=== PATIENT | male | born 1970 | race Caucasian/White ===

== ENCOUNTER 2018-06-22 18:12 | Inpatient (IN) ==
--- NOTE | 2018-06-22 19:45 | Internal Med History&Physical ---
Addendum entered and electronically signed by Eros Martinez DO 06/23/18 01:09: Correct Date of Encounter: 06/22/18 Original Note: <Eros Martinez - Last Filed: 06/23/18 00:07> Date of Encounter: 06/23/18 Time of Encounter: 19:44 Internal Medicine - H&P: HPI Chief complaint: Hyperglycemia Admitted From: Intrahospital Transfer ([facility]) Plans for Post Hospital Care: Home History of present illness: Mr. Harry is a 47 year old male with a past medical history of CAD status post CABG, AAA, hypertension, MEGHAN, and tobacco dependence who presented from [facility] ER secondary to DKA. His anion gap is 16 he was started on insulin drip. Triglyceride level was not tested. Patient denies history of diabetes in the past and reports recently undergoing left iliac emobilization on 06/13/18 by vascular surgeon, Dr. Clarke. Patient reports associated cramping epigastric pain for the past 1 week, greasy stools, 1 episode of vomiting last night, polydipsia, polyphagia, polyuria, fatigue, blurry vision, headache, dizziness, and worsening tingling in his extremities. Patient reports tingling initially started his head and neck and has now radiated to his bilateral arms and legs. He reports occasional shortness of breath and has not smoked in the past 3 days secondary to current symptoms. Patient also reports 3 days of burning with urination, urinary frequency, urinary urgency, white discharge beneath his foreskin, and has history of Escherichia coli UTI on 05/21/17. He denies any associated muscle weakness, fevers, chills, nausea, diarrhea, constipation, new sexual contacts, or pedal edema. Past Med Surg Social Fam HX - Past Medical History Medical history: arthritis, COPD, coronary artery disease, hyperlipidemia, hypertension Additional medical history: sleep apnea, neuropathy Psychiatric history: depression - Past Surgical History Surgical History: coronary bypass (CABG) (Three-vessel CABG in September 2014) Additional surgical history: Left iliac artery embolization 06/13/18, inguinal hernia repair in childhood, right upper extremity tendon repair - Social History Smoking Status: Current every day smoker Smokeless Tobacco Status: No Alcohol use: none Drug use: none Current living situation: Home, With Family Activity Level: Independent ambulation - Family History Son Hx Family Cardiac Disorders: Yes (Hypertension) Grandmother Hx Family Endocrine Disorder: Yes (DM) Paternal Name: Uncles Hx Family Endocrine Disorder: Yes (DM) Internal Medicine - H&P: Meds Amlodipine Besylate 10 mg PO DAILY 05/21/17 [History] Fluticasone Propionate Nasal [Flonase] 50 mcg NS DAILY 05/21/17 [History] Omeprazole [PriLOSEC] 20 mg PO DAILY 05/21/17 [History] Gabapentin [Neurontin] 800 mg PO TID 06/13/18 [History] Atorvastatin [Lipitor] 40 mg PO HS 06/22/18 [History] Losartan/Hydrochlorothiazide [Hyzaar 100-25 Tablet] 0.5 tab PO BID 06/22/18 [ History] Metoprolol [Lopressor] 25 mg PO BID 06/23/18 [History] Venlafaxine XR (24 HR) [Effexor XR] 75 mg PO DAILY 06/23/18 [History] 3 Allergy/AdvReac Type Severity Reaction Status Date / Time lisinopril Allergy Severe Swelling Verified 05/21/17 16:15 of Lip/Tongue/Throat codeine Allergy Intermediate Difficulty Verified 05/21/17 16:15 Breathing All Systems PM: A 10-system review of systems was performed and is negative for pertinent findings except as documented above in the HPI. - Constitutional Constitutional: anorexia, fatigue, lethargy, no chills, no fever(s), no weight gain, no weight loss - EENT Eyes: blurry vision, change in vision Nose, mouth and throat: dry mouth, no sore throat - Cardiovascular Cardiovascular ROS IM: chest pain (Epigastric), dyspnea, lightheadedness, no palpitations - Respiratory Respiratory: dyspnea on exertion - Gastrointestinal Gastrointestinal: abdominal pain, cramping, nausea, vomiting, no constipation ( 2 BMs today, normal), no diarrhea - Genitourinary Genitourinary ROS male: dysuria, genital pain, urinary frequency, urinary urgency - Musculoskeletal Musculoskeletal ROS IM: tingling, no muscle weakness - Integumentary Integumentary IM: erythema, new lesions - Neurological Neurological ROS: dizziness, headache(s), tingling, weakness, no numbness - Psychiatric Psychiatric: no anxiety, no confusion, no depression - Endocrine Endocrine IM: fatigue, polydipsia, polyphagia, polyuria - Hematologic/Lymphatic Hematologic/Lymphatic: no easy bleeding, no easy bruising - Constitutional General appearance: Present: cooperative, mild distress, pleasant, obese Exam: Conversant - Head Head exam: Present: atraumatic, normocephalic - Eye Eye exam: Present: EOMI, conjuntiva pink, sclera anicteric - ENT ENT exam: Present: mucous membranes dry, normal oropharynx - Neck Neck exam general surgery: Present: supple, trachea midline. Absent: lymphadenopathy - Respiratory Respiratory exam: Present: CTAB. Absent: accessory muscle use, rales, respiratory distress, rhonchi, wheezes - Cardiovascular Cardiovascular exam: Present: RRR, +S1, +S2. Absent: diastolic murmur, gallop, rubs, systolic murmur - GI/Abdominal GI/Abdominal exam: Present: guarding (Voluntary), normal bowel sounds, soft, tenderness (Diffuse tenderness to light and deep palpation), no peritoneal signs. Absent: distended, pulsatile mass - exam: Absent: circumcision (Erythema, no paraphimosis, small amount of white discharge under foreskin) External exam: Present: erythema - Extremities Exam Extremities exam: Present: normal inspection, warm, radial pulses palpable and symmetrical. Absent: calf tenderness, cyanotic, pedal edema - Back Exam Back exam: Present: normal inspection. Absent: paraspinal tenderness, tenderness - Neurological Exam Neurological exam: Present: CN II-XII intact, oriented X3, no focal deficits. Absent: pronater drift, facial droop, speech deficit - Psychiatric Psychiatric exam: Present: normal affect, normal mood - Skin Skin exam: Present: dry, intact Internal Med - H&P Results - Labs CBC & Chem 7: 06/22/18 20:36 - EKG Data -: EKG Interpreted by Myself EKG shows normal: sinus rhythm (new flipped T weighs in leads V2 and V3 since previous EKG 06/13/18) - EKG Data Prior EKG available for review: yes When compared to previous EKG: there are significant changes - Impressions XR/XR chest 1V portable IMPRESSION: No acute findings. No change. D/ / 06/22/2018 15:41:33 Demario Johnson MD / nicolette Interpreting Provider: Demario Johnsno MD R #: [id number] CT/CT head/brain wo con IMPRESSION: Small focus of age-indeterminate ischemia in the left caudate head and adjacent internal capsule. No acute hemorrhage. D/ / Maxwell Shabazz MD / Maxwell Shabazz MD Interpreting Provider: Maxwell Shabazz MD R #: [id number] CT/CT angio aorta w con runoff IMPRESSION: 1. 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 Coils are not present within the adjacent left common iliac artery aneurysm. 2. Stable 5.1 cm infrarenal abdominal aortic aneurysm. As previously noted the recommended follow-up is vascular surgery consultation and six-month follow-up CT scan. 3. Cholelithiasis without evidence for acute cholecystitis. 4. Findings suggest cirrhosis and portal hypertension. 5. Diverticulosis without scan evidence for diverticulitis. D/ / Maxwell Shabazz MD / Maxwell Shabazz MD Interpreting Provider: Maxwell Shabazz MD - Assessment and plan (1) DKA (diabetic ketoacidoses) Current Visit: Yes Status: Resolved Assessment and plan: Glucose level 623, elevated beta hydroxybutyric acid > 2 Anion gap 16, patient started on insulin drip prior to transfer Repeat anion gap 6, start basal insulin and stop insulin drip Qualifiers: Diabetes mellitus type: type 2 Diabetes mellitus complication detail: without coma Qualified Code(s): E11.10 - Type 2 diabetes mellitus with ketoacidosis without coma (2) DM (diabetes mellitus), type 2, uncontrolled Current Visit: Yes Status: Acute Assessment and plan: Newly diagnosed diabetes mellitus type 2 Hemoglobin A1c level 12.0 Continue Accu-Cheks and low dose SSI Patient will need to start antigylcemic therapy upon discharge and close outpatient management of diabetes Dietary consulted for diabetic diet education Qualifiers: Glycemic state: with hyperglycemia Qualified Code(s): E11.65 - Type 2 diabetes mellitus with hyperglycemia (3) Blurry vision, bilateral Current Visit: Yes Status: Acute Assessment and plan: Patient reports headache, blurry vision, and dizziness CT brain revealed small focus of age-indeterminate ischemia in the left caudate head and adjacent internal capsule. No acute hemorrhage. MRI brain pending Bilateral carotid ultrasound pending Continue aspirin Consider neurology consult in AM for further recommendations Patient will need annual eye exams the setting of newly diagnosed diabetes (4) GHASSAN (acute kidney injury) Current Visit: Yes Status: Acute Assessment and plan: Prerenal GHASSAN in the setting of polyuria, polydipsia, DKA Serum creatinine 1.39, baseline 0.97 Continue IV hydration Repeat serum creatinine level 1.10 Continue monitoring (5) CAD (coronary artery disease) Current Visit: Yes Status: Chronic Assessment and plan: Patient had three-vessel CABG in September 2014 Continue aspirin and statin Cardiology consulted Qualifiers: Coronary Disease-Associated Artery/Lesion type: [place] artery [place] vs. transplanted heart: [place] heart Associated angina: with unspecified angina Qualified Code(s): I25.119 - Atherosclerotic heart disease of [place] coronary artery with unspecified angina pectoris (6) EKG abnormality Current Visit: Yes Status: Acute Assessment and plan: Diabetic patient with history of three-vessel CABG in September 2014 EKG shows new flipped T weighs in leads V2 and V3 since previous EKG 06/13/18 Serial troponins < 0.03 x2, trend serial troponins Cardiology consulted for further recommendations Spoke with multi purpose machine operator, Dr. Read, no indication to start Heparin drip at this time. Will continue IV hydration and repeat EKG once contraction alkalosis resolved (7) AAA (abdominal aortic aneurysm) Current Visit: Yes Status: Chronic Assessment and plan: Patient reports cramping abdominal pain 04/11/18 abdominal ultrasound revealed 5.2 cm aortic aneurysm, increased in size from 4.7 cm on 09/26/17 On 06/23/18 patient underwent left iliac artery embolization by vascular surgeon , Dr. Jaimes CTA revealed stable 5.1 cm infrarenal abdominal aortic aneurysm Patient will require future endovascular repair of AAA Continue blood pressure control Continue beta jam for hypertension Continue risk factor modification including tobacco cessation Qualifiers: Presence of rupture: without rupture Qualified Code(s): I71.4 - Abdominal aortic aneurysm, without rupture (8) HTN (hypertension) Current Visit: Yes Status: Chronic Assessment and plan: Continue beta jam Qualifiers: Hypertension type: essential hypertension Qualified Code(s): I10 - Essential (primary) hypertension (9) Hypertriglyceridemia Current Visit: Yes Status: Acute Assessment and plan: Triglyceride level 718, Repeat triglyceride level pending CT reveals cholelithiasis without evidence for acute cholecystitis, and findings suggestive of cirrhosis and portal hypertension. Resume home statin (10) Balanitis Current Visit: Yes Status: Acute Assessment and plan: Uncircumcised patient with history of burning with micturition, urinary frequency, urinary urgency, and 3 days of white discharge beneath foreskin, no paraphimosis Start Clotrimazole 1% twice daily for 7 days and continue good hygiene Patient has history of Escherichia coli UTI on 05/21/17, repeat UA pending (11) Tobacco dependence Current Visit: Yes Status: Chronic Assessment and plan: Tobacco cessation discussed (12) MEGHAN (obstructive sleep apnea) Current Visit: Yes Status: Chronic Assessment and plan: Continue CPAP at bedtime (13) Obesity (BMI 30-39.9) Current Visit: Yes Status: Chronic Assessment and plan: BMI 39.7, lifestyle modification Dietitian consulted (14) DVT prophylaxis Current Visit: Yes Status: Acute Assessment and plan: EPCDs - Time Spent With Patient Total time spent is greater than 50% in coordination of care (as documented) at patient's floor/unit and/or counseling patient: <Facundo Mullins A - Last Filed: 06/24/18 08:50> Date of Encounter: 06/23/18 Internal Medicine - H&P: HPI History of present illness: Mr. Harry is a 47 year old male All Systems PM: A 10-system review of systems was performed and is negative for pertinent findings except as documented above in the HPI. - Constitutional Vitals: Temp Pulse Resp BP Pulse Ox 97.8 F 53 16 148/82 100 06/23/18 00:06 06/23/18 02:00 06/23/18 02:00 06/23/18 02:00 06/23/18 02:00 Internal Med - H&P Results - Labs CBC & Chem 7: 06/23/18 03:07 06/23/18 03:07 Labs: BMP 06/22/18 20:36 Sodium 131 L D Potassium 3.0 L Chloride 94 L Carbon Dioxide 26 BUN 24 H Creatinine 1.10 Glucose 273 H Calcium 9.2 Cardiac Enzymes 06/22/18 Range/Units 20:36 Troponin I < 0.03 (< 0.04) ng/mL Liver Function 06/22/18 Range/Units 20:36 Total Bilirubin 0.7 (0.3-1.0) mg/dL Direct Bilirubin 0.2 (0.0-0.2) mg/dL AST 45 H (13-39) Units/L ALT 48 (7-52) Units/L Alkaline Phosphatase 108 H (34-104) Units/L Albumin 4.1 (3.5-5.7) g/dL Urine 06/23/18 Range/Units 01:25 Urine Color Yellow (Yellow) Urine Clarity Clear (Clear) Urine pH 6.0 (5.0-8.0) pH Units Ur Specific [place] 1.015 (1.010-1.025) Urine Protein 100 H (Neg-Trace) mg/dL Urine Glucose (UA) 500 H (Normal) mg/dL - Impressions ITS Impressions Aorta w/Runoff CTA 06/22/18 19:55 IMPRESSION: 1. 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 Coils are not present within the adjacent left common iliac artery aneurysm. 2. Stable 5.1 cm infrarenal abdominal aortic aneurysm. As previously noted the recommended follow-up is vascular surgery consultation and six-month follow-up CT scan. 3. Cholelithiasis without evidence for acute cholecystitis. 4. Findings suggest cirrhosis and portal hypertension. 5. Diverticulosis without scan evidence for diverticulitis. D/ / Maxwell Shabazz MD / Maxwell Shabazz MD Interpreting Provider: Maxwell Shabazz MD Head CT 06/22/18 20:22 IMPRESSION: Small focus of age-indeterminate ischemia in the left caudate head and adjacent internal capsule. No acute hemorrhage. D/ / Maxwell Shabazz MD / Maxwell Shabazz MD Interpreting Provider: Maxwell Shabazz MD - Assessment and plan (1) DKA (diabetic ketoacidoses) Current Visit: Yes Status: Resolved Qualifiers: Diabetes mellitus type: type 2 Diabetes mellitus complication detail: without coma Qualified Code(s): E11.10 - Type 2 diabetes mellitus with ketoacidosis without coma (2) DM (diabetes mellitus), type 2, uncontrolled Current Visit: Yes Status: Acute Qualifiers: Glycemic state: with hyperglycemia Qualified Code(s): E11.65 - Type 2 diabetes mellitus with hyperglycemia (3) Obesity (BMI 30-39.9) Current Visit: Yes Status: Chronic (4) MEGHAN (obstructive sleep apnea) Current Visit: Yes Status: Chronic (5) Balanitis Current Visit: Yes Status: Acute (6) AAA (abdominal aortic aneurysm) Current Visit: Yes Status: Chronic Qualifiers: Presence of rupture: without rupture Qualified Code(s): I71.4 - Abdominal aortic aneurysm, without rupture (7) HTN (hypertension) Current Visit: Yes Status: Chronic Qualifiers: Hypertension type: essential hypertension Qualified Code(s): I10 - Essential (primary) hypertension (8) DVT prophylaxis Current Visit: Yes Status: Acute (9) CAD (coronary artery disease) Current Visit: Yes Status: Chronic Qualifiers: Coronary Disease-Associated Artery/Lesion type: bypass graft [place] vs. transplanted heart: [place] heart Associated angina: without angina Qualified Code(s): I25.810 - Atherosclerosis of coronary artery bypass graft(s) without angina pectoris (10) Blurry vision, bilateral Current Visit: Yes Status: Acute (11) GHASSAN (acute kidney injury) Current Visit: Yes Status: Resolved (12) Hypertriglyceridemia Current Visit: Yes Status: Acute (13) EKG abnormality Current Visit: Yes Status: Acute (14) Tobacco dependence Current Visit: Yes Status: Chronic - Time Spent With Patient Total time spent is greater than 50% in coordination of care (as documented) at patient's floor/unit and/or counseling patient: - Attending Attestation seen and examined. Chart reviewed. Case discussed with resident. Patient admitted to ICU for close monitoring and treatment for DKA in the setting of abdominal pain and history of 5.2 cm abdominal aortic aneurysm and EKG changes. Case discussed with cardiology, Dr. Read, who reviewed the EKG. Does not feel findings on EKG to be secondary to acute coronary syndrome. Patient received loading dose of aspirin. Will continue monitoring on telemetry. Patient also sent for abdominal CT due to abdominal pain and history of 5.2 cm aortic aneurysm. Finding shows stable 5.1 cm infrarenal abdominal aortic aneurysm. At this time we will continue treatment for DKA. We will monitor closely ICU. Continue with blood pressure and Pain control.
[2018-06-22] MEDS ORDERED: Naloxone 0.4 MG/ML INJ IVP PRN ×2 (19:46→23:05)
[2018-06-22] MEDS ORDERED: OXYCODONE Oral CONC 10 MG/0.5 ML ORAL.SYG SL PRN ×2 (19:46)
[2018-06-22] MEDS ORDERED: *HR* Dextrose 50 % in Water (Syg) 50 ML SYRINGE IVP PRN ×2 (19:46→21:38)
[2018-06-22] MEDS ORDERED: D5% in 0.45% NACL w KCl 20 MEQ/1,000 ML MLS IVC PRN (19:46)
[2018-06-22] MEDS ORDERED: Ondansetron 4 MG/2 ML VIAL IVP PRN (19:46)
[2018-06-22] MEDS ORDERED: Insulin LISPRO 300 UNITS/3 ML VIAL SQ PRN (19:46)
[2018-06-22] MEDS ORDERED: Ipratropium/Albuterol Neb 3 ML IH PRN (19:54)
[2018-06-22] MEDS ORDERED: Isovue-370 500 ML INFUS..BTL IV ONE (19:55)
[2018-06-22] MEDS ORDERED: Pantoprazole 40 MG VIAL IVP SCH (20:00)
[2018-06-22] MEDS ORDERED: 0.45 % Sodium Chloride w/KCl 20 MEQ/1,000 ML MLS IVC SCH (20:00)
[2018-06-22] MEDS ORDERED: Insulin Human Regular 100 UNIT in 0.9 % Sodium Chloride 100 ML IVC SCH (20:00)
[2018-06-22] MEDS ORDERED: Aspirin 325 MG TABLET PO ONE (20:30)
[2018-06-22 21:04] LABS: INR 1.2; Prothrombin Time 13.1 Seconds (9.4-12.1)
[2018-06-22 21:15] LABS: Troponin I < 0.03 ng/mL (< 0.04)
[2018-06-22 21:18] LABS: Alanine Aminotransferase 48 Units/L (7-52); Albumin 4.1 g/dL (3.5-5.7); Albumin/Globulin Ratio 1.2 (1.1-2.2); Alkaline Phosphatase 108 Units/L (34-104); Aspartate Amino Transferase 45 Units/L (13-39); BUN/Creatinine Ratio 22 (6-26); Bilirubin,Direct 0.2 mg/dL (0.0-0.2); Bilirubin,Indirect 0.5 mg/dL (0.0-1.2); Bilirubin,Total 0.7 mg/dL (0.3-1.0); Blood Urea Nitrogen 24 mg/dL (6-20); Calcium 9.2 mg/dL (8.6-10.3); Carbon Dioxide 26 mEq/L (23-29); Chloride 94 mEq/L (98-107); Chol/HDL Ratio 10.9 (0-4.9); Cholesterol 217 mg/dL (< 200); Globulin 3.3 g/dL (2.4-3.5); Glucose 273 mg/dL (70-105); HDL Cholesterol 20 mg/dL (40-59); Magnesium 2.2 mg/dL (1.6-2.6); Osmolality,Calculated 286 (280-300); Sodium 131 mEq/L (136-145); Total Protein 7.4 g/dL (6.4-8.9); Triglycerides 718 mg/dL (< 150); eGFR For Non-African Americans > 60 (> 60)
[2018-06-22] MEDS ORDERED: D5% in Water 1,000 ML IVC PRN (21:38)
[2018-06-22] MEDS ORDERED: Dextrose Gel 15 GM/37.5 ML TUBE PO PRN ×2 (21:38)
[2018-06-22] MEDS ORDERED: 0.9 % Sodium Chloride 1,000 ML IVC SCH (22:00)
[2018-06-22] MEDS ORDERED: Insulin DETEMIR 100 UNIT/ML X5UNITS SQ SCH (22:30)
[2018-06-22] MEDS: Insulin LISPRO 300 UNITS/3 ML VIAL SQ SCH (22:31)
[2018-06-22] MEDS: Clotrimazole 1% CRM 15 GM TUBE TP SCH (22:34)
[2018-06-22] MEDS ORDERED: Gadolinium Contrast Agent (WT Based) IV PRN (22:49)
[2018-06-23 01:40] LABS: Bilirubin,Urine Small (Negative); Blood,Urine Trace-intact (Negative); Clarity,Urine Clear (Clear); Color,Urine Yellow (Yellow); Glucose,Urine (UA) 500 mg/dL (Normal); Ketones,Urine Trace mg/dL (Negative); Leukocyte Esterase,Urine Negative (Negative); Nitrite,Urine Negative (Negative); Protein,Urine 100 mg/dL (Neg-Trace); Specific Gravity,Urine 1.015 (1.010-1.025)
[2018-06-23 01:50] LABS: Bacteria,Urine Few per hpf (None-Few); Hyaline Casts,Urine Few per lpf (None-Few); Mucus,Urine Few (Few); RBC,Urine 0-3 per hpf (0-3); Squamous Epithelial Cell,Urine Few per lpf (None-Few); WBC,Urine 0-3 per hpf (0-3); Yeast,Urine Moderate per hpf (None Seen)
[2018-06-23 03:40] LABS: Basophils % 0.3 %; Eosinophils # 0.1 K/mcL (0.0-0.6); Eosinophils % 1.2 %; Hematocrit 40.4 % (37.5-50.1); Hemoglobin 14.3 g/dL (12.9-16.9); Immature Granulocytes % 0.2 % (0-4); Lymphocytes # 2.9 K/mcL (0.6-4.6); Lymphocytes % 32.7 %; Mean Corpuscular HGB Conc 35.4 g/dL (31.6-35.5); Mean Corpuscular Hemoglobin 31.8 pg (28.0-33.3); Mean Platelet Volume 11.2 fL (9.4-12.4); Monocytes # 0.9 K/mcL (0.0-1.3); Monocytes % 10.5 %; Neutrophils # 4.9 K/mcL (1.6-8.9); Platelet Count 131 K/mcL (140-400); Red Blood Count 4.49 M/mcL (4.19-5.50); Red Cell Distribution Width 12.8 % (11.5-14.5); Segmented Neutrophils % 55.1 %
[2018-06-23 04:02] LABS: Alanine Aminotransferase 43 Units/L (7-52); Albumin 3.7 g/dL (3.5-5.7); Albumin/Globulin Ratio 1.2 (1.1-2.2); Alkaline Phosphatase 96 Units/L (34-104); Aspartate Amino Transferase 48 Units/L (13-39); BUN/Creatinine Ratio 24 (6-26); Bilirubin,Total 0.6 mg/dL (0.3-1.0); Blood Urea Nitrogen 23 mg/dL (6-20); Calcium 8.8 mg/dL (8.6-10.3); Carbon Dioxide 28 mEq/L (23-29); Chloride 96 mEq/L (98-107); Globulin 3.1 g/dL (2.4-3.5); Glucose 170 mg/dL (70-105); Osmolality,Calculated 282 (280-300); Potassium 3.2 mEq/L (3.5-5.1); Sodium 132 mEq/L (136-145); Total Protein 6.8 g/dL (6.4-8.9); eGFR For Non-African Americans > 60 (> 60)
--- NOTE | 2018-06-23 08:35 | Internal Med Progress Note ---
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 Patient's DKA has resolved this morning Patient awaiting MRI for concerns of possible CVA due to visual changes; suspect visual changes secondary to uncontrolled hyperglycemia Patient also with EKG changes therefore cardiology consulted with recommendations for echocardiogram and possible stress/LHC - Exam Vitals: Temp Pulse Resp BP Pulse Ox 97.8 F 53 16 143/86 100 06/23/18 00:06 06/23/18 06:00 06/23/18 06:00 06/23/18 06:00 06/23/18 06:00 Exam: Gen.: Nonacute distress, alert and oriented 3 ENT: Mucosal membranes moist Respiratory: Lungs are clear to auscultation bilaterally without any wheezing rhonchi or rales Cardiovascular: Normal S1 and S2 regular rate rhythm no murmurs rubs or gallops Abdomen: Soft, nontender and nondistended with positive bowel sounds Extremities: No lower extremity edema Skin: Normal colornt - Assessment and Plan (1) DKA (diabetic ketoacidoses) Current Visit: Yes Status: Resolved Assessment and Plan: Resolved; patient started on basal insulin Patient with a hemoglobin A1c of 12.0 Will continue to monitor (2) Blurry vision, bilateral Current Visit: Yes Status: Acute Assessment and Plan: Patient reports headache, blurry vision, and dizziness Suspect symptoms secondary to uncontrolled hyperglycemia CT brain revealed small focus of age-indeterminate ischemia in the left caudate head and adjacent internal capsule. No acute hemorrhage. MRI brain pending Bilateral carotid ultrasound pending (3) EKG abnormality Current Visit: Yes Status: Acute Assessment and Plan: Diabetic patient with history of three-vessel CABG in September 2014 EKG shows new flipped T weighs in leads V2 and V3 since previous EKG 06/13/18 Serial troponins < 0.03 x2, trend serial troponins Cardiology consulted for recommendations for echocardiogram and possible stress tests/LHC Appreciate any further recommendations (4) CAD (coronary artery disease) Current Visit: Yes Status: Chronic Assessment and Plan: Patient had three-vessel CABG in September 2014 Continue aspirin and statin Cardiology consulted (5) AAA (abdominal aortic aneurysm) Current Visit: Yes Status: Chronic Assessment and Plan: Patient reports cramping abdominal pain 04/11/18 abdominal ultrasound revealed 5.2 cm aortic aneurysm, increased in size from 4.7 cm on 09/26/17 On 06/23/18 patient underwent left iliac artery embolization by vascular surgeon , Dr. Jaimes CTA revealed stable 5.1 cm infrarenal abdominal aortic aneurysm Patient will require future endovascular repair of AAA Continue blood pressure control Continue beta jam for hypertension Continue risk factor modification including tobacco cessation (6) GHASSAN (acute kidney injury) Current Visit: Yes Status: Resolved Assessment and Plan: Resolved; continue to monitor (7) Hypertriglyceridemia Current Visit: Yes Status: Acute Assessment and Plan: Triglyceride level 718, Repeat triglyceride 626CT reveals cholelithiasis without evidence for acute cholecystitis, and findings suggestive of cirrhosis and portal hypertension. Resume home statin (8) Balanitis Current Visit: Yes Status: Acute Assessment and Plan: Uncircumcised patient with 3 days of white discharge beneath foreskin, no paraphimosis Continue Clotrimazole 1% twice daily for 7 days and continue good hygiene (9) HTN (hypertension) Current Visit: Yes Status: Chronic Assessment and Plan: Continue beta jam (10) Tobacco dependence Current Visit: Yes Status: Chronic Assessment and Plan: Tobacco cessation discussed (11) MEGHAN (obstructive sleep apnea) Current Visit: Yes Status: Chronic Assessment and Plan: Continue CPAP at bedtime (12) Obesity (BMI 30-39.9) Current Visit: Yes Status: Chronic Assessment and Plan: BMI 39.7, lifestyle modification Dietitian consulted (13) DVT prophylaxis Current Visit: Yes Status: Acute Assessment and Plan: Subcutaneous heparin - Time Spent with Patient Total time spent is greater than 50% in coordination of care (as documented) at patient's floor/unit and/or counseling patient: Internal Medicine: Result - Labs CBC & Chem 7: 06/23/18 03:07 06/23/18 03:07 Labs: Short CBC 06/23/18 Range/Units 03:07 WBC 8.9 (4.3-11.1) K/mcL Hgb 14.3 D (12.9-16.9) g/dL Hct 40.4 (37.5-50.1) % Plt Count 131 L (140-400) K/mcL Neutrophils # 4.9 (1.6-8.9) K/mcL BMP 06/22/18 06/23/18 20:36 03:07 Sodium 131 L D 132 L Potassium 3.0 L 3.2 L Chloride 94 L 96 L Carbon Dioxide 26 28 BUN 24 H 23 H Creatinine 1.10 0.96 Glucose 273 H 170 H Calcium 9.2 8.8 Cardiac Enzymes 06/22/18 06/23/18 Range/Units 20:36 03:07 Troponin I < 0.03 < 0.03 (< 0.04) ng/mL Liver Function 06/22/18 06/23/18 Range/Units 20:36 03:07 Total Bilirubin 0.7 0.6 (0.3-1.0) mg/dL Direct Bilirubin 0.2 (0.0-0.2) mg/dL AST 45 H 48 H (13-39) Units/L ALT 48 43 (7-52) Units/L Alkaline Phosphatase 108 H 96 (34-104) Units/L Albumin 4.1 3.7 (3.5-5.7) g/dL Urine 06/23/18 Range/Units 01:25 Urine Color Yellow (Yellow) Urine Clarity Clear (Clear) Urine pH 6.0 (5.0-8.0) pH Units Ur Specific [place] 1.015 (1.010-1.025) Urine Protein 100 H (Neg-Trace) mg/dL Urine Glucose (UA) 500 H (Normal) mg/dL - ABG Interpretation ABG results: PT/INR, D-dimer PT 13.1 Seconds (9.4-12.1) H 06/22/18 20:36 - Impressions Impressions Aorta w/Runoff CTA 06/22/18 19:55 IMPRESSION: 1. 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 Coils are not present within the adjacent left common iliac artery aneurysm. 2. Stable 5.1 cm infrarenal abdominal aortic aneurysm. As previously noted the recommended follow-up is vascular surgery consultation and six-month follow-up CT scan. 3. Cholelithiasis without evidence for acute cholecystitis. 4. Findings suggest cirrhosis and portal hypertension. 5. Diverticulosis without scan evidence for diverticulitis. D/ / Maxwell Shabazz MD / Maxwell Shabazz MD Interpreting Provider: Maxwell Shabazz MD Head CT 06/22/18 20:22 IMPRESSION: Small focus of age-indeterminate ischemia in the left caudate head and adjacent internal capsule. No acute hemorrhage. D/ / Maxwell Shabazz MD / Maxwell Shabazz MD Interpreting Provider: Maxwell Shabazz MD Consult Discharge Plan - Plan Referrals: Gene Barragan CNP [Primary Care Provider] - (1) DKA (diabetic ketoacidoses) Qualifiers: Diabetes mellitus type: type 2 Diabetes mellitus complication detail: without coma Qualified Code(s): E11.10 - Type 2 diabetes mellitus with ketoacidosis without coma (4) CAD (coronary artery disease) Qualifiers: Coronary Disease-Associated Artery/Lesion type: bypass graft [place] vs. transplanted heart: [place] heart Associated angina: without angina Qualified Code(s): I25.810 - Atherosclerosis of coronary artery bypass graft(s) without angina pectoris (5) AAA (abdominal aortic aneurysm) Qualifiers: Presence of rupture: without rupture Qualified Code(s): I71.4 - Abdominal aortic aneurysm, without rupture (9) HTN (hypertension) Qualifiers: Hypertension type: essential hypertension Qualified Code(s): I10 - Essential (primary) hypertension
[2018-06-23] MEDS: Nicotine 7 MG PATCH.TD24 TD SCH (08:37)
[2018-06-23] MEDS: Insulin LISPRO 300 UNITS/3 ML VIAL SQ SCH ×4 (08:37→20:50)
[2018-06-23] MEDS: Acetaminophen 325 MG TABLET PO PRN (08:38)
[2018-06-23] MEDS: Fluticasone Propionate Nasal 50 MCG/SPRAY BOTTLE NS SCH (08:38)
[2018-06-23] MEDS: Aspirin 81 MG TAB.CHEW PO SCH (08:38)
[2018-06-23] MEDS: Venlafaxine XR (24 HR) 75 MG CAP.ER.24H PO SCH (08:38)
[2018-06-23] MEDS: Clotrimazole 1% CRM 15 GM TUBE TP SCH ×2 (08:38→20:51)
[2018-06-23] MEDS: amLODIPine 5 MG TABLET PO SCH (08:38)
[2018-06-23] MEDS ORDERED: Pantoprazole 40 MG VIAL IVP SCH (09:00)
[2018-06-23] MEDS ORDERED: *HR* Heparin 5,000 UNIT/ML VIAL SQ SCH (11:00)
[2018-06-23] MEDS: Insulin DETEMIR 100 UNIT/ML X5UNITS SQ SCH ×2 (11:08→20:51)
[2018-06-23] MEDS: *HR* Heparin 5,000 UNIT/ML VIAL SQ SCH ×2 (15:29→23:27)
--- NOTE | 2018-06-23 17:12 | Cardiology Consult Note ---
Date of Encounter: 06/23/18 Time of Encounter: 09:30 Assessment and Plan (1) EKG abnormality Current Visit: Yes Status: Acute EKG shows anterior T wave abnormality that was not present before. Given risk factors and borderline abnormal stress test 2 weeks ago, we recommend cardiac catheterization once patient's DKA and possible stroke are resolved. (2) CAD (coronary artery disease) Current Visit: Yes Status: Chronic History of CABG 4 yrs ago, continue aspirin, high intensity statin, B jam. Coronary angiogram to check if grafts are patent once acute issues are resolved. Qualifiers: Coronary Disease-Associated Artery/Lesion type: bypass graft [place] vs. transplanted heart: [place] heart Associated angina: without angina Qualified Code(s): I25.810 - Atherosclerosis of coronary artery bypass graft(s) without angina pectoris (3) AAA (abdominal aortic aneurysm) Current Visit: Yes Status: Chronic AAA with 5.1cm infrarenally on CT stable. 5.2cm on abdominal USS 04/[address] every 6months. B jam and ACEI to control blood pressure. Smoking cessation advised. Ready to quit. Qualifiers: Presence of rupture: without rupture Qualified Code(s): I71.4 - Abdominal aortic aneurysm, without rupture (4) Blurry vision, bilateral Current Visit: Yes Status: Acute Patient complained of blurry vision on admission which prompted a CT head which showed: Small focus of age-indeterminate ischemia in the left caudate head and adjacent internal capsule. No acute hemorrhage. MRI is pending. - at this time, no visual disturbance. - continue aspirin, statin - recommend neurology consult (5) Tobacco dependence Current Visit: Yes Status: Chronic Urged to quit smoking. Discussion w patient/family: The assessment and plan as outlined above was discussed with the patient and/or family members who expressed understanding and agreement. All questions were answered. Thank you for involving us in the care of your patient. Please call with any questions. History of Present Illness Consult date: 06/23/18 Requesting physician: Subhash Martinez Consult reason: Abnormal EKG Chief complaint: DKA History of present illness: Mr. Harry is a 47 year old male gentleman with a past medical history of CAD status post CABG, AAA, hypertension, MEGHAN, and tobacco dependence who was admitted as a transfer from [facility] for DKA with classic symptoms of diabetes mellitus, as well as blurry vision. His anion gap was 16 on admission. Patient was not previously known to be diabetic. He has history of coronary artery disease for which he received three-vessel bypass in 2013. He has been followed by Dr. Olmstead. He recently underwent left iliac embolization on 06/13/18 by vascular surgeon, Dr. Clarke. On admission he was found to have abnormal T-wave depressions in the anterior leads which were not present in previous EKGs. He denies chest pain, palpitations, or shortness of breath. He is able to walk up a flight of stairs without chest pain or shortness of breath. His last echo was in March 2017 which showed normal EF with no significant valvular dysfunction. He had a pharm nuclear stress test on 06/11/2018 which showed small mild reversible perfusion defect in mid inferolateral segments likely suggestive of minimal ischemia. LVEF 50 %, global hypokinesia. No ischemic stress ECG findings. Past Med Surg Social Fam HX - Past Medical History Medical history: arthritis, COPD, coronary artery disease, hyperlipidemia, hypertension Additional medical history: sleep apnea, neuropathy Psychiatric history: depression - Past Surgical History Surgical History: coronary bypass (CABG) (Three-vessel CABG in September 2014) Additional surgical history: Left iliac artery embolization 06/13/18, inguinal hernia repair in childhood, right upper extremity tendon repair - Social History Smoking Status: Current every day smoker Smokeless Tobacco Status: No Alcohol use: none Drug use: none - Family History Son Hx Family Cardiac Disorders: Yes (Hypertension) Grandmother Hx Family Endocrine Disorder: Yes (DM) Paternal Name: Uncles Hx Family Endocrine Disorder: Yes (DM) Medications and Allergies Amlodipine Besylate 10 mg PO DAILY 05/21/17 [History] Fluticasone Propionate Nasal [Flonase] 50 mcg NS DAILY 05/21/17 [History] Omeprazole [PriLOSEC] 20 mg PO DAILY 05/21/17 [History] Gabapentin [Neurontin] 800 mg PO TID 06/13/18 [History] Atorvastatin [Lipitor] 40 mg PO HS 06/22/18 [History] Losartan/Hydrochlorothiazide [Hyzaar 100-25 Tablet] 0.5 tab PO BID 06/22/18 [ History] Metoprolol [Lopressor] 25 mg PO BID 06/23/18 [History] Venlafaxine XR (24 HR) [Effexor XR] 75 mg PO DAILY 06/23/18 [History] 3 Allergy/AdvReac Type Severity Reaction Status Date / Time lisinopril Allergy Severe Swelling Verified 05/21/17 16:15 of Lip/Tongue/Throat codeine Allergy Intermediate Difficulty Verified 05/21/17 16:15 Breathing All Systems Review: The remainder of the systems were reviewed and are negative - Constitutional Constitutional: no anorexia, no chills, no fatigue, no fever(s), no weight gain - EENT Eyes: no blurred vision Nose, mouth and throat: no bleeding gums, no odynophagia - Cardiovascular Cardiovascular: no chest pain at rest, no chest pain with exertion, no claudication, no diaphoresis, no irregular heart rhythm, no rapid heart rate - Respiratory Respiratory: no cough, no dyspnea - Gastrointestinal Gastrointestinal: no dysphagia, no hematemesis - Genitourinary Genitourinary: dysuria - Musculoskeletal Musculoskeletal: no abnormal gait - Integumentary Integumentary: no erythema, no unusual bruising - Neurological Neurological: no abnormal speech, no syncope - Psychiatric Psychiatric: no anxiety - Hematological/Lymphatic Hematologic/Lymphatic: no easy bleeding Physical Examination Vital Signs, Last 4 Hours Pulse Resp BP Pulse Ox 06/23/18 16:00 73 17 167/97 99 06/23/18 15:41 70 06/23/18 14:00 56 18 164/101 96 General: Conversant HEENT: Atraumatic Neck: No JVD, Normal carotid pulses Cardiac: Reg Rate and Rhythm, Normal S1 and S2 Lungs: Normal Breath Sounds, No Wheeze, Rales, Rhonchi Neuro: Alert and responsive, No focal deficits noted Abdomen: Soft, Non-Tender Musculoskeletal: No Chest Wall Tenderness Extremities: No Edema Results 06/23/18 03:07 06/23/18 03:07 Lab Results 06/22/18 06/22/18 06/23/18 20:36 20:36 03:07 WBC 8.9 Hgb 14.3 D Hct 40.4 Plt Count 131 L INR 1.2 APTT 29.0 Sodium 131 L D Potassium 3.0 L Chloride 94 L Carbon Dioxide 26 BUN 24 H Creatinine 1.10 Glucose 273 H Calcium 9.2 Magnesium 2.2 Total Bilirubin 0.7 AST 45 H ALT 48 Alkaline Phosphatase 108 H Troponin I < 0.03 06/23/18 06/23/18 03:07 03:07 WBC Hgb Hct Plt Count INR APTT Sodium 132 L Potassium 3.2 L Chloride 96 L Carbon Dioxide 28 BUN 23 H Creatinine 0.96 Glucose 170 H Calcium 8.8 Magnesium Total Bilirubin 0.6 AST 48 H ALT 43 Alkaline Phosphatase 96 Troponin I < 0.03 Consult Discharge Plan - Plan Referrals: Gene Barragan CNP [Primary Care Provider] -
[2018-06-23] MEDS: Gabapentin 400 MG CAPSULE PO SCH (21:09)
[2018-06-24] MEDS: *HR* Heparin 5,000 UNIT/ML VIAL SQ SCH ×3 (07:58→23:51)
[2018-06-24] MEDS: Venlafaxine XR (24 HR) 75 MG CAP.ER.24H PO SCH (07:58)
[2018-06-24] MEDS: Nicotine 7 MG PATCH.TD24 TD SCH ×2 (07:58→18:17)
[2018-06-24] MEDS: amLODIPine 5 MG TABLET PO SCH (07:58)
[2018-06-24] MEDS: Insulin LISPRO 300 UNITS/3 ML VIAL SQ SCH ×4 (07:59→20:08)
[2018-06-24] MEDS: Gabapentin 400 MG CAPSULE PO SCH ×3 (07:59→20:07)
[2018-06-24] MEDS: Clotrimazole 1% CRM 15 GM TUBE TP SCH ×2 (07:59→20:08)
[2018-06-24] MEDS: Aspirin 81 MG TAB.CHEW PO SCH (07:59)
[2018-06-24] MEDS: Fluticasone Propionate Nasal 50 MCG/SPRAY BOTTLE NS SCH (07:59)
--- NOTE | 2018-06-24 08:58 | Neurology - Consult Note ---
Date of Encounter: 06/24/18 Time of Encounter: 08:54 Assessment and Plan (1) Blurry vision, bilateral Current Visit: Yes Status: Acute In this scenario, I would be highly suspicious of visual changes perhaps associated with his acute DKA. However certainly has risk factors for stroke and since the visual changes affect both eyes I would like to be certain that he has not suffered an acute cerebral infarct. His symptoms are not consistent with amaurosis fugax. MRI scan of the brain is yet pending. Further recommendations will be made pending the MRI results. Otherwise appropriate treatment of his DKA and other metabolic problems are indicated. I will reevaluate him tomorrow. Critical care time spent evaluating this patient was 45 minutes. History of Present Illness HPI: The chart was reviewed, patient was seen and examined independently. Mr. Harry is a 47 year old male seen for neurologic consultation at the request of the hospitalist group due to visual changes. Patient has a past medical history of coronary artery disease ,TIA, Uncontrolled diabetes mellitus and also has a more recent history of a left iliac embolization which was done in June of this year. He presented to the hospital with complaints of abdominal discomfort. He is found to be in DKA and also mention blurred vision. He states however his vision was blurred prior to coming to the hospital. He denies associated headache. The visual changes affect both eyes. He does not describe hemianopsia. CT scan of the brain revealed an age indeterminate infarct in the head of the left caudate nucleus. This finding was not present on an MRI study which was completed in March 2017. Patient denies any focal or lateralizing symptoms however has general paresthesias of the hands and feet likely due to his history of diabetes mellitus. Past Med Surg Social Fam HX - Past Medical History Medical history: arthritis, COPD, coronary artery disease, hyperlipidemia, hypertension Additional medical history: sleep apnea, neuropathy Psychiatric history: depression - Past Surgical History Surgical History: coronary bypass (CABG) (Three-vessel CABG in September 2014) Additional surgical history: Left iliac artery embolization 06/13/18, inguinal hernia repair in childhood, right upper extremity tendon repair - Social History Smoking Status: Current every day smoker Smokeless Tobacco Status: No Alcohol use: none Drug use: none - Family History Son Hx Family Cardiac Disorders: Yes (Hypertension) Grandmother Hx Family Endocrine Disorder: Yes (DM) Paternal Name: Uncles Hx Family Endocrine Disorder: Yes (DM) Medications and Allergies Amlodipine Besylate 10 mg PO DAILY 05/21/17 [History] Fluticasone Propionate Nasal [Flonase] 50 mcg NS DAILY 05/21/17 [History] Omeprazole [PriLOSEC] 20 mg PO DAILY 05/21/17 [History] Gabapentin [Neurontin] 800 mg PO TID 06/13/18 [History] Atorvastatin [Lipitor] 40 mg PO HS 06/22/18 [History] Losartan/Hydrochlorothiazide [Hyzaar 100-25 Tablet] 0.5 tab PO BID 06/22/18 [ History] Metoprolol [Lopressor] 25 mg PO BID 06/23/18 [History] Venlafaxine XR (24 HR) [Effexor XR] 75 mg PO DAILY 06/23/18 [History] 3 Allergy/AdvReac Type Severity Reaction Status Date / Time lisinopril Allergy Severe Swelling Verified 05/21/17 16:15 of Lip/Tongue/Throat codeine Allergy Intermediate Difficulty Verified 05/21/17 16:15 Breathing All Systems: The remainder of the systems were reviewed and are negative Review of Systems: The balance of the systems review is negative. Physical Examination - Vital Signs Vital Signs: Initial Vital Signs Pulse 80 06/22/18 19:46 - Neurologic Detailed motor examination: full strength in all major muscle groups Motor examination - right side: 5/5: deltoids, biceps, triceps, wrist flexion, wrist extension, quality assurance assistant, hip flexors, tibialis Anterior, quadriceps, toe extension (EHL), plantarflexion Motor examination - left side: 5/5: deltoids, biceps, triceps, wrist flexion, wrist extension, hip flexors, quality assurance assistant, quadriceps, tibialis Anterior, toe extension (EHL), plantarflexion Detailed sensory examination: other (Decreased sensation to pinprick in the distal to proximal gradient.) Reflex and gait examination: other (Deep tendon reflexes are diminished throughout. No long tract signs are present.) Mental Status Examination: awake, alert, oriented to person, oriented to place, oriented to time, follows commands appropriately, answers questions appropriately, no agnosia, no aphasia, no aproxia Cranial nerve examination: PERRL, EOMI, visual madrigal intact (Patient has no symptoms of hemianopsia denies any visual field obstruction in either eye. He does have general blurring of both eyes.), corneal reflexes brisk symmetrically , sensory to face intact, mastication intact, no facial asymmetry is present, no dysarthria, hearing is intact symmetrically, soft palate elevates bilaterally upon phonation, gag reflex intact, flexes SCM and trapezius muscles symmetrically with full power, tongue protrudes midline, no atrophy or facial fasiculations present Cerebellar examination: no dysmetria, performs finger to nose and heel to valdez symmetrically without ataxia, no gait ataxia, no truncal ataxia, no difficulty with rapid alternating movements Results - Laboratory Findings CBC and BMP: 06/23/18 03:07 06/23/18 03:07 Abnormal lab findings: Abnormal lab results Plt Count 131 K/mcL (140-400) L 06/23/18 03:07 PT 13.1 Seconds (9.4-12.1) H 06/22/18 20:36 Sodium 132 mEq/L (136-145) L 06/23/18 03:07 Potassium 3.2 mEq/L (3.5-5.1) L 06/23/18 03:07 Chloride 96 mEq/L (98-107) L 06/23/18 03:07 BUN 23 mg/dL (6-20) H 06/23/18 03:07 Glucose 170 mg/dL (70-105) H 06/23/18 03:07 POC Glucose 392 mg/dL (70-99) H 06/23/18 19:54 AST 48 Units/L (13-39) H 06/23/18 03:07 Triglycerides 626 mg/dL (< 150) H 06/23/18 03:07 Cholesterol 217 mg/dL (< 200) H 06/22/18 20:36 HDL Cholesterol 20 mg/dL (40-59) L 06/22/18 20:36 Cholesterol/HDL Ratio 10.9 (0-4.9) H 06/22/18 20:36 Urine Protein 100 mg/dL (Neg-Trace) H 06/23/18 01:25 Urine Glucose (UA) 500 mg/dL (Normal) H 06/23/18 01:25 Urine Ketones Trace mg/dL (Negative) H 06/23/18 01:25 Urine Blood Trace-intact (Negative) H 06/23/18 01:25 Urine Bilirubin Small (Negative) H 06/23/18 01:25 Urine Urobilinogen 4.0 mg/dL (Normal) H 06/23/18 01:25 Urine Yeast Moderate per hpf (None Seen) H 06/23/18 01:25 Consult Discharge Plan - Plan Referrals: Gene Barragan CNP [Primary Care Provider] -
[2018-06-24 09:43] LABS: BUN/Creatinine Ratio 19 (6-26); Blood Urea Nitrogen 17 mg/dL (6-20); Calcium 8.8 mg/dL (8.6-10.3); Carbon Dioxide 28 mEq/L (23-29); Chloride 96 mEq/L (98-107); Glucose 333 mg/dL (70-105); Osmolality,Calculated 289 (280-300); Potassium 3.4 mEq/L (3.5-5.1); Sodium 132 mEq/L (136-145); eGFR For Non-African Americans > 60 (> 60)
[2018-06-24] MEDS: Insulin DETEMIR 100 UNIT/ML X5UNITS SQ SCH ×2 (09:48→20:08)
[2018-06-24] MEDS ORDERED: Insulin DETEMIR 100 UNIT/ML X5UNITS SQ ONE (11:00)
--- NOTE | 2018-06-24 11:52 | Internal Med Progress Note ---
Hospitalist Progress Note - Encounter Date of Encounter: 06/24/18 Time of Encounter: 09:30 - Subjective Interval History: no abd pain, nausea, emesis. No current chest pain, palpitations. sob at baseline per pt but does not wear home o2. denies hx of diabetes and not on any insulin at home. - Exam Vitals: Temp Pulse Resp BP Pulse Ox 97.7 F 82 16 143/93 98 06/24/18 07:40 06/24/18 10:00 06/24/18 10:00 06/24/18 10:00 06/24/18 10:00 Exam: General: awake, alert, appears stated age HEENT:EOM intact pupils equal, round, moist mucus membranes, clear oropharynx Neck: supple, trachea midline Cardiovascular:regular rate and rhythm, normal S1 & S2, no rubs, murmurs or gallops appreciated. No JVD. radial pulses 2+, no lower extremity edema Lungs:Normal breath sounds, no wheezes, or crackles. Normal respiratory effort on O2 NC Abdomen:Soft, non-tender, non-distended, + bowel sounds Extremities:No deformity, no edema or tenderness, no joint swelling or clubbing. Neurological: AAOx3, CN grossly intact, strength 5/5 throughout and sensation intact to light touch throughout all ext. Skin:Normal color, no rash, no pallor, no jaundice - Assessment and Plan (1) DKA (diabetic ketoacidoses) Current Visit: Yes Status: Resolved Assessment and Plan: Resolved, AG closed, remains Hyperglycemic with glc in 300s New Diagnosis of Diabetes Mellitus Patient with a hemoglobin A1c of 12.0 started on Levemir--uptitrating dosing -accu checks and SSI -Diabetes education ordered -will need all supplies and close PCP fu on dc (2) DM (diabetes mellitus), type 2, uncontrolled Current Visit: Yes Status: Acute Assessment and Plan: Newly diagnosed diabetes mellitus type 2 Hemoglobin A1c level 12.0 Continue Accu-Cheks and low dose SSI Patient will need to start antigylcemic therapy upon discharge and close outpatient management of diabetes Dietary consulted for diabetic diet education gabapentin-cont home dosing for neuropathy treatment/fu as above (3) Obesity (BMI 30-39.9) Current Visit: Yes Status: Chronic Assessment and Plan: BMI 39.7, lifestyle modification Dietitian consulted (4) MEGHAN (obstructive sleep apnea) Current Visit: Yes Status: Chronic Assessment and Plan: Continue CPAP at bedtime (5) Balanitis Current Visit: Yes Status: Acute Assessment and Plan: Uncircumcised patient with 3 days of white discharge beneath foreskin, no paraphimosis Continue Clotrimazole 1% twice daily for 7 days and continue good hygiene (6) AAA (abdominal aortic aneurysm) Current Visit: Yes Status: Chronic Assessment and Plan: Patient reports cramping abdominal pain 04/11/18 abdominal ultrasound revealed 5.2 cm aortic aneurysm, increased in size from 4.7 cm on 09/26/17 On 06/23/18 patient underwent left iliac artery embolization by vascular surgeon , Dr. Jaimes CTA revealed stable 5.1 cm infrarenal abdominal aortic aneurysm Patient will require future endovascular repair of AAA Continue blood pressure control Continue beta jam for hypertension Continue risk factor modification including tobacco cessation Vasc Surgery consult placed 06/23, eval pending cardiology following--Serial imaging with CT every 6months. B jam and ACEI to control blood pressure. (7) HTN (hypertension) Current Visit: Yes Status: Chronic Assessment and Plan: BPs most recently 140s/90s In setting of AAA but also confirming if acute CVA with MRI pending, at this time cont current regimen, close monitoring and fu MRI -cont norvasc 10 g daily, Lopressor 25 mg BID -will add Lisinopril this admit once MRI obtained and confirm if acute CVA (8) CAD (coronary artery disease) Current Visit: Yes Status: Chronic Assessment and Plan: Patient had three-vessel CABG in September 2014 -EKG with Twave abnormality not present on prior, also had abnormal stress test 2 weeks ago -cardiology following--rec is for [facility] once dka and [ossible cva stabilized Continue aspirin and statin + BB (9) Blurry vision, bilateral Current Visit: Yes Status: Acute Assessment and Plan: Patient reports headache, blurry vision, and dizziness, rule out acute CVA Suspect symptoms secondary to uncontrolled hyperglycemia CT brain revealed small focus of age-indeterminate ischemia in the left caudate head and adjacent internal capsule. No acute hemorrhage. MRI brain pending Bilateral carotid ultrasound pending echo pending read Neurology following at this time BPs are being treated given his AAA dx, however, no further adjustments to BP meds while awaiting MRI result as to not drop too quickly given risk vs benefit with co morbidities at this time, bps currently 140s/90s neuro checks without noted changes (10) GHASSAN (acute kidney injury) Current Visit: Yes Status: Resolved Assessment and Plan: Resolved; continue to monitor (11) Hypertriglyceridemia Current Visit: Yes Status: Acute Assessment and Plan: Triglyceride level 718, Repeat triglyceride 626. CT reveals cholelithiasis without evidence for acute cholecystitis, and findings suggestive of cirrhosis and portal hypertension. Resume home statin fu with pcp outpt (12) EKG abnormality Current Visit: Yes Status: Acute Assessment and Plan: Diabetic patient with history of three-vessel CABG in September 2014 EKG shows new flipped T weighs in leads V2 and V3 since previous EKG 06/13/18 Serial troponins < 0.03 x2, trend serial troponins Cardiology consulted and rec for possible stress tests/LHC with resolution of dka and stroke work up see above (13) Tobacco dependence Current Visit: Yes Status: Chronic Assessment and Plan: Tobacco cessation discussed nicotine patch (14) DVT prophylaxis Current Visit: Yes Status: Acute Assessment and Plan: Subcutaneous heparin - Time Spent with Patient Total time spent is greater than 50% in coordination of care (as documented) at patient's floor/unit and/or counseling patient: 25 - 35 minutes Plan of Care Discussed with: patient Internal Medicine: Result - Labs CBC & Chem 7: 06/23/18 03:07 06/24/18 08:46 Labs: BMP 06/24/18 08:46 Sodium 132 L Potassium 3.4 L Chloride 96 L Carbon Dioxide 28 BUN 17 Creatinine 0.91 Glucose 333 H Calcium 8.8 - ABG Interpretation ABG results: PT/INR, D-dimer PT 13.1 Seconds (9.4-12.1) H 06/22/18 20:36 - Impressions Impressions Echocardiogram 06/23/18 08:37 Impressions: LVEF 50%. LV systolic function grossly appears low normal. However, the LV subendocardial border is not well visualized in all views. Consider repeat limited study with Definity. Atypical septal motion consistent with post-operative status. Mild left ventricular diastolic dysfunction. Normal right ventricular structure and function. No significant valvular dysfunction. No pulmonary hypertension based on TR gradient obtained. No evidence of PFO with agitated saline contrast. Left Ventricular Wall Motion: Rest Echo Findings All wall segments showed normal motion. Findings: Study Quality * Technically adequate exam. ECG Findings * Normal sinus rhythm. Left Ventricle * LVEF 50%. * Atypical septal motion consistent with post-operative status. * Mild left ventricular diastolic dysfunction. * Normal LV chamber size and wall thickness. Right Ventricle * Normal right ventricular structure and function. Left Atrium * Mildly dilated left atrium. Right Atrium * Normal right atrial size. Mitral Valve * Normal mitral valve structure. * No mitral stenosis. * No mitral regurgitation. Aortic Valve * No aortic regurgitation. * Aortic valve not well visualized. * No aortic stenosis. Tricuspid Valve * Tricuspid valve not well visualized. * Trace tricuspid regurgitation. Pulmonic Valve * Pulmonic valve is not well visualized. * No pulmonic stenosis. * No pulmonic regurgitation. Pulmonary Artery * Pulmonary artery not well visualized. Aorta * Normally sized aortic root. Pericardium * There is no pericardial effusion present. Interatrial Septum * No evidence of PFO by color Doppler. * No evidence of PFO with agitated saline contrast. IVC * The IVC is not well evaluated. Consult Discharge Plan - Plan Referrals: Gene Barragan BARREL BUILDER [Primary Care Provider] - (1) DKA (diabetic ketoacidoses) Qualifiers: Diabetes mellitus type: type 2 Diabetes mellitus complication detail: without coma Qualified Code(s): E11.10 - Type 2 diabetes mellitus with ketoacidosis without coma (2) DM (diabetes mellitus), type 2, uncontrolled Qualifiers: Glycemic state: with hyperglycemia Qualified Code(s): E11.65 - Type 2 diabetes mellitus with hyperglycemia (6) AAA (abdominal aortic aneurysm) Qualifiers: Presence of rupture: without rupture Qualified Code(s): I71.4 - Abdominal aortic aneurysm, without rupture (7) HTN (hypertension) Qualifiers: Hypertension type: essential hypertension Qualified Code(s): I10 - Essential (primary) hypertension (8) CAD (coronary artery disease) Qualifiers: Coronary Disease-Associated Artery/Lesion type: bypass graft [place] vs. transplanted heart: [place] heart Associated angina: without angina Qualified Code(s): I25.810 - Atherosclerosis of coronary artery bypass graft(s) without angina pectoris
--- NOTE | 2018-06-24 13:11 | Cardiology Progress Note ---
Date of Encounter: 06/24/18 Time of Encounter: 13:07 Assessment and Plan (1) EKG abnormality Current Visit: Yes Status: Acute EKG shows new anterior T wave abnormality. Given risk factors and borderline abnormal stress test 2 weeks ago, would ideally recommend LHC. However, brain MRI reveals punctate acute infarcts are seen within the right flores as well as the left parietal lobe white matter. There likely is subacute infarcts within the left posterior periventricular white matter. Given acute CVAs, recommend medical management of his CAD/abnormal stress test. Start Imdur 30mg daily. Close outpt follow-up and can consider outpt LHC in 3-6 months. Cardiology signing off. Reconsult PRN. Follow-up with cardiology in 2-3 weeks as outpt. (2) CAD (coronary artery disease) Current Visit: Yes Status: Chronic History of CABG 4 yrs ago, continue aspirin, high intensity statin, B jam. Qualifiers: Coronary Disease-Associated Artery/Lesion type: bypass graft [place] vs. transplanted heart: [place] heart Associated angina: without angina Qualified Code(s): I25.810 - Atherosclerosis of coronary artery bypass graft(s) without angina pectoris (3) AAA (abdominal aortic aneurysm) Current Visit: Yes Status: Chronic AAA with 5.1cm infrarenally on CT stable. 5.2cm on abdominal USS 04/[address] every 6months. B jam and ACEI to control blood pressure. Smoking cessation advised. Ready to quit. Qualifiers: Presence of rupture: without rupture Qualified Code(s): I71.4 - Abdominal aortic aneurysm, without rupture Discussion w patient/family: The assessment and plan as outlined above was discussed with the patient and/or family members who expressed understanding and agreement. All questions were answered. Thank you for involving us in the care of your patient. Please call with any questions. I will discuss all the above with Dr. Lopez and make changes as necessary. Subjective Principal diagnosis: CVA, DKA Interval history: MRI resulted--1. Punctate acute infarcts are seen within the right flores as well as the left parietal lobe white matter. 2. There likely is subacute infarcts within the left posterior periventricular white matter. 3. There is no mass effect or midline shift. 4. Mild global parenchymal volume loss. 5. Right mastoid effusion. Pt denies chest pain or dyspnea. Reports head/neck pain. TTE resulted--EF 50%. Objective Vital Signs, Last 4 Hours Temp Pulse Resp BP Pulse Ox 06/24/18 12:00 97.8 F 75 14 129/84 99 06/24/18 10:00 82 16 143/93 98 Vital Signs Temp Pulse Resp BP Pulse Ox 06/24/18 12:00 97.8 F 75 14 129/84 99 06/24/18 10:00 82 16 143/93 98 06/24/18 08:00 73 11 138/75 93 06/24/18 07:40 97.7 F 06/24/18 05:58 61 14 149/87 98 06/24/18 04:21 98.2 F 06/24/18 03:55 70 06/24/18 03:00 56 14 143/90 96 06/24/18 01:00 64 12 148/89 97 06/24/18 00:00 70 06/23/18 23:53 98.3 F 06/23/18 22:00 65 12 177/109 98 06/23/18 20:54 98.0 F 06/23/18 20:00 66 20 175/104 99 06/23/18 18:00 84 21 155/102 99 06/23/18 16:00 73 17 167/97 99 06/23/18 15:41 70 06/23/18 14:00 56 18 164/101 96 Intake and Output 06/23/18 06/24/18 06/24/18 23:59 07:59 15:59 Intake Total 500 / 500 500 / 500 Output Total 500 / 500 975 / 975 Balance 0 / 0 -475 / -475 Intake: Oral 500 / 500 500 / 500 Output: Urine 500 / 500 975 / 975 Other: Weight 124.7 kg Blood Glucose* 392 238 General: Conversant, No Apparent Distress HEENT: Atraumatic, Normocephaly, Mucus Membranes Moist Neck: No JVD, Normal carotid pulses Cardiac: Reg Rate and Rhythm, Normal S1 and S2, No Murmur Lungs: Normal Breath Sounds, No Wheeze, Rales, Rhonchi Neuro: Alert and responsive, No focal deficits noted Abdomen: Soft, Non-Tender Skin: No rashes noted on visualized skin Musculoskeletal: No Chest Wall Tenderness Extremities: No Clubbing, No Cyanosis, No Edema, Normal Pulses Results 06/23/18 03:07 06/24/18 08:46 Lab Results 06/24/18 08:46 Sodium 132 L Potassium 3.4 L Chloride 96 L Carbon Dioxide 28 BUN 17 Creatinine 0.91 Glucose 333 H Calcium 8.8 BMP 06/24/18 Range/Units 08:46 Sodium 132 L (136-145) mEq/L Potassium 3.4 L (3.5-5.1) mEq/L Chloride 96 L (98-107) mEq/L Carbon Dioxide 28 (23-29) mEq/L BUN 17 (6-20) mg/dL Creatinine 0.91 (0.70-1.30) mg/dL Glucose 333 H (70-105) mg/dL Calcium 8.8 (8.6-10.3) mg/dL Impressions Echocardiogram 06/23/18 08:37 Impressions: LVEF 50%. LV systolic function grossly appears low normal. However, the LV subendocardial border is not well visualized in all views. Consider repeat limited study with Definity. Atypical septal motion consistent with post-operative status. Mild left ventricular diastolic dysfunction. Normal right ventricular structure and function. No significant valvular dysfunction. No pulmonary hypertension based on TR gradient obtained. No evidence of PFO with agitated saline contrast. Left Ventricular Wall Motion: Rest Echo Findings All wall segments showed normal motion. Findings: Study Quality * Technically adequate exam. ECG Findings * Normal sinus rhythm. Left Ventricle * LVEF 50%. * Atypical septal motion consistent with post-operative status. * Mild left ventricular diastolic dysfunction. * Normal LV chamber size and wall thickness. Right Ventricle * Normal right ventricular structure and function. Left Atrium * Mildly dilated left atrium. Right Atrium * Normal right atrial size. Mitral Valve * Normal mitral valve structure. * No mitral stenosis. * No mitral regurgitation. Aortic Valve * No aortic regurgitation. * Aortic valve not well visualized. * No aortic stenosis. Tricuspid Valve * Tricuspid valve not well visualized. * Trace tricuspid regurgitation. Pulmonic Valve * Pulmonic valve is not well visualized. * No pulmonic stenosis. * No pulmonic regurgitation. Pulmonary Artery * Pulmonary artery not well visualized. Aorta * Normally sized aortic root. Pericardium * There is no pericardial effusion present. Interatrial Septum * No evidence of PFO by color Doppler. * No evidence of PFO with agitated saline contrast. IVC * The IVC is not well evaluated. Brain MRI 06/24/18 22:49 IMPRESSION: 1. Punctate acute infarcts are seen within the right flores as well as the left parietal lobe white matter. 2. There likely is subacute infarcts within the left posterior periventricular white matter. 3. There is no mass effect or midline shift. 4. Mild global parenchymal volume loss. 5. Right mastoid effusion. These results were sent to the [facility] ([facility]) on 06/24/2018 at 12:25 pm to be communicated to the referring/covering health care provider/office. D/ / Yunier Alston MD / Yunier Alston MD Interpreting Provider: Yunier Alston MD Active Medications Acetaminophen (Tylenol) 650 mg PO Q6HR PRN PRN Reason: Mild Pain/Fever Stop: 12/22/18 19:47 Last Admin: 06/23/18 08:38 Dose: 650 mg Albuterol/Ipratropium (Duoneb) 3 ml IH [id number] PRN PRN Reason: Shortness Of Breath/Wheezing Stop: 12/22/18 19:55 Amlodipine Besylate (Norvasc) 10 mg PO DAILY JAKY Stop: 12/23/18 09:01 Last Admin: 06/24/18 07:58 Dose: 10 mg Aspirin (Aspirin) 81 mg PO DAILY JAKY Stop: 12/23/18 09:01 Last Admin: 06/24/18 07:59 Dose: 81 mg Atorvastatin Calcium (Lipitor) 40 mg PO DAILY JAKY Stop: 12/22/18 21:46 Last Admin: 06/24/18 07:59 Dose: 40 mg Clotrimazole (Lotrimin 1%) 1 appl TP BID JAKY PRN Reason: Protocol Stop: 06/29/18 21:01 Last Admin: 06/24/18 07:59 Dose: 1 appl Dextrose/Water (Dextrose 50% (Syg)) 25 ml IVP Q15MIN PRN PRN Reason: Hypoglycemia Stop: 12/22/18 19:47 Dextrose/Water (Dextrose 50% (Syg)) 25 ml IVP AD PRN PRN Reason: Hypoglycemia Stop: 12/22/18 21:39 Fluticasone Propionate (Flonase) 50 mcg NS DAILY JAKY PRN Reason: Protocol Stop: 12/23/18 09:01 Last Admin: 06/24/18 07:59 Dose: 50 mcg Gabapentin (Neurontin) 800 mg PO TID [facility] Stop: 12/23/18 21:01 Last Admin: 06/24/18 07:59 Dose: 800 mg Gadobutrol (Gadolinium Contrast Agent (Wt Based)) 1 each IV ONCE PRN; Protocol PRN Reason: SEE COMMENTS Stop: 06/24/18 22:50 Glucagon (Glucagen) 1 mg IM ONCE PRN PRN Reason: Hypoglycemia Stop: 12/22/18 21:39 Glucose (Gluctose) 15 gm PO ONCE PRN PRN Reason: Hypoglycemia Stop: 12/22/18 21:39 Glucose (Gluctose) 30 gm PO ONCE PRN PRN Reason: Hypoglycemia Stop: 12/22/18 21:39 Heparin Sodium (Porcine) (Heparin) 5,000 unit SQ Q8H [facility] Stop: 12/23/18 11:01 Last Admin: 06/24/18 07:58 Dose: 5,000 unit Dextrose (Dextrose 5%) 1,000 mls @ 100 mls/hr IVC .Q10H PRN PRN Reason: HYPOGLYCEMIA Stop: 12/22/18 21:39 Insulin Detemir (Levemir) 30 unit 0.15 unit/kg (18 unit) SQ BID [facility] Stop: 12/22/18 22:31 Insulin Human Lispro (Humalog) 0 units SQ TIDAC [facility] PRN Reason: Protocol Stop: 12/23/18 07:31 Last Admin: 06/24/18 12:07 Dose: 10 units Insulin Human Lispro (Humalog) 0 units SQ HS [facility] PRN Reason: Protocol Stop: 12/22/18 21:46 Last Admin: 06/23/18 20:50 Dose: 6 units Metoprolol Tartrate (Lopressor) 25 mg PO BID [facility] Stop: 12/23/18 01:01 Last Admin: 06/24/18 07:58 Dose: 25 mg Naloxone HCl (Narcan) 0.4 mg IVP Q2MIN PRN PRN Reason: SEE COMMENTS Stop: 12/22/18 23:06 Nicotine (Nicoderm) 7 mg TD DAILY [facility] PRN Reason: Protocol Stop: 12/23/18 09:01 Last Admin: 06/24/18 07:58 Dose: 7 mg Omeprazole (Prilosec) 20 mg PO DAILY@0730 JAKY Stop: 12/24/18 07:31 Last Admin: 06/24/18 07:58 Dose: 20 mg Ondansetron HCl (Zofran) 4 mg IVP Q6HR PRN; Protocol PRN Reason: Nausea And Vomiting Stop: 12/22/18 19:47 Oxycodone HCl (Oxycodone Oral Conc) 5 mg SL Q4H PRN; Protocol PRN Reason: mild to moderate pain Stop: 12/22/18 19:47 Oxycodone HCl (Oxycodone Oral Conc) 10 mg SL Q4H PRN; Protocol PRN Reason: Severe Pain Stop: 12/22/18 19:47 Venlafaxine HCl (Effexor Xr) 75 mg PO DAILY [facility] Stop: 12/23/18 09:01 Last Admin: 06/24/18 07:58 Dose: 75 mg - Imaging and Cardiology Echo: report reviewed Consult Discharge Plan - Plan Referrals: Gene Barragan, NURSE PRACTITIONER MANAGER [Primary Care Provider] -
[2018-06-24] MEDS: Isosorbide MONOnitrate (24 HR) 30 MG TAB.ER.24H PO SCH (13:46)
--- NOTE | 2018-06-24 17:35 | Electrocardiograph Report ---
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
--- NOTE | 2018-06-24 17:39 | Electrocardiograph Report ---
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
--- NOTE | 2018-06-24 18:54 | Vascular/Endovasc Consult Note ---
Date of Encounter: 06/24/18 Time of Encounter: 17:45 Assessment and Plan (1) DM (diabetes mellitus), type 2, uncontrolled Current Visit: Yes Status: Acute Recent diagnosis of diabetes. This is under management at this time. The patient 's aware that he will require further evaluation and treatment for his diabetes before any surgical procedure can be performed. In addition the patient is to have a future outpatient cardiac catheterization but this is being temporarily postponed to allow metabolic stabilization. Qualifiers: Glycemic state: with hyperglycemia Qualified Code(s): E11.65 - Type 2 diabetes mellitus with hyperglycemia (2) Obesity (BMI 30-39.9) Current Visit: Yes Status: Chronic Patient has chronic history of obesity. (3) AAA (abdominal aortic aneurysm) Current Visit: Yes Status: Chronic Patient has an approximately 5.2 cm infrarenal abdominal aortic aneurysm area status post successful coiling of the left internal iliac artery in preparation for future endovascular aneurysm repair. Due to the new diagnosis of diabetes, acute stroke, and cardiac issues with cardiac catheterization pending the patient is not a candidate for aneurysm repair in the near future. These medical workups need to be complete and his diabetes control before he would be considered appropriate candidate for aneurysm repair. He remains asymptomatic from the abdominal aortic aneurysm. These issues were reviewed with the patient today and he understands the importance of controlling his medical diagnoses before entertaining surgical treatment. Qualifiers: Presence of rupture: without rupture Qualified Code(s): I71.4 - Abdominal aortic aneurysm, without rupture (4) HTN (hypertension) Current Visit: Yes Status: Chronic Patient has a history of chronic hypertension that is poorly controlled. Qualifiers: Hypertension type: essential hypertension Qualified Code(s): I10 - Essential (primary) hypertension - History of Present Illness Consult date: 06/24/18 Chief complaint: Abdominal aortic aneurysm History of present illness: Mr. Harry is a 47 year old male Well-known to the vascular surgery service. The patient was being prepared for an endovascular repair of an abdominal aortic aneurysm for next week. However he presented to the [facility] emergency room and then was transferred to [place] in these past few days. He was found to be in diabetic ketoacidosis with a blood sugar greater than 600. This is a new diagnosis. The patient was also found to have an acute stroke as well as cardiac irregularities. Patient is in the process of workup for these problems. [place] surgery was asked to see the patient as he was admitted. In preparation for his endovascular aneurysm repair the patient had coiling of the left internal iliac artery on June 13. A total of 4 coils were placed into the proximal left internal iliac artery without complication. The patient has done very well following placement of these coils. The coil placement has not been a contributing factor to any of the ongoing issues and the patient has had no findings to suggest bowel ischemia. Past Med Surg Social Fam HX - Past Medical History Medical history: arthritis, COPD, coronary artery disease, hyperlipidemia, hypertension Additional medical history: sleep apnea, neuropathy Psychiatric history: depression - Past Surgical History Surgical History: coronary bypass (CABG) (Three-vessel CABG in September 2014) Additional surgical history: Left iliac artery embolization 06/13/18, inguinal hernia repair in childhood, right upper extremity tendon repair - Social History Smoking Status: Current every day smoker Smokeless Tobacco Status: No Alcohol use: none Drug use: none - Family History Son Hx Family Cardiac Disorders: Yes (Hypertension) Grandmother Hx Family Endocrine Disorder: Yes (DM) Paternal Name: Uncles Hx Family Endocrine Disorder: Yes (DM) Medications and Allergies Amlodipine Besylate 10 mg PO DAILY 05/21/17 [History] Fluticasone Propionate Nasal [Flonase] 50 mcg NS DAILY 05/21/17 [History] Omeprazole [PriLOSEC] 20 mg PO DAILY 05/21/17 [History] Gabapentin [Neurontin] 800 mg PO TID 06/13/18 [History] Atorvastatin [Lipitor] 40 mg PO HS 06/22/18 [History] Losartan/Hydrochlorothiazide [Hyzaar 100-25 Tablet] 0.5 tab PO BID 06/22/18 [ History] Metoprolol [Lopressor] 25 mg PO BID 06/23/18 [History] Venlafaxine XR (24 HR) [Effexor XR] 75 mg PO DAILY 06/23/18 [History] 3 Allergy/AdvReac Type Severity Reaction Status Date / Time lisinopril Allergy Severe Swelling Verified 05/21/17 16:15 of Lip/Tongue/Throat codeine Allergy Intermediate Difficulty Verified 05/21/17 16:15 Breathing All Systems Review: The remainder of the systems were reviewed and are negative Exam Vital Signs, Last 4 Hours Temp Pulse Resp BP Pulse Ox 06/24/18 16:34 98 F 06/24/18 16:00 98 F 80 14 142/88 98 General: Present: Conversant, No Apparent Distress, Other (Obese) HEENT: Present: Atraumatic, Normocephaly, Trachea midline Neck: Absent: JVD Cardiac: Present: Reg Rate and Rhythm Neuro: Present: Alert and responsive, No focal deficits noted, Cranial nerves grossly intact Abdomen: Present: Soft, Non-tender Skin: Present: No rashes noted on visualized skin Consult Discharge Plan - Plan Referrals: Gene Barragan CAMERA TECHNICIAN [Primary Care Provider] -
[2018-06-25 04:44] LABS: Eosinophils % 1.2 %; Immature Granulocytes % 0.3 % (0-4); Mean Platelet Volume 11.4 fL (9.4-12.4)
[2018-06-25 04:46] LABS: Basophils % 0.2 %; Eosinophils # 0.1 K/mcL (0.0-0.6); Hematocrit 40.1 % (37.5-50.1); Hemoglobin 14.1 g/dL (12.9-16.9); Immature Platelets 8.2 % (1.1-6.1); Lymphocytes # 2.2 K/mcL (0.6-4.6); Lymphocytes % 36.2 %; Mean Corpuscular HGB Conc 35.2 g/dL (31.6-35.5); Mean Corpuscular Hemoglobin 32.6 pg (28.0-33.3); Mean Corpuscular Volume 92.6 fL (83.0-100.0); Monocytes # 0.6 K/mcL (0.0-1.3); Monocytes % 9.7 %; Neutrophils # 3.2 K/mcL (1.6-8.9); Red Blood Count 4.33 M/mcL (4.19-5.50); Red Cell Distribution Width 12.4 % (11.5-14.5); Segmented Neutrophils % 52.4 %
[2018-06-25 05:19] LABS: Platelet Count 84 K/mcL (140-400)
[2018-06-25 05:20] LABS: Platelet Estimate Decreased (Normal)
[2018-06-25 05:44] LABS: Alanine Aminotransferase 101 Units/L (7-52); Albumin 3.5 g/dL (3.5-5.7); Albumin/Globulin Ratio 1.2 (1.1-2.2); Alkaline Phosphatase 81 Units/L (34-104); Aspartate Amino Transferase 130 Units/L (13-39); BUN/Creatinine Ratio 19 (6-26); Bilirubin,Total 0.6 mg/dL (0.3-1.0); Blood Urea Nitrogen 15 mg/dL (6-20); Calcium 8.8 mg/dL (8.6-10.3); Carbon Dioxide 27 mEq/L (23-29); Chloride 100 mEq/L (98-107); Globulin 2.9 g/dL (2.4-3.5); Glucose 147 mg/dL (70-105); Osmolality,Calculated 284 (280-300); Potassium 3.1 mEq/L (3.5-5.1); Sodium 135 mEq/L (136-145); Total Protein 6.4 g/dL (6.4-8.9); eGFR For Non-African Americans > 60 (> 60)
[2018-06-25] MEDS: Fluticasone Propionate Nasal 50 MCG/SPRAY BOTTLE NS SCH (07:56)
[2018-06-25] MEDS: Isosorbide MONOnitrate (24 HR) 30 MG TAB.ER.24H PO SCH (07:56)
[2018-06-25] MEDS: Venlafaxine XR (24 HR) 75 MG CAP.ER.24H PO SCH (07:57)
[2018-06-25] MEDS: Gabapentin 400 MG CAPSULE PO SCH ×3 (07:57→21:40)
[2018-06-25] MEDS: amLODIPine 5 MG TABLET PO SCH (07:57)
[2018-06-25] MEDS: Aspirin 81 MG TAB.CHEW PO SCH (07:58)
[2018-06-25] MEDS: Nicotine 7 MG PATCH.TD24 TD SCH (07:58)
[2018-06-25] MEDS: *HR* Heparin 5,000 UNIT/ML VIAL SQ SCH (07:58)
[2018-06-25] MEDS: Clotrimazole 1% CRM 15 GM TUBE TP SCH ×2 (07:59→23:19)
[2018-06-25] MEDS: Insulin LISPRO 300 UNITS/3 ML VIAL SQ SCH ×4 (07:59→21:40)
[2018-06-25] MEDS: Insulin DETEMIR 100 UNIT/ML X5UNITS SQ SCH ×2 (08:05→21:40)
--- NOTE | 2018-06-25 08:31 | Neurology Progress Note ---
Date of Encounter: 06/25/18 Time of Encounter: 08:28 Assessment and Plan (1) Blurry vision, bilateral Current Visit: Yes Status: Acute I believe that this patient's bilateral blurred vision is more than likely due to problems of visual acuity owning to his risk factors of diabetes and hypertension. I find no evidence to suspect amaurosis fugax, there is nothing in the brain to suspect that he is experiencing homonymous hemianopsia is no evidence of an optic nerve or optic chiasm lesion. None of the abnormalities identified on MRI would be expected to cause blurred vision. Carotid Doppler and echocardiogram were negative as well. Long-term care should focus on risk factor modification, and smoking cessation. I would recommend discontinuing the aspirin and starting him on Plavix. We will also recommend statin therapy. Consider ophthalmology evaluation. Otherwise we will reevaluate him at your request. Subjective Principal diagnosis: CVA, DKA Interval history: Chart was reviewed, the patient was seen and examined. Patient sitting up in bed awake and alert in no acute distress. He continues to experience blurred vision. He specifically denies diplopia. Simply states that "everything appears blurred." He denies anything equivalent to amaurosis fugax. He is also concerned about occipital nuchal pain. States however that this is been present prior to admission. He has no nuchal rigidity. The patient describes a seems to be more musculoskeletal, however he does complain of paresthesias in the fingertips bilaterally. MRI scan of the brain reveals a few punctate infarcts, one in the flores, the other in the deep white matter of the left centrum semiovale ovale. Neither of these would cause problems with blurred vision or visual acuity. I believe that these are likely subacute infarcts involving the small vessels likely due to his risk factors of hypertension and diabetes. I did not believe that his vision difficulty is due to an nervous system problem. Seems more likely due to intrinsic problems involving the eyes involving visual acuity. Certainly diabetes and hypertension may cause retinal problems. Objective - Constitutional Vitals: Temp Pulse Resp BP Pulse Ox 98.0 F 74 16 179/110 98 06/25/18 07:39 06/25/18 07:41 06/25/18 07:39 06/25/18 07:39 06/25/18 07:39 - Neurological Exam Motor Examination: Present: full strength in all major muscle groups Motor examination - right side: 5/5: deltoids, biceps, triceps, wrist flexion, wrist extension, band cutter, hip flexors, tibialis Anterior, quadriceps, toe extension (EHL), plantarflexion Motor examination - left side: 02/08: deltoids, biceps, triceps, wrist flexion, wrist extension, hip flexors, band cutter, quadriceps, tibialis Anterior, toe extension (EHL), plantarflexion Sensation intact: Present: other (Decreased sensation to pinprick in the distal to proximal gradient.) Reflex and gait examination: other (Deep tendon reflexes are diminished throughout. No long tract signs are present.) Mental Status Examination: Present: awake, alert, oriented to person, oriented to place, oriented to time, follows commands appropriately, answers questions appropriately, no agnosia, no aphasia, no aproxia Cranial nerve examination: Present: PERRL, EOMI, visual madrigal intact (Patient has no symptoms of hemianopsia denies any visual field obstruction in either eye. He does have general blurring of both eyes.), corneal reflexes brisk symmetrically, sensory to face intact, mastication intact, no facial asymmetry is present, no dysarthria, hearing is intact symmetrically, soft palate elevates bilaterally upon phonation, gag reflex intact, flexes SCM and trapezius muscles symmetrically with full power, tongue protrudes midline, no atrophy or facial fasiculations present Cerebellar examination: Present: no dysmetria, performs finger to nose and heel to valdez symmetrically without ataxia, no gait ataxia, no truncal ataxia, no difficulty with rapid alternating movements Additional comments: No nuchal rigidity. He does have some neck tenderness posteriorly, this is reproducible with deep palpation. Results - Laboratory Findings CBC and BMP: 06/25/18 03:55 06/25/18 03:55 Abnormal lab findings: Abnormal lab results Plt Count 84 K/mcL (140-400) L 06/25/18 03:55 Platelet Estimate Decreased (Normal) L 06/25/18 03:55 Immature Plt Fraction 8.2 % (1.1-6.1) H 06/25/18 03:55 PT 13.1 Seconds (9.4-12.1) H 06/22/18 20:36 Sodium 135 mEq/L (136-145) L 06/25/18 03:55 Potassium 3.1 mEq/L (3.5-5.1) L 06/25/18 03:55 Glucose 147 mg/dL (70-105) H 06/25/18 03:55 POC Glucose 247 mg/dL (70-99) H 06/24/18 19:44 AST 130 Units/L (13-39) H 06/25/18 03:55 ALT 101 Units/L (7-52) H 06/25/18 03:55 Triglycerides 626 mg/dL (< 150) H 06/23/18 03:07 Cholesterol 217 mg/dL (< 200) H 06/22/18 20:36 HDL Cholesterol 20 mg/dL (40-59) L 06/22/18 20:36 Cholesterol/HDL Ratio 10.9 (0-4.9) H 06/22/18 20:36 Urine Protein 100 mg/dL (Neg-Trace) H 06/23/18 01:25 Urine Glucose (UA) 500 mg/dL (Normal) H 06/23/18 01:25 Urine Ketones Trace mg/dL (Negative) H 06/23/18 01:25 Urine Blood Trace-intact (Negative) H 06/23/18 01:25 Urine Bilirubin Small (Negative) H 06/23/18 01:25 Urine Urobilinogen 4.0 mg/dL (Normal) H 06/23/18 01:25 Urine Yeast Moderate per hpf (None Seen) H 06/23/18 01:25 Consult Discharge Plan - Plan Referrals: Gene Barragan, PHYSICAL EDUCATION SPECIALIST [Primary Care Provider] -
--- NOTE | 2018-06-25 09:34 | Internal Med Progress Note ---
Hospitalist Progress Note - Encounter Date of Encounter: 06/25/18 Time of Encounter: 10:45 - Subjective Interval History: vision remains unchanged, blurry at distance and when reading up close as well. progressive over recent months, has never had eye exam. denies eye pain, flashers, floaters, black curtain coming down over visual field. Denies any cp, palpitations, more, sob with elevated bps. remain on o2 nc. encouraged to increase activity. - Exam Vitals: Temp Pulse Resp BP Pulse Ox 98.0 F 74 16 179/110 98 06/25/18 07:39 06/25/18 07:41 06/25/18 07:39 06/25/18 07:39 06/25/18 07:39 Exam: General: awake, alert, appears stated age HEENT:EOM intact pupils equal, round, moist mucus membranes, clear oropharynx , no pain with rom eyes Cardiovascular:regular rate and rhythm, normal S1 & S2, no rubs, murmurs or gallops appreciated. No JVD. radial pulses 2+, no lower extremity edema Lungs:Normal breath sounds, no wheezes, or crackles. Normal respiratory effort on O2 NC Abdomen:Soft, non-tender, non-distended, + bowel sounds Neurological: AAOx3, CN grossly intact, strength 5/5 throughout and sensation intact to light touch throughout all ext. Skin:Normal color, no rash, no pallor, no jaundice - Assessment and Plan (1) DKA (diabetic ketoacidoses) Current Visit: Yes Status: Resolved Assessment and Plan: Resolved, AG closed, remains Hyperglycemic, improving New Diagnosis of Diabetes Mellitus Patient with a hemoglobin A1c of 12.0 started on Levemir--uptitrating dosing -accu checks and SSI -Diabetes education ordered -will need all supplies and close PCP fu on dc, outpt foot exam, optho exam inpt if able given continued visual changes and neuro recs (2) DM (diabetes mellitus), type 2, uncontrolled Current Visit: Yes Status: Acute Assessment and Plan: Newly diagnosed diabetes mellitus type 2 Hemoglobin A1c level 12.0 Continue Accu-Cheks and low dose SSI Patient will need to start antigylcemic therapy upon discharge and close outpatient management of diabetes Dietary consulted for diabetic diet education gabapentin-cont home dosing for neuropathy treatment/fu as above (3) Obesity (BMI 30-39.9) Current Visit: Yes Status: Chronic Assessment and Plan: BMI 39.7, lifestyle modification Dietitian consulted (4) MEGHAN (obstructive sleep apnea) Current Visit: Yes Status: Chronic Assessment and Plan: Continue CPAP at bedtime (5) Balanitis Current Visit: Yes Status: Acute Assessment and Plan: Uncircumcised patient with 3 days of white discharge beneath foreskin, no paraphimosis Continue Clotrimazole 1% twice daily for 7 days and continue good hygiene (6) AAA (abdominal aortic aneurysm) Current Visit: Yes Status: Chronic Assessment and Plan: Patient reports cramping abdominal pain 04/11/18 abdominal ultrasound revealed 5.2 cm aortic aneurysm, increased in size from 4.7 cm on 09/26/17 On 06/13/18 patient underwent left iliac artery embolization by vascular surgeon, Dr. Jaimes--in preparation for his endovascular aneurysm repair the patient had coiling of the left internal iliac artery. A total of 4 coils were placed into the proximal left internal iliac artery without complication. CTA revealed stable 5.1 cm infrarenal abdominal aortic aneurysm Patient will require future endovascular repair of AAA Continue blood pressure control Continue beta jam for hypertension Continue risk factor modification including tobacco cessation Vasc Surgery following - pt will not be surgical candidate until bs and acute stroke work up is complete and bs better controlled cardiology following--Serial imaging with CT every 6months. B jam and ACEI to control blood pressure. (7) HTN (hypertension) Current Visit: Yes Status: Chronic Assessment and Plan: BPs most recently 140s/90s, elevated above goal at times In setting of AAA but also confirming if acute CVA with MRI acute cvas, at this time cont current regimen, close monitoring -cont norvasc 10 g daily, Lopressor 25 mg BID, imdur 30 mg -will add lisinopril next, cont to monitor bps closely (8) CAD (coronary artery disease) Current Visit: Yes Status: Chronic Assessment and Plan: Diabetic patient with history of three-vessel CABG in September 2014 EKG shows new flipped T weighs in leads V2 and V3 since previous EKG 06/13/18 Serial troponins < 0.03 x2, trend serial troponins Cardiology consulted and rec for possible stress tests/LHC with resolution of dka and stroke work up 06/24 rec medical management of cad/abnormal stress test at this time, start imdur daily, close outpt fu and outp lhc in 3-6 months, seen by Dr Lopez (9) Blurry vision, bilateral Current Visit: Yes Status: Acute Assessment and Plan: Patient reports blurry vision, Most likely 2/2 visual acuity and diabetes/htn as per Neurology (visual change progressive over months per pt, not acute) He does have Acute CVA on MRI, though none of the findings would contribute to visual changes Suspect symptoms most likely secondary to uncontrolled hyperglycemia CT brain revealed small focus of age-indeterminate ischemia in the left caudate head and adjacent internal capsule. No acute hemorrhage. MRI brain: unctate acute infarcts are seen within the right flores as well as the left parietal lobe white matter. There likely is subacute infarcts within the left posterior periventricular white matter. Bilateral carotid ultrasound neg echo pending neg at this time BPs are being treated given his AAA dx neuro checks without noted changes -Neurology following--rec to change asa to plavix, cont statin, risk factor modification, smoking cessation, he requires an optho eval, given this is not an emergency (blurred vision has progressed over months and this is not an acute change) he will see optho outpt (10) GHASSAN (acute kidney injury) Current Visit: Yes Status: Resolved Assessment and Plan: Resolved; continue to monitor (11) Hypertriglyceridemia Current Visit: Yes Status: Acute Assessment and Plan: Triglyceride level 718, Repeat triglyceride 626. CT reveals cholelithiasis without evidence for acute cholecystitis, and findings suggestive of cirrhosis and portal hypertension. statin fu with pcp outpt (12) EKG abnormality Current Visit: Yes Status: Acute Assessment and Plan: Diabetic patient with history of three-vessel CABG in September 2014 EKG shows new flipped T weighs in leads V2 and V3 since previous EKG 06/13/18 Serial troponins < 0.03 x2, trend serial troponins Cardiology consulted and rec for possible stress tests/LHC with resolution of dka and stroke work up 06/24 rec medical management of cad/abnormal stress test at this time, start imdur daily, close outpt fu and outp lhc in 3-6 months, seen by Dr Lopez (13) Tobacco dependence Current Visit: Yes Status: Chronic Assessment and Plan: Tobacco cessation discussed nicotine patch (14) DVT prophylaxis Current Visit: Yes Status: Acute Assessment and Plan: scd (15) Thrombocytopenia Current Visit: Yes Status: Acute Assessment and Plan: stop heparin sq and change to scds, cont to monitor, no active bleeding, plts on check today 84, hgb normal -repeat in am (16) Hypokalemia Current Visit: Yes Status: Acute Assessment and Plan: replete PO, check mag, fu repeat lab later today - Time Spent with Patient Total time spent is greater than 50% in coordination of care (as documented) at patient's floor/unit and/or counseling patient: 25 - 35 minutes Plan of Care Discussed with: patient Internal Medicine: Result - Labs CBC & Chem 7: 06/25/18 03:55 06/25/18 03:55 Labs: Short CBC 06/25/18 Range/Units 03:55 WBC 6.1 (4.3-11.1) K/mcL Hgb 14.1 (12.9-16.9) g/dL Hct 40.1 (37.5-50.1) % Plt Count 84 L (140-400) K/mcL Neutrophils # 3.2 (1.6-8.9) K/mcL BMP 06/24/18 06/25/18 08:46 03:55 Sodium 132 L 135 L Potassium 3.4 L 3.1 L Chloride 96 L 100 Carbon Dioxide 28 27 BUN 17 15 Creatinine 0.91 0.79 Glucose 333 H 147 H Calcium 8.8 8.8 Liver Function 06/25/18 Range/Units 03:55 Total Bilirubin 0.6 (0.3-1.0) mg/dL AST 130 H (13-39) Units/L ALT 101 H (7-52) Units/L Alkaline Phosphatase 81 (34-104) Units/L Albumin 3.5 (3.5-5.7) g/dL - ABG Interpretation ABG results: PT/INR, D-dimer PT 13.1 Seconds (9.4-12.1) H 06/22/18 20:36 - Impressions Impressions Echocardiogram 06/23/18 08:37 Impressions: LVEF 50%. LV systolic function grossly appears low normal. However, the LV subendocardial border is not well visualized in all views. Consider repeat limited study with Definity. Atypical septal motion consistent with post-operative status. Mild left ventricular diastolic dysfunction. Normal right ventricular structure and function. No significant valvular dysfunction. No pulmonary hypertension based on TR gradient obtained. No evidence of PFO with agitated saline contrast. Left Ventricular Wall Motion: Rest Echo Findings All wall segments showed normal motion. Findings: Study Quality * Technically adequate exam. ECG Findings * Normal sinus rhythm. Left Ventricle * LVEF 50%. * Atypical septal motion consistent with post-operative status. * Mild left ventricular diastolic dysfunction. * Normal LV chamber size and wall thickness. Right Ventricle * Normal right ventricular structure and function. Left Atrium * Mildly dilated left atrium. Right Atrium * Normal right atrial size. Mitral Valve * Normal mitral valve structure. * No mitral stenosis. * No mitral regurgitation. Aortic Valve * No aortic regurgitation. * Aortic valve not well visualized. * No aortic stenosis. Tricuspid Valve * Tricuspid valve not well visualized. * Trace tricuspid regurgitation. Pulmonic Valve * Pulmonic valve is not well visualized. * No pulmonic stenosis. * No pulmonic regurgitation. Pulmonary Artery * Pulmonary artery not well visualized. Aorta * Normally sized aortic root. Pericardium * There is no pericardial effusion present. Interatrial Septum * No evidence of PFO by color Doppler. * No evidence of PFO with agitated saline contrast. IVC * The IVC is not well evaluated. Brain MRI 06/24/18 22:49 IMPRESSION: 1. Punctate acute infarcts are seen within the right flores as well as the left parietal lobe white matter. 2. There likely is subacute infarcts within the left posterior periventricular white matter. 3. There is no mass effect or midline shift. 4. Mild global parenchymal volume loss. 5. Right mastoid effusion. These results were sent to the [facility] ([facility] on 06/24/2018 at 12:25 pm to be communicated to the referring/covering health care provider/office. D/ / Yunier Alston MD / Yunier Alston MD Interpreting Provider: Yunier Alston MD Consult Discharge Plan - Plan Referrals: Gene Barragan, ACTUARIAL CLERK [Primary Care Provider] - (1) DKA (diabetic ketoacidoses) Qualifiers: Diabetes mellitus type: type 2 Diabetes mellitus complication detail: without coma Qualified Code(s): E11.10 - Type 2 diabetes mellitus with ketoacidosis without coma (2) DM (diabetes mellitus), type 2, uncontrolled Qualifiers: Glycemic state: with hyperglycemia Qualified Code(s): E11.65 - Type 2 diabetes mellitus with hyperglycemia (6) AAA (abdominal aortic aneurysm) Qualifiers: Presence of rupture: without rupture Qualified Code(s): I71.4 - Abdominal aortic aneurysm, without rupture (7) HTN (hypertension) Qualifiers: Hypertension type: essential hypertension Qualified Code(s): I10 - Essential (primary) hypertension (8) CAD (coronary artery disease) Qualifiers: Coronary Disease-Associated Artery/Lesion type: bypass graft [place] vs. transplanted heart: [place] heart Associated angina: without angina Qualified Code(s): I25.810 - Atherosclerosis of coronary artery bypass graft(s) without angina pectoris
[2018-06-25] MEDS: Acetaminophen 325 MG TABLET PO PRN (18:09)
--- NOTE | 2018-06-25 21:39 | Vascular/Endovas Progress Note ---
Date of Encounter: 06/25/18 Time of Encounter: 18:00 - Assessment and plan (1) DM (diabetes mellitus), type 2, uncontrolled Current Visit: Yes Status: Acute Recent diagnosis of diabetes. This is under management at this time. The patient 's aware that he will require further evaluation and treatment for his diabetes before any surgical procedure can be performed. In addition the patient is to have a future outpatient cardiac catheterization but this is being temporarily postponed to allow metabolic stabilization. Qualifiers: Glycemic state: with hyperglycemia Qualified Code(s): E11.65 - Type 2 diabetes mellitus with hyperglycemia (2) Obesity (BMI 30-39.9) Current Visit: Yes Status: Chronic Patient has chronic history of obesity. (3) AAA (abdominal aortic aneurysm) Current Visit: Yes Status: Chronic Patient's abdominal aortic aneurysm remains asymptomatic. As stated elsewhere surgery for this aneurysm is on hold. The patient needs to complete his metabolic stabilization for his diabetes, neurology workup for the acute stroke , and cardiology evaluation and catheterization for further evaluation of his cardiac status. Once these had been complete the patient was requested to return to the vascular surgery clinic for a recheck but at this time there is no scheduled surgical date. Qualifiers: Presence of rupture: without rupture Qualified Code(s): I71.4 - Abdominal aortic aneurysm, without rupture (4) HTN (hypertension) Current Visit: Yes Status: Chronic Patient has a history of chronic hypertension that is poorly controlled. Qualifiers: Hypertension type: essential hypertension Qualified Code(s): I10 - Essential (primary) hypertension Vital Signs, Last 4 Hours Temp Pulse Resp BP Pulse Ox 06/25/18 19:47 97.5 F L 63 15 128/76 98 - Physical Examination General: Present: Conversant, No Apparent Distress HEENT: Present: Atraumatic Neuro: Present: Alert and responsive, No focal deficits noted, Cranial nerves grossly intact Abdomen: Present: Soft, Non-tender Skin: Present: No rashes noted on visualized skin Results 06/25/18 03:55 06/25/18 14:54 Lab Results, Last 24 hours 06/25/18 06/25/18 06/25/18 03:55 03:55 14:54 WBC 6.1 Hgb 14.1 Hct 40.1 Plt Count 84 L Sodium 135 L Potassium 3.1 L 3.7 Chloride 100 Carbon Dioxide 27 BUN 15 Creatinine 0.79 Glucose 147 H Calcium 8.8 Total Bilirubin 0.6 AST 130 H ALT 101 H Alkaline Phosphatase 81 Consult Discharge Plan - Plan Referrals: Gene Barragan CNP [Primary Care Provider] -
[2018-06-26 03:33] VITALS: BP 161/96
[2018-06-26 05:06] LABS: Basophils % 0.3 %; Eosinophils # 0.1 K/mcL (0.0-0.6); Hematocrit 39.3 % (37.5-50.1); Hemoglobin 13.8 g/dL (12.9-16.9); Immature Granulocytes % 0.3 % (0-4); Immature Platelets 7.4 % (1.1-6.1); Lymphocytes # 1.8 K/mcL (0.6-4.6); Lymphocytes % 30.6 %; Mean Corpuscular HGB Conc 35.1 g/dL (31.6-35.5); Mean Corpuscular Hemoglobin 32.5 pg (28.0-33.3); Mean Corpuscular Volume 92.7 fL (83.0-100.0); Mean Platelet Volume 10.9 fL (9.4-12.4); Monocytes # 0.6 K/mcL (0.0-1.3); Monocytes % 9.9 %; Red Blood Count 4.24 M/mcL (4.19-5.50); Red Cell Distribution Width 12.5 % (11.5-14.5); Segmented Neutrophils % 57.9 %
[2018-06-26 05:07] LABS: Neutrophils # 3.5 K/mcL (1.6-8.9); Platelet Count 90 K/mcL (140-400)
[2018-06-26 05:25] LABS: BUN/Creatinine Ratio 17 (6-26); Blood Urea Nitrogen 12 mg/dL (6-20); Carbon Dioxide 25 mEq/L (23-29); Chloride 102 mEq/L (98-107); Glucose 231 mg/dL (70-105); Osmolality,Calculated 285 (280-300); Potassium 3.8 mEq/L (3.5-5.1); Sodium 134 mEq/L (136-145); eGFR For Non-African Americans > 60 (> 60)
[2018-06-26] MEDS: amLODIPine 5 MG TABLET PO SCH (08:09)
[2018-06-26] MEDS: Isosorbide MONOnitrate (24 HR) 30 MG TAB.ER.24H PO SCH (08:10)
[2018-06-26] MEDS: Venlafaxine XR (24 HR) 75 MG CAP.ER.24H PO SCH (08:10)
[2018-06-26] MEDS: Gabapentin 400 MG CAPSULE PO SCH (08:10)
[2018-06-26] MEDS: Insulin LISPRO 300 UNITS/3 ML VIAL SQ SCH ×2 (08:11→12:08)
[2018-06-26] MEDS: Insulin DETEMIR 100 UNIT/ML X5UNITS SQ SCH (08:12)
[2018-06-26] MEDS: Nicotine 7 MG PATCH.TD24 TD SCH (08:19)
[2018-06-26] MEDS: Fluticasone Propionate Nasal 50 MCG/SPRAY BOTTLE NS SCH (09:48)
[2018-06-26] MEDS: Clotrimazole 1% CRM 15 GM TUBE TP SCH (09:50)
--- NOTE | 2018-06-26 10:04 | Discharge Summary ---
- NOTES TO OUTPATIENT PROVIDER Notes to Outpatient Provider: New diagnosis diabetes mellitus, presented in DKA , on levemir BID at dc. Needs referral for outpt annual ophtho and podiatry exams. New diagnosis acute CVA, no residual deficits, seen by neuro; on plavix + statin and requires neuro outpt fu. Known CAD that requires LHC, couldn't do inpt due to acute CVA and DKA, cards will see him outpt, plan for LHC. Once cleared by cards, needs to see Dr Clarke of vasc surg to schedule AAA repear. Requires bp control in meantime and q [address] scan in meantime. Incidental finding on ct scan cirhosis and portal htn that needs further work up and management outpatient. He has thrombocytopenia, which may be related to liver cirrhosis- plts in 90s on dc, no active bleeding throughout admit and hgb stable - please check cbc withiin 5 days Date of Encounter: 06/26/18 Time of Encounter: 09:20 - Discharge Diagnosis (1) DKA (diabetic ketoacidoses) Priority: Primary Status: Resolved Assessment and Plan: Resolved, AG closed, hyperglycemia improved New Diagnosis of Diabetes Mellitus Patient with a hemoglobin A1c of 12.0 started on Levemir--uptitratied dose this admission, bs now stable and variable between 140s to low 200s on dc -dc on levemir 30 units bid -accu checks and SSI while inpt -Diabetes education was provided on numerous occasions throughout admit, while in ice, prior to dc by nursing with present and prior to dc by myself as well rxs for all supplies and close PCP fu on dc scheduled prior to dc -PCP can arrange outpt annual foot exam, optho exam -pt encouraged to closely monitor bs while awaiting pcp fu with tidachs checks and instructions given to him about what to do with abnormal/unacceptable numbers including contacting pcp Qualifiers: Diabetes mellitus type: type 2 Diabetes mellitus complication detail: without coma Qualified Code(s): E11.10 - Type 2 diabetes mellitus with ketoacidosis without coma (2) DM (diabetes mellitus), type 2, uncontrolled Priority: Primary Status: Acute Assessment and Plan: Newly diagnosed diabetes mellitus type 2 Hemoglobin A1c level 12.0 Continue Accu-Cheks and low dose SSI Patient will need to start antigylcemic therapy upon discharge and close outpatient management of diabetes Dietary consulted for diabetic diet education gabapentin-cont home dosing for neuropathy treatment/fu as above Qualifiers: Glycemic state: with hyperglycemia Qualified Code(s): E11.65 - Type 2 diabetes mellitus with hyperglycemia (3) Obesity (BMI 30-39.9) Priority: Secondary Status: Chronic Assessment and Plan: BMI 39.7, lifestyle modification Dietitian consulted (4) MEGHAN (obstructive sleep apnea) Priority: Secondary Status: Chronic Assessment and Plan: Continue CPAP at bedtime (5) Balanitis Priority: Secondary Status: Acute Assessment and Plan: Uncircumcised patient with 3 days of white discharge beneath foreskin, no paraphimosis Continue Clotrimazole 1% twice daily for 7 days total and continue good hygiene (6) AAA (abdominal aortic aneurysm) Priority: Secondary Status: Chronic Assessment and Plan: 04/11/18 abdominal ultrasound revealed 5.2 cm aortic aneurysm, increased in size from 4.7 cm on 09/26/17 On 06/13/18 patient underwent left iliac artery embolization by vascular surgeon, Dr. Jaimes--in preparation for his endovascular aneurysm repair the patient had coiling of the left internal iliac artery. A total of 4 coils were placed into the proximal left internal iliac artery without complication. CTA revealed stable 5.1 cm infrarenal abdominal aortic aneurysm Patient will require future endovascular repair of AAA Continue blood pressure control Continue risk factor modification including tobacco cessation Vasc Surgery following - surgery for this aneurysm is on hold. The patient needs to complete his metabolic stabilization for his diabetes, neurology f/u for the acute stroke, and cardiology outpt re evaluation and catheterization for further evaluation of his cardiac status. Once these had been complete the patient was requested to return to the vascular surgery clinic for a recheck with Dr Clarke--pt can be scheduled for this appt once he has been cleared by cards outpt cardiology following--Serial imaging with CT every 6months. B jam and ACEI to control blood pressure. fu appt scheduled for cards fu prior to dc Qualifiers: Presence of rupture: without rupture Qualified Code(s): I71.4 - Abdominal aortic aneurysm, without rupture (7) HTN (hypertension) Priority: Secondary Status: Chronic Assessment and Plan: BPs variable but have been largely 130-140/70-90s after morning med administrations in last two days consistently In setting of AAA but also acute CVA with MRI acute cvas, bps at goal on dc and cont current regimen -cont norvasc 10 g daily, Lopressor 25 mg BID, imdur 30 mg -he is scheduled to fu with cards and pcp Qualifiers: Hypertension type: essential hypertension Qualified Code(s): I10 - Essential (primary) hypertension (8) CAD (coronary artery disease) Priority: Secondary Status: Chronic Assessment and Plan: Diabetic patient with history of three-vessel CABG in September 2014 EKG shows new flipped T weighs in leads V2 and V3 since previous EKG 06/13/18 Serial troponins < 0.03 Cardiology consulted and rec for outpt fu and then outpt LHC, could not be done inpt in setting of DKA and acute cva rec medical management of cad/abnormal stress test at this time, start imdur daily, close outpt fu and outp lhc seen by Dr Lopez -once cleared by cards outpt, then vasc surg may precede with AAA repair Qualifiers: Coronary Disease-Associated Artery/Lesion type: bypass graft [place] vs. transplanted heart: [place] heart Associated angina: without angina Qualified Code(s): I25.810 - Atherosclerosis of coronary artery bypass graft(s) without angina pectoris (9) Blurry vision, bilateral Priority: Secondary Status: Chronic Assessment and Plan: Patient reports blurry vision, Most likely 2/2 visual acuity and diabetes/htn as per Neurology (visual change progressive over months per pt, not acute) He does have Acute CVA on MRI, though none of the findings would contribute to visual changes Suspect symptoms most likely secondary to uncontrolled hyperglycemia CT brain revealed small focus of age-indeterminate ischemia in the left caudate head and adjacent internal capsule. No acute hemorrhage. MRI brain: unctate acute infarcts are seen within the right flores as well as the left parietal lobe white matter. There likely is subacute infarcts within the left posterior periventricular white matter. Bilateral carotid ultrasound neg echo neg at this time BPs are being treated given his AAA dx neuro checks without noted changes -Neurology following--rec to change asa to plavix, cont statin, risk factor modification, smoking cessation, he requires an optho eval, given this is not an emergency (blurred vision has progressed over months and this is not an acute change) he will see optho outpt - has already obtained voucher in the community for free exam and is scheduling appointment -pt instructed he should not drive with his chronically blurry vision until he is re evaluated by pcp -outpt Neurology follow up with dr Almendarez (10) GHASSAN (acute kidney injury) Priority: Secondary Status: Resolved Assessment and Plan: Resolved; (11) Hypertriglyceridemia Priority: Secondary Status: Chronic Assessment and Plan: Triglyceride level 718, Repeat triglyceride 626. CT reveals cholelithiasis without evidence for acute cholecystitis, and findings suggestive of cirrhosis and portal hypertension. statin fu with pcp outpt for further work up and treatment of TGs and incidental liver findings which has been communicated in PCP follow up recommendations (12) EKG abnormality Priority: Secondary Status: Acute Assessment and Plan: Diabetic patient with history of three-vessel CABG in September 2014 EKG shows new flipped T weighs in leads V2 and V3 since previous EKG 06/13/18 Serial troponins < 0.03 x2, trend serial troponins Cardiology consulted and rec for possible stress tests/LHC with resolution of dka and stroke work up 06/24 rec medical management of cad/abnormal stress test at this time, start imdur daily, close outpt fu and outp lhc in 3-6 months, seen by Dr Lopez (13) Tobacco dependence Priority: Secondary Status: Chronic Assessment and Plan: Tobacco cessation discussed nicotine patch and on dc rx (14) DVT prophylaxis Priority: Secondary Status: Acute Assessment and Plan: scd (15) Thrombocytopenia Priority: Secondary Status: Acute Assessment and Plan: stopped heparin sq and changed to scds, cont to monitor and slow uptrending ( was 84, up to 90) no active bleeding this admission, fu with pcp within 5 days for re check (16) Hypokalemia Priority: Secondary Status: Resolved Assessment and Plan: resolved with oral repletion Hospital course: Mr. Harry is a 47 year old male with a complex medical history who presented with DKA and a new dx of diabetes mellitus with a1c as above. he was treated in ICU, stabilized with insulin treatment. He is currently taking levemir bid and has received extensive education, with his present regarding diabetes and medication use. He additionally has a known cad and AAA history. CArdiology and vasc surg followed him here as well. he will fu with them for LHC and AAA repair as outpt per their recs. He reported two months of worsening blurry vision. He was evaluated by Neurology, and was found on MRI to have acute cvas noted in detail above, however, not in locations that would affect vision. It is highly likely vision changes over recent months are related to uncontrolled dm and htn. Neuro will fu outpt and he requires ophtho eval as outpt. He had incidental finding cirrhosis of the liver on CT a/p that was not worked up this admission given requirement to stabilize other acute issues, however, this finding is documented for PCP follow up and work up outpt. He was dc to home in stable condition with outpt appt follow up to be scheduled by staff. Discharge discussed with: patient - Time Spent with Patient Total time spent providing and/or coordinating discharge services: Greater than 30 minutes - Discharge Medications Prescriptions: Clopidogrel [Plavix] 75 mg PO DAILY 30 Days #30 tablet Clotrimazole 1% CRM [Lotrimin 1%] 1 appl TP BID 2 Days #1 tube Insulin DETEMIR [Levemir] 30 unit SQ BID 30 Days #20 ml Isosorbide MONOnitrate (24 HR) [Imdur] 30 mg PO DAILY 30 Days #30 tab.er.24h Nicotine Patch [Nicoderm] 7 mg TD DAILY 30 Days #30 patch.td24 Home Medications: Amlodipine Besylate 10 mg PO DAILY 05/21/17 [History] Fluticasone Propionate Nasal [Flonase] 50 mcg NS DAILY 05/21/17 [History] Omeprazole [PriLOSEC] 20 mg PO DAILY 05/21/17 [History] Gabapentin [Neurontin] 800 mg PO TID 06/13/18 [History] Atorvastatin [Lipitor] 40 mg PO HS 06/22/18 [History] Metoprolol [Lopressor] 25 mg PO BID 06/23/18 [History] Venlafaxine XR (24 HR) [Effexor XR] 75 mg PO DAILY 06/23/18 [History] Clopidogrel [Plavix] 75 mg PO DAILY 30 Days #30 tablet 06/26/18 [Rx] Clotrimazole 1% CRM [Lotrimin 1%] 1 appl TP BID 2 Days #1 tube 06/26/18 [Rx] Insulin DETEMIR [Levemir] 30 unit SQ BID 30 Days #20 ml 06/26/18 [Rx] Isosorbide MONOnitrate (24 HR) [Imdur] 30 mg PO DAILY 30 Days #30 tab.er.24h [Rx] Nicotine Patch [Nicoderm] 7 mg TD DAILY 30 Days #30 patch.td24 06/26/18 [Rx] Allergies/Adverse Reactions: 3 Allergy/AdvReac Type Severity Reaction Status Date / Time lisinopril Allergy Severe Swelling Verified 05/21/17 16:15 of Lip/Tongue/Throat codeine Allergy Intermediate Difficulty Verified 05/21/17 16:15 Breathing Date of admission: 06/22/18 23:05 Primary care physician: Gene Barragan CNP Consults: 06/22/18 20:49 Consult to Diabetes Education [CONS] Routine Comment: New onset DM 2 Reason for Consult: New onset DM 2 Consult to Nutrition [CONS] Routine Comment: New onset DM 2 Consulting Provider: NUTRITION Reason for Dietary Consult: Diet Education Consult to Plate Cutter [CONS] Routine Reason for SW Consult: New onset DM 2 06/22/18 22:37 Consult to Cardiology [CONS] Routine Comment: Consulting Provider: Cardiology [place] Reason for Consult: Flipped T waves, Epigastric pain, DM patient status post three-vessel CABG Time Notified: 21:25 Call Completed: Yes 06/23/18 10:46 Consult to Vascular Surgery [CONS] Routine Consulting Provider: Vascular Surgery [facility] Reason for Consult: pt is esatblished pt, Dr. jorge to complete call Call Completed: No 06/24/18 07:35 Consult to Neurology [CONS] Routine Consulting Provider: [facility] Reason for Consult: visual changes, possible stroke, ct w age indeterminant stroke, mri pending Call Completed: Yes 06/24/18 11:50 Consult to Diabetes Education [CONS] Routine Comment: Reason for Consult: new DM dx 06/26/18 09:51 Consult to Occupational Therapy [CONS] Routine Comment: Evaluate, develop and implement POC Reason for Consult: CVA protocol Does patient have active BEDREST order?: No Is patient medically & hemodynamically stable?: Yes Consult to Physical Therapy [CONS] Routine Comment: Evaluate, develop and implement POC Reason for Consult: CVA protocol Does patient have active BEDREST order?: No Is patient medically & hemodynamically stable?: Yes Discharging clinician: Eli Parker - Constitutional Vitals: Temp Pulse Resp BP Pulse Ox 97.9 F 64 16 161/96 98 06/26/18 03:32 06/26/18 03:32 06/26/18 03:32 06/26/18 03:32 06/26/18 03:32 General appearance: Present: cooperative, mild distress, pleasant, obese Exam: General: awake, alert, appears stated age HEENT:EOM intact pupils equal, round, moist mucus membranes, clear oropharynx Cardiovascular:regular rate and rhythm, normal S1 & S2, no rubs, murmurs or gallops appreciated. No JVD. radial pulses 2+, no lower extremity edema Lungs:Normal breath sounds, no wheezes, or crackles. Normal respiratory effort on room air Abdomen:Soft, non-tender, non-distended, + bowel sounds, no HSM appreciated Neurological: AAOx3, CN grossly intact, strength 5/5 throughout and sensation intact to light touch throughout all ext. Skin:Normal color, no rash, no pallor, no jaundice - Patient Status Disposition: Home, Self-Care Condition: Good Functional capacity at discharge: independent ambulation Overall status at discharge: patient is back to baseline - Discharge Instructions Follow Up With: Gene Barragan CNP [Primary Care Provider] - Alfredo Almendarez DO [Partnered Physician] - Clay Lopez MD [Non-Partnered Physician] - Additional Instructions: You require follow up with Dr Clarke of Vasc Surg after cards preforms your heart cath, so that AAA repair can be scheduled - Diet and Activity Diet: diabetic diet, low fat, low cholesterol, low salt diet
== END 2018-06-26 15:57 | disposition home or self-care (01) | DRG 637 ==
LOC: ICNU → SUATTDRO 23:05 → 3ANU 06-25 17:54
PROVIDERS: ADMIT Student in an Organized Health Care Education/Training Program; ATTEND Internal Medicine

== ENCOUNTER 2018-07-22 06:08 | Inpatient (IN) ==
[2018-07-22] MEDS ORDERED: CeFAZolin Syr 3,000MG/30 ML 3,000 MG/30 ML SYRINGE IVPB ONE (06:38)
[2018-07-22] MEDS ORDERED: Albuterol 2.5 MG/3 ML NEBULIZER IH ONE (06:38)
[2018-07-22] MEDS ORDERED: Ringers Solution, Lactated 1,000 ML IVC SCH (06:45)
[2018-07-22] MEDS ORDERED: Heparin 1,000 UNITS/500 mL 500 ML ONE (07:03)
[2018-07-22] MEDS ORDERED: *HR* Labetalol 100 MG/20 ML MDV ONE (07:04)
[2018-07-22] MEDS ORDERED: Lidocaine -MPF 2% 2 ML VIAL ONE ×2 (07:06→07:07)
[2018-07-22] MEDS ORDERED: *HR* Midazolam HCl 2 MG/2 ML VIAL ONE (07:06)
[2018-07-22] MEDS ORDERED: *HR* Rocuronium Bromide 50 MG/5 ML VIAL ONE ×2 (07:07→09:58)
[2018-07-22] MEDS ORDERED: Lidocaine -MPF 4% 5 ML AMPUL ONE (07:07)
[2018-07-22] MEDS ORDERED: Ondansetron 4 MG/2 ML VIAL ONE (07:07)
[2018-07-22] MEDS ORDERED: *HR* Propofol 200 MG/20 ML VIAL IVP ONE (07:07)
[2018-07-22] MEDS ORDERED: Dexamethasone 4 MG/ML VIAL ONE (07:07)
[2018-07-22] MEDS ORDERED: *HR* FentaNYL (PF) 100 MCG/2 ML VIAL ONE (07:07)
[2018-07-22] MEDS ORDERED: Famotidine 20 MG/2 ML VIAL IVP ONE (07:08)
[2018-07-22] MEDS ORDERED: Acetaminophen IV 1,000 MG/100 ML INFUS..BTL IVPB ONE (07:08)
--- NOTE | 2018-07-22 07:11 | Anesthesia Evaluation PreOp ---
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: TIA, Other (Anxiety/Depression,) Other Medical History: Hepatic (fatty liver dz), Diabetes Type II (Uncontrolled) , GERD Anesthesia History: No Prior Anesthetic Complications, Past Anesthesia (Hernia repair, R-arm surgery , CABG 2013, Cystoscopy, Aortic valve coil 06/13/2018) Alcohol Use: none Drug use: none Medications and Allergies Amlodipine Besylate 10 mg PO DAILY 05/21/17 [History] Fluticasone Propionate Nasal [Flonase] 50 mcg NS DAILY 05/21/17 [History] Omeprazole [PriLOSEC] 20 mg PO DAILY 05/21/17 [History] Gabapentin [Neurontin] 800 mg PO TID 06/13/18 [History] Atorvastatin [Lipitor] 40 mg PO HS 06/22/18 [History] Metoprolol [Lopressor] 25 mg PO BID 06/23/18 [History] Venlafaxine XR (24 HR) [Effexor XR] 75 mg PO DAILY 06/23/18 [History] Clopidogrel [Plavix] 75 mg PO DAILY 30 Days #30 tablet 06/26/18 [Rx] Clotrimazole 1% CRM [Lotrimin 1%] 1 appl TP BID 2 Days #1 tube 06/26/18 [Rx] Insulin DETEMIR [Levemir] 30 unit SQ BID 30 Days #20 ml 06/26/18 [Rx] Isosorbide MONOnitrate (24 HR) [Imdur] 30 mg PO DAILY 30 Days #30 tab.er.24h [Rx] Nicotine Patch [Nicoderm] 7 mg TD DAILY 30 Days #30 patch.td24 06/26/18 [Rx] Losartan/Hydrochlorothiazide [Hyzaar 100-25 Tablet] 1 each PO DAILY 07/15/18 [ History] 3 Allergy/AdvReac Type Severity Reaction Status Date / Time lisinopril Allergy Severe Swelling Verified 05/21/17 16:15 of Lip/Tongue/Throat codeine Allergy Intermediate Difficulty Verified 05/21/17 16:15 Breathing - Meds/Allergy Pre-op Review Medications Reviewed: Yes Allergies Reviewed: Yes Beta Blockers on Current Med List: Yes (metoprolol) If Beta Blockers taken, Date/Time (Last Dose taken): 07/21/2018 @ 2029 Anesthesia Results - Labs Laboratory Tests 06/22/18 06/22/18 06/26/18 13:40 20:36 04:41 WBC Hgb Hct Plt Count PT 13.1 H INR 1.2 APTT 29.0 Sodium 134 L Potassium 3.8 Chloride 102 Carbon Dioxide 25 BUN 12 Creatinine 0.71 Est GFR (Non-Af Amer) > 60 Glucose 231 H Est Mean Plasma Glucose 298 Hemoglobin A1c 12.0 H 07/09/18 14:02 WBC 7.9 Hgb 14.4 Hct 41.2 Plt Count 107 L PT INR APTT Sodium Potassium Chloride Carbon Dioxide BUN Creatinine Est GFR (Non-Af Amer) Glucose Est Mean Plasma Glucose Hemoglobin A1c - Imaging EKG: report reviewed (48bpm - SINUS BRADYCARDIA INTRAVENTRICULAR CONDUCTION DELAY ST DEVIATION AND MODERATE T-WAVE ABNORMALITY, CONSIDER ANTEROLATERAL ISCHEMIA ST DEVIATION AND MODERATE T-WAVE ABNORMALITY, CONSIDER INFERIOR ISCHEMIA Electronically Signed On 06-24-2018 17:33:06 EDT by Chanell Reyes), image reviewed Additional studies: ECHO 06/23/2018 EV/EV echo with saline Impressions: LVEF 50%. LV systolic function grossly appears low normal. However, the LV subendocardial border is not well visualized in all views. Consider repeat limited study with Definity. Atypical septal motion consistent with post-operative status. Mild left ventricular diastolic dysfunction. Normal right ventricular structure and function. No significant valvular dysfunction. No pulmonary hypertension based on TR gradient obtained. No evidence of PFO with agitated saline contrast. Left Ventricular Wall Motion: Rest Echo Findings All wall segments showed normal motion. Anesthesia Exam O2 Sat Height 1.83 m Height 1.83 m Weight 126.099 kg Weight 126.099 kg O2 Sat by Pulse Oximetry 97 O2 Sat by Pulse Oximetry 97 Vital Signs Temp Pulse Resp BP Pulse Ox 98.2 F 83 18 145/91 97 07/22/18 06:25 07/22/18 06:25 07/22/18 06:25 07/22/18 06:25 07/22/18 06:25 - HEENT Pupil (Motor): Pupils equal, EOMI Mallampati: III Teeth: Edentulous Oral Opening: Greater than 3 - EXTRACTOR OPERATOR SOLVENT PROCESS LOC: Oriented EXTRACTOR OPERATOR SOLVENT PROCESS Motor: Normal RUE, Normal LUE, Normal RLE, Normal LLE, Normal Face EXTRACTOR OPERATOR SOLVENT PROCESS Sensory: Normal: RUE, LUE, RLE, LLE, Face - Cardiac Rhythm: Regular Murmur: None - Pulmonary Breath Sounds: bilateral Clear Respiratory Effort: Symmetrical Anesthesia Assess/Plan ASA Score: 4 (CAD, AAA, COPD, HTN, Chol, Uncontrolled DM, Obesity) Modified Emma Scale for Level of Consciousness: Cooperative, oriented, and tranquil Anesthetic Plan: General Monitoring Plan: Standard Monitors, A-Line Recovery Plan: PACU Anes Supervising Prov Stmt: Pt seen/evaluated, R&b discussed, questions answered and consent obtained. Chacha Lewis MD
[2018-07-22] MEDS ORDERED: Heparin 1,000 UNITS/500 mL 2,000 ML ONE (07:12)
[2018-07-22] MEDS ORDERED: Isovue-300 50 ML VIAL IVP ONE (07:13)
[2018-07-22] MEDS ORDERED: Isovue-300 150 ML INFUS..BTL IV ONE (07:18)
[2018-07-22] MEDS ORDERED: *HR* Remifentanil 2 MG VIAL IVP ONE (07:18)
--- NOTE | 2018-07-22 07:22 | History & Physical Report ---
Date of Encounter: 07/22/18 Time of Encounter: 07:22 24 Hour HP Update - Instructions Instructions: If the History and Physical is less than 30 days old and was completed prior to A.M. admission and or procedure and has NOT been updated on calendar day of procedure please complete this update prior to performing procedure. - Update Patient reports changes in Medical Condition: No Changes in examination, assessment, or condition: No Changes in Medication: No Preop tests/diagnostics Reviewed: Yes Surgery Remains Indicated: Yes Consent for Planned Operative Procedure(s) Verified: Yes - Pre-Operative Checklist Preoperative Checklist Indicated: Yes Prophylactic Antibiotic Ordered: Yes Home Medications Include Beta Aspen: Yes Beta Aspen Taken Today (Day of Surgery): Yes Beta Aspen Taken Yesterday (Day Prior to Surgery): Yes Is VTE Prophylaxis Indicated?: Yes
[2018-07-22] MEDS ORDERED: EPHEDrine 50 MG/ML VIAL ONE (07:28)
[2018-07-22] MEDS ORDERED: Water for inj. (sterile) 10 ML IV ONE (07:28)
[2018-07-22] MEDS ORDERED: ceFAZolin 1,000 MG, Sodium Chloride IRRigation 1,000 ML IR ONE (07:45)
[2018-07-22] MEDS ORDERED: Ondansetron 4 MG/2 ML VIAL IVP ONE (08:44)
[2018-07-22] MEDS ORDERED: *HR* Promethazine 25 MG/ML VIAL IVP PRN ×2 (08:44→21:09)
[2018-07-22] MEDS ORDERED: Dexamethasone 4 MG/ML VIAL IVP ONE (08:44)
[2018-07-22] MEDS ORDERED: *HR* Labetalol 20 MG/4 ML SYRINGE IVP PRN (08:44)
[2018-07-22] MEDS ORDERED: *HR* Heparin 5,000 UNIT/ML VIAL ONE ×2 (09:45→09:48)
[2018-07-22] MEDS ORDERED: Neostigmine Methylsulfate 3 MG/3 ML SYRINGE ONE (10:42)
--- NOTE | 2018-07-22 11:16 | Operative Note ---
Date of procedure: 07/22/18 Pre-op diagnosis: Abdominal aortic aneurysm Post-op diagnosis: same Procedure: Endovascular repair of abdominal aortic aneurysm using Medtronic Endurant 2 system-Main body placed via right side which is a 36 x 14 x 103 mm device. Left limb is 16 x 13 x 1 56 mm limb. The right completion limb is 16 x 20 x 1 24 mm. The limbs are placed and a cross configuration. Bilateral open femoral exposure Nonselective catheterization and aortograms Complications: None Anesthesia: GETA Surgeon: Ismael Clarke Co-Surgeon: Tee Cooper Was there an assistant store manager operations present: No Estimated blood loss (cc): 100 Specimen: None Condition: stable Disposition: PACU Procedure in Detail: History Sher Harry is a 48-year-old white male who has multiple medical problems including an expanding abdominal aortic aneurysm, coronary artery disease and status post open heart bypass grafting, severe hypertension, and diabetes. Patient's father of a ruptured aneurysm. Patient now comes to the operating room for treatment of his abdominal aortic aneurysm. Procedure After informed consent was obtained the patient was taken to the operating room. General endotracheal anesthesia was established under arterial line pressure monitoring. The abdomen groin and thighs were sterilely prepped and draped. A timeout protocol was observed. A 2 team surgical approach was used due to the patient's multiple comorbidities particularly his coronary disease and severe hypertension. This would also reduce blood loss and anesthetic time. Bilateral open femoral exposure was then obtained. Control was obtained with Vesseloops. The right side had marked inflammation due to multiple previous percutaneous procedures. An 18-gauge needle was then used in the femoral arteries were punctured in a retrograde fashion. A guidewire was then inserted and this was followed by an 8-Citizen Of [place] sheath and dilator. The dilator was removed and the sheath was aspirated and flushed. The wires were then positioned into the proximal aspect of the descending aorta. An aortogram was obtained. The patient has 3 left renal arteries. The inferior renal artery would need to be covered by the stent graft in order to obtain an appropriate sealing zone to avoid a type I endoleak. The main body was placed via the right side. The main body was a 36 mm diameter device 103 mm long. This device was placed and then the docking limb was opened. The docking limb was then cannulated from the left side. An Kamila Surendra was performed for length measurement. The left internal iliac artery had been previously coiled about 5 weeks ago. The left limb was a 16 x 13 x 156 mm device. This was then deployed. Attention was directed back to the right side. Final portion of the right limb was then deployed. The top cap was recaptured and then the device was removed. An angiogram was obtained of the right iliac system. Particular attention was paid to preserve the right iliac artery bifurcation. Measurements were then made and then the right limb was selected which was a 16 x 20 x 124 mm device. This was then deployed. A Reliant balloon was then inserted both were left in the right side and the stent graft was gently expanded. With this done the pigtail catheter was reinserted and a completion angiogram was obtained. This demonstrated patency of the main renal arteries bilaterally. The inferior left renal artery was covered by the graft. The middle renal artery was preserved. The right iliac bifurcation was preserved. There were no findings of endovascular leak. With this information the sheath and all other devices were removed from the femoral vessels. The puncture sites were then closed using 6-0 Prolene suture. The vessels were backbled and flushed. Then the final suture placed. Doppler evaluation was made of the vessel following opening in the right abnormalities noted. The wounds were then irrigated area Marcaine was infiltrated bilaterally. The wounds were then closed in layers using absorbable suture. Dry sterile dressings were applied. The patient was extubated in the operating room. He was then transported from the operating room to the recovery room in stable condition.
[2018-07-22] MEDS: *HR* HYDROmorphone (PF) 1 MG/ML SYRINGE IVP PRN ×2 (11:26→11:50)
[2018-07-22] MEDS ORDERED: *HR* Atropine Sulfate 1 MG/ML VIAL ONE (11:37)
--- NOTE | 2018-07-22 11:55 | Anesthesia Evaluation Post Op ---
Date of Encounter: 07/22/18 Time of Encounter: 11:55 - Vital Signs Vital Signs: Vital Signs/O2 Sat/Glucose, Most Recent Temp Pulse Resp BP Pulse Ox 98.2 F 83 18 145/91 97 07/22/18 06:25 07/22/18 06:25 07/22/18 07:02 07/22/18 07:02 07/22/18 07:02 Blood Glucose* 161 - Lungs Lungs: Clear Ascult./Percussion - Airway Airway: Non-obstructed - Cardiovascular Regular Rate, Baseline Rhythm - Mental Status Mental Status: Alert & Oriented, Answers Appropriately - Pain Pain Scale: 0 Pain Scale used: Numeric (1 - 10) - Nausea Vomiting Nausea Vomiting: Not Present - Hydration Hydration: Tolerates oral liquids, Vazquez catheter Notes: 07/22/18 11:55 naac - Discharge PostOp Status: Transfer Patient to floor
--- NOTE | 2018-07-22 11:58 | Anesthesia Procedures ---
Date of Encounter: 07/22/18 Time of Encounter: 07:45 Procedures: Anesthesia - Arterial Line Consent obtained: written consent Time out performed: Yes Sedation: Versed (mg): 2 Supplemental Oxygen via Nasal Cannula (L/min): 3 Local Anesthetic: Lidocaine 1% Size (Gauge): 20 Length (inches): 1 3/4 Technique Used: sterile prep, guide wire technique Post-Procedure: line taped into place, dry sterile dressing placed Patient tolerated procedure: well, no complications Complications: none Site: Radial L Vitals: see anesthesia record Comments: naac
[2018-07-22] MEDS ORDERED: Acetaminophen 325 MG TABLET PO PRN (12:18)
[2018-07-22] MEDS ORDERED: Fluticasone Propionate Nasal 50 MCG/SPRAY BOTTLE NS PRN (12:18)
[2018-07-22] MEDS ORDERED: Ondansetron 4 MG/2 ML VIAL IVP PRN (12:18)
[2018-07-22] MEDS ORDERED: Naloxone 0.4 MG/ML INJ IVP PRN (12:18)
[2018-07-22] MEDS: *HR* OxyCODONE Immed Rel 5 MG TABLET PO PRN ×2 (12:38→20:25)
--- NOTE | 2018-07-22 14:05 | Operative Note ---
Date of procedure: 07/22/18 Pre-op diagnosis: Abdominal aortic aneurysm, left iliac artery aneurysm Post-op diagnosis: same Procedure: 1. Endograft repair of abdominal aortic aneurysm with Medtronic bifurcated modular graft including 2 docking limbs. 2. Right femoral vessel exposure for endograft placement. 3. Left femoral vessel exposure for endograft placement. Complications: None Anesthesia: GETA Surgeon: Tee Cooepr Co-Surgeon: Ismael Clarke Was there an family medicine physician assistant present: No Estimated blood loss (cc): 100 Specimen: None Condition: stable Disposition: PACU Procedure in Detail: Indications: The patient is an 48-year-old male with an abdominal aortic aneurysm and a left common iliac artery aneurysm. The patient is recently undergone a left hypogastric artery coil embolization. His anatomy is appropriate for endograft repair. Repair has been recommended to reduce his risk of rupture. Procedure: The patient was taken to the operating room and placed in supine position on the operating room table. After the induction of general endotracheal anesthesia, she was cleaned and draped in normal sterile fashion. A two surgeon approach was utilized for this procedure in order to minimize anesthetic time and the risks for complications due to the patients comorbid conditions. In addition, a two surgeon approach was used for intraoperative decision making. Oblique incisions were made over both groins sharply. Hemostasis was obtained with electrocautery. Using blunt and sharp and electrocautery dissection, the bilateral common, deep and superficial femoral arteries were dissected circumferentially and surrounded with Vessel loops. At this point, the patient received heparin intravenously and then bilateral femoral punctures with large- bore needles were performed. J wires were advanced into the aorta under fluoroscopic view. Given the anatomy, the main body was selected to be the right side in this patient. The needles were exchanged for bilateral sheaths and a long Pigtail catheter was advanced over the right wire into the aortic arch. The angiogram revealed that the left iliac vessels were appropriate for endograft placement. The wire was removed and an angiogram was then performed via a pigtail catheter for sizing of the graft. The wire was replaced with a stiff wire. The catheter was removed and repositioned in the suprarenal aorta via the left femoral artery. The main body was inserted over the stiff wire with the contralateral limb being in the ipsilateral position. An aortogram was then performed at the level of the renal artery. The graft was positioned just inferior to the renal arteries and the first 2 segments were deployed. Again an aortogram revealed adequate infrarenal placement. The graft was then further opened to the contralateral limb exposed. A final angiogram was performed confirming adequate infrarenal placement. The suprarenal stent was deployed in the usual fashion. The contralateral limb was then selected with a wire using a guiding catheter. Intragraft placement of the wire was confirmed by placing the pigtail and spinning it freely. An oblique view of the left pelvis was performed with contrast to size the left extension limb. The sheath was removed and exchanged for the appropriate limb, which was advanced under fluoroscopic view and positioned. It was then expanded. The introducer and graft sheath were exchanged for a sheath. The risks of the main body was deployed. The top cap was retrieved and the introducer was withdrawn. The introducer was exchanged for a sheath. Oblique view of the right pelvis was then performed to determine the extension limb sizing. The appropriate limb was selected and deployed under fluoroscopic view. The introducer and graft sheath was removed and exchanged for a sheath. A Reliant balloon was then advanced into the graft proximal and distal endpoints as well as overlap were expanded with gentle pressure. A flush completion angiogram revealed no evidence of an endoleak. Further imaging of the right femoral vessels revealed no evidience of stenosis. Tension was applied to the Vessel loops in the groins. The sheaths and wires were then removed. The bilateral arteriotomies were repaired with a running 6-0 Prolene. Antibiotic irrigation was infused into the groin. The bilateral groins incisions were closed with 2-0 Vicryl, 3-0 Vicryl and 4-0 Vicryl. Sterile dressings were applied. The patient was then extubated and taken to the recovery room in stable condition. Main body: 36 x 14 x 103 mm. Right extension limb: 16 x 20 x 124 mm. Left extension limb: 16 x 13 x 156 mm.
[2018-07-22] MEDS: *HR* HYDROcodone/Acet 5/325 mg TABLET PO PRN ×2 (15:12→22:08)
[2018-07-22] MEDS: *HR* Labetalol 20 MG/4 ML SYRINGE IVP PRN ×3 (16:25→23:07)
[2018-07-22] MEDS ORDERED: *HR* FentaNYL (PF) 100 MCG/2 ML VIAL IVP STA (16:39)
[2018-07-22] MEDS: Insulin DETEMIR 100 UNIT/ML X5UNITS SQ SCH (20:28)
[2018-07-22] MEDS ORDERED: Gabapentin 400 MG CAPSULE PO SCH (21:00)
[2018-07-22] MEDS ORDERED: Ketorolac 30 MG/ML VIAL IVP ONE (21:06)
[2018-07-22] MEDS ORDERED: Simethicone 80 MG TAB.CHEW PO PRN (21:08)
[2018-07-22] MEDS ORDERED: *HR* LORazepam 2 MG/ML VIAL IVP PRN (21:09)
[2018-07-22] MEDS ORDERED: *HR* Promethazine 25 MG/ML VIAL ONE (21:13)
[2018-07-23] MEDS: Ketorolac 15 MG/ML VIAL IVP SCH ×3 (01:15→12:09)
[2018-07-23] MEDS: *HR* Labetalol 20 MG/4 ML SYRINGE IVP PRN (01:15)
[2018-07-23 04:45] LABS: Hematocrit 38.3 % (37.5-50.1); Hemoglobin 13.2 g/dL (12.9-16.9); Immature Platelets 4.1 % (1.1-6.1); Mean Corpuscular HGB Conc 34.5 g/dL (31.6-35.5); Mean Corpuscular Hemoglobin 31.8 pg (28.0-33.3); Mean Corpuscular Volume 92.3 fL (83.0-100.0); Mean Platelet Volume 10.4 fL (9.4-12.4); Red Blood Count 4.15 M/mcL (4.19-5.50); Red Cell Distribution Width 12.9 % (11.5-14.5)
[2018-07-23 05:02] LABS: BUN/Creatinine Ratio 20 (6-26); Blood Urea Nitrogen 17 mg/dL (6-20); Calcium 9.2 mg/dL (8.6-10.3); Carbon Dioxide 21 mEq/L (23-29); Chloride 104 mEq/L (98-107); Glucose 140 mg/dL (70-105); Osmolality,Calculated 292 (280-300); Potassium 3.7 mEq/L (3.5-5.1); Sodium 139 mEq/L (136-145); eGFR For Non-African Americans > 60 (> 60)
[2018-07-23] MEDS: Insulin DETEMIR 100 UNIT/ML X5UNITS SQ SCH (07:58)
[2018-07-23] MEDS ORDERED: amLODIPine 5 MG TABLET PO SCH (09:00)
[2018-07-23] MEDS ORDERED: Losartan/HCTZ 50-12.5 TABLET PO SCH (09:00)
[2018-07-23] MEDS ORDERED: Isosorbide MONOnitrate (24 HR) 30 MG TAB.ER.24H PO SCH (09:00)
[2018-07-23] MEDS ORDERED: Venlafaxine XR (24 HR) 75 MG CAP.ER.24H PO SCH (09:00)
[2018-07-23 11:22] VITALS: BP 151/94
--- NOTE | 2018-07-23 13:18 | Discharge Summary ---
Orders not resulted at time of discharge: Pending orders 07/17/18 09:34 Red Blood Cells [BBK] Routine Date of Encounter: 07/23/18 Time of Encounter: 13:15 - Discharge Diagnosis (1) DM (diabetes mellitus), type 2, uncontrolled Priority: Secondary Status: Acute Comments: Patient under treatment Qualifiers: Glycemic state: with hyperglycemia (2) Obesity (BMI 30-39.9) Priority: Secondary Status: Chronic Comments: Chronic obesity (3) AAA (abdominal aortic aneurysm) Priority: Primary Status: Chronic Comments: Abdominal aortic aneurysm that was expanding. Patient was taken to surgery and underwent a successful endovascular repair. Qualifiers: Presence of rupture: without rupture Qualified Code(s): I71.4 - Abdominal aortic aneurysm, without rupture (4) HTN (hypertension) Priority: Secondary Status: Chronic Comments: Long-standing hypertension Qualifiers: Hypertension type: essential hypertension Qualified Code(s): I10 - Essential (primary) hypertension (5) Tobacco dependence Priority: Secondary Status: Chronic Comments: tobacco abuser - Hospital Course Hospital course: Mr. Harry is a 48 year old male With an expanding abdominal aortic aneurysm. He underwent an endovascular repair under general endotracheal anesthesia. The patient had no periprocedural complications. He was felt that for discharge on the afternoon of postoperative day #1. Diet and medications and activities were reviewed with the patient prior to discharge. - Time Spent with Patient Total time spent providing and/or coordinating discharge services: - Discharge Medications Home Medications: Albuterol Sulfate [Ventolin Hfa] 2 puff IH Q4-6H PRN 07/22/18 [History] Amlodipine Besylate 10 mg PO DAILY 07/22/18 [History] Atorvastatin [Lipitor] 40 mg PO HS 07/22/18 [History] Clopidogrel [Plavix] 75 mg PO DAILY 07/22/18 [History] Fluticasone Propionate Nasal [Flonase] 2 spr NS DAILY PRN 07/22/18 [History] Gabapentin [Neurontin] 800 mg PO HS 07/22/18 [History] Insulin DETEMIR [Levemir] 30 unit SQ BID 07/22/18 [History] Isosorbide MONOnitrate (24 HR) [Imdur] 30 mg PO DAILY 07/22/18 [History] Losartan/Hydrochlorothiazide [Losartan-Hctz 50-12.5 mg Tab] 1 tab PO DAILY 07/22 [History] Metoprolol [Lopressor] 25 mg PO BID 07/22/18 [History] Omeprazole [PriLOSEC] 20 mg PO DAILY 07/22/18 [History] Venlafaxine HCl [Venlafaxine HCl ER] 75 mg PO DAILY 07/22/18 [History] Allergies/Adverse Reactions: 3 Allergy/AdvReac Type Severity Reaction Status Date / Time lisinopril Allergy Severe Swelling Verified 07/22/18 07:43 of Lip/Tongue/Throat codeine Allergy Intermediate Rash Verified 07/22/18 07:43 Date of admission: 07/22/18 12:19 Primary care physician: Savita Murry MD Consults: None Procedure(s) Performed: Endovascular repair of abdominal aortic aneurysm Discharging clinician: Ismael Clarke Anticipated date of discharge: 07/23/18 Exam Vital Signs, Last 4 Hours Temp Pulse Resp BP Pulse Ox 07/23/18 11:55 66 07/23/18 11:19 98.0 F 82 18 151/94 96 07/23/18 09:19 159/89 General: Present: Conversant, No Apparent Distress HEENT: Present: Atraumatic Neck: Absent: JVD Cardiac: Present: Reg Rate and Rhythm Neuro: Present: Alert and responsive, No focal deficits noted, Cranial nerves grossly intact Abdomen: Present: Soft, Non-tender. Absent: Masses Vascular: Present: Surgical incisions (Clean and dry). Absent: Edema Skin: Present: No rashes noted on visualized skin - Patient Status Disposition: Home, Self-Care Condition: Good Functional capacity at discharge: independent ambulation Overall status at discharge: patient is progressing back to baseline - Discharge Instructions Follow Up With: Cheyanne Montenegro CNP [Advanced Practice Nurse] - 07/30/18 9:00 am Ismael Clarke MD [Partnered Physician] - 08/11/18 11:45 am (This appointment is in [place]) Additional Instructions: Keep surgical incisions dry for total of 5 days following surgery Use incentive spirometer for 2 weeks at home it 10 times an hour while awake. After 2 weeks discard incentive spirometer. Resume usual home medications. Patient may ambulate inside and outside. Patient may use stairs as tolerated. Patient is not to drive. Patient not to lift more than 10 pounds. No manual labor. - Diet and Activity Activity: increase activity as tolerated Diet: diabetic diet
== END 2018-07-23 15:09 | disposition home or self-care (01) | DRG 269 ==
LOC: SAMDAY 06:08 → 2NNU 12:19
PROVIDERS: ADMIT Surgery Vascular Surgery; ATTEND Surgery Vascular Surgery

== ENCOUNTER 2019-06-09 06:02 | Inpatient (IN) ==
[~2019-06-09 06:02] MED LIST: Bacitracin 50,000 UNIT, Polymyxin B Sulfate 500,000 UNIT, Sodium Chloride IRRigation 1,... IR ONE
[2019-06-09] MEDS ORDERED: Albuterol 2.5 MG/3 ML NEBULIZER IH ONE ×2 (06:21→07:10)
[2019-06-09] MEDS ORDERED: CeFAZolin Syr 3,000MG/30 ML 3,000 MG/30 ML SYRINGE IVPB ONE (06:21)
[2019-06-09] MEDS ORDERED: Ringers Solution, Lactated 1,000 ML IVC SCH (06:30)
--- NOTE | 2019-06-09 07:04 | Anesthesia Evaluation PreOp ---
Date of Encounter: 06/09/19 Time of Encounter: 07:01 - Past History Planned Operation: PLIF L3-S1 Cardiac History: OR, HTN, Hyperlipidemia, Cardiac Surgery (CABG x 3 2013) Pulmonary History: Smoker (1 ppd), COPD, MEGHAN Dx (noncompliant with CPAP) LENS MARKER History: TIA, Other (anxiety, depression) Other Medical History: Hepatic (fatty liver), Diabetes Type II, Other (BMI 37) Anesthesia History: No Prior Anesthetic Complications, Past Anesthesia (endo AAA 07/2018, hernia, R arm, cysto) Alcohol Use: none Drug use: none Medications and Allergies Albuterol Sulfate [Ventolin Hfa] 2 puff IH Q4-6H PRN 07/22/18 [History] Amlodipine Besylate 10 mg PO DAILY 07/22/18 [History] Atorvastatin [Lipitor] 40 mg PO HS 07/22/18 [History] Clopidogrel [Plavix] 75 mg PO DAILY 07/22/18 [History] Fluticasone Propionate Nasal [Flonase] 2 spr NS DAILY PRN 07/22/18 [History] Gabapentin [Neurontin] 800 mg PO HS 07/22/18 [History] Insulin DETEMIR [Levemir] 30 unit SQ BID 07/22/18 [History] Isosorbide MONOnitrate (24 HR) [Imdur] 30 mg PO DAILY 07/22/18 [History] Losartan/Hydrochlorothiazide [Losartan-Hctz 50-12.5 mg Tab] 1 tab PO DAILY 07/22/18 [History] Metoprolol [Lopressor] 25 mg PO BID 07/22/18 [History] Omeprazole [PriLOSEC] 20 mg PO DAILY 07/22/18 [History] Venlafaxine HCl [Venlafaxine HCl ER] 75 mg PO DAILY 07/22/18 [History] Allergy/AdvReac Type Severity Reaction Status Date / Time lisinopril Allergy Severe Swelling Verified 05/13/19 08:58 of Lip/Tongue/Throat codeine Allergy Intermediate Rash Verified 05/13/19 08:58 - Meds/Allergy Pre-op Review Medications Reviewed: Yes Allergies Reviewed: Yes Beta Blockers on Current Med List: Yes (coreg ) If Beta Blockers taken, Date/Time (Last Dose taken): 0500 Anesthesia Results - Labs Laboratory Tests 05/13/19 05/13/19 05/13/19 09:10 09:10 09:10 WBC 8.6 Hgb 13.9 Hct 41.6 Plt Count 131 L PT 12.1 INR 1.1 APTT 31.1 Sodium 137 Potassium 4.0 Chloride 103 Carbon Dioxide 27 BUN 13 Creatinine 1.07 Est GFR (Non-Af Amer) > 60 - Imaging EKG: report reviewed Additional studies: 07/2018 LEFT HEART CATH W/ GRAFTS Indications: Abnormal Test - Stress Pre-operative Evaluation Impressions: There is severe three vessel coronary artery disease. S/P CABG 3 of 3 patent bypass grafts. Normal LV systolic function. EF 55% Recommendations: Optimal medical therapy of patient's disease. Aggressive risk factor modification. LV Ventriculography Ejection Method: LV Gram Ejection Fraction: 55% Wall Motion: VENTURA Anterobasal Normal Anterolateral Mild Hypokinesis Apical: Mild Hypokinesis Inferoapical Normal Inferobasal Akinesis Coronary Dominance: right Lesion Findings/Interventions * Left Main Coronary Artery There is a 40% stenosis in the Distal LMCA. * Left Anterior Descending The Mid and distal LAD fills via patent DUNCAN graft. There is a 99% stenosis in the Ostial/Proximal LAD. There is a 100% stenosis in the Proximal LAD. There is a 70% stenosis in the 1st Diagonal. * Circumflex There is a 90% stenosis in the Proximal Circumflex. There is a 60% stenosis in the Mid Circumflex. There is a 100% stenosis in the 1st Marginal. OM1 fills via patent SVG graft. There is a 99% stenosis in the 2nd Marginal- small, diffusely diseased vessel * Right Coronary Artery There is a 80% stenosis in the Proximal RCA. There is a 99% stenosis in the Mid RCA. There is a 100% stenosis in the Distal RCA. Distal RCA, R PDA fill via patent SVG graft. Additional Findings: Grafts * The saphenous vein graft to the Right PDA is patent. * The saphenous vein graft to the 1st Marginal is patent. * The left internal mammary graft to the Mid LAD is patent. 06/2018 echo with saline Impressions: LVEF 50%. LV systolic function grossly appears low normal. However, the LV subendocardial border is not well visualized in all views. Consider repeat limited study with Definity. Atypical septal motion consistent with post-operative status. Mild left ventricular diastolic dysfunction. Normal right ventricular structure and function. No significant valvular dysfunction. No pulmonary hypertension based on TR gradient obtained. No evidence of PFO with agitated saline contrast. Anesthesia Exam vitals reviewed in chart Weight: 126 kg NPO (# of Hours): > 8 hr - HEENT Pupil (Motor): Pupils equal Mallampati: III Teeth: Missing (only has one tooth) Oral Opening: Greater than 3 - LENS MARKER LOC: Oriented - Cardiac Rhythm: Regular Murmur: None - Pulmonary Breath Sounds: bilateral Clear Respiratory Effort: Symmetrical Anesthesia Assess/Plan ASA Score: 4 Level of consciousness: Cooperative, Oriented Anesthetic Plan: General Monitoring Plan: Standard Monitors, A-Line Recovery Plan: PACU
[2019-06-09] MEDS ORDERED: Dexamethasone 4 MG/ML VIAL ONE (07:08)
[2019-06-09] MEDS ORDERED: Ondansetron 4 MG/2 ML VIAL ONE (07:08)
[2019-06-09] MEDS ORDERED: Lidocaine -MPF 2% 2 ML VIAL ONE ×2 (07:08→07:37)
[2019-06-09] MEDS ORDERED: *HR* Rocuronium Bromide 50 MG/5 ML VIAL ONE (07:09)
[2019-06-09] MEDS ORDERED: *HR* Phenylephrine 10 MG/ML VIAL ONE ×2 (07:09→10:26)
[2019-06-09] MEDS ORDERED: *HR* FentaNYL (PF) 100 MCG/2 ML VIAL ONE ×2 (07:09→11:58)
[2019-06-09] MEDS ORDERED: *HR* Propofol 200 MG/20 ML VIAL IVP ONE ×2 (07:09→07:16)
[2019-06-09] MEDS ORDERED: Lidocaine HCL 4 ML Topical Solution (Laryng-O-Jet Kit Sterile Pak) TP ONE (07:09)
[2019-06-09] MEDS ORDERED: *HR* Midazolam HCl 2 MG/2 ML VIAL ONE (07:09)
[2019-06-09] MEDS ORDERED: *HR* Succinylcholine 200 MG/10 ML VIAL IVP ONE (07:09)
[2019-06-09] MEDS ORDERED: *HR* HYDROmorphone (PF) 1 MG/ML SYRINGE IVP PRN (07:10)
[2019-06-09] MEDS ORDERED: Famotidine 20 MG/2 ML VIAL IVP ONE (07:10)
[2019-06-09] MEDS ORDERED: *HR* OxyCODONE Immed Rel 5 MG TABLET PO PRN (07:10)
[2019-06-09] MEDS ORDERED: Acetaminophen IV 1,000 MG/100 ML INFUS..BTL IVPB ONE (07:10)
[2019-06-09] MEDS ORDERED: Gabapentin 300 MG CAPSULE PO ONE (07:10)
[2019-06-09] MEDS ORDERED: *HR* Labetalol 20 MG/4 ML SYRINGE IVP PRN (07:10)
[2019-06-09] MEDS ORDERED: *HR* Promethazine 25 MG/ML VIAL IVP PRN (07:10)
[2019-06-09] MEDS ORDERED: Ondansetron 4 MG/2 ML VIAL IVP ONE (07:10)
[2019-06-09] MEDS ORDERED: *HR* Remifentanil 1 MG VIAL IVP ONE ×4 (07:16→11:38)
[2019-06-09] MEDS ORDERED: Heparin 1,000 UNITS/500 mL 500 ML ONE (07:38)
--- NOTE | 2019-06-09 07:39 | History & Physical Report ---
Date of Encounter: 06/09/19 Time of Encounter: 07:36 24 Hour HP Update - Instructions Instructions: If the History and Physical is less than 30 days old and was completed prior to A.M. admission and or procedure and has NOT been updated on calendar day of procedure please complete this update prior to performing procedure. - Update Patient reports changes in Medical Condition: No Changes in examination, assessment, or condition: No Changes in Medication: No Preop tests/diagnostics Reviewed: Yes Pre-Op MRSA Screen: Negative Surgery Remains Indicated: Yes Consent for Planned Operative Procedure(s) Verified: Yes - Pre-Operative Checklist Preoperative Checklist Indicated: No Prophylactic Antibiotic Ordered: Yes Home Medications Include Beta Aspen: No Beta Aspen Taken Today (Day of Surgery): No Beta Aspen Taken Yesterday (Day Prior to Surgery): No Is VTE Prophylaxis Indicated?: Yes
[2019-06-09] MEDS ORDERED: *HR* PHENYLEPHRINE 1,000 MCG/10 ML SYRINGE IVP ONE (08:25)
[2019-06-09] MEDS ORDERED: *HR* HYDROMORPHONE 2 MG/ML VIAL ONE (09:59)
--- NOTE | 2019-06-09 12:22 | Orthopedic Operative Note ---
Date of procedure: 06/09/19 Pre-op diagnosis: Spondylolisthesis, lumbar stenosis, lumbar radiculopathy Post-op diagnosis: same Operation/Findings: Posterior lumbar interbody fusion L3-S1: The patient successfully underwent general endotracheal anesthesia. The patient was given antibiotics prior to the start of the procedure. Compression boots and stockings were used for deep vein thrombosis prophylaxis. A Vazquez catheter was placed. Leads for neuro monitoring were placed on the upper and lower extremities. This included the cranium. The neuro monitoring personnel confirmed there were satisfactory readings prior to the start of the procedure. The patient was turned prone on the Rivera table. The back was prepped and draped in the usual sterile fashion. An incision was was marked and centered over the involved L3-S1 levels in the mid line. The incision was deepened through the lumbar fascia. Bovie cautery and Howell elevators were used to reflect the paraspinal musculature at the lateral extent of the transverse processes of the involved L3-S1 levels. Nereida clamps were placed over the L4 and L5 spinous processes. An intraoperative lateral fluoroscopy graft was obtained. A conversation was held between the surgeon and radiologist and both confirmed we had the correct operative levels. We then placed pedicle screws in standard fashion with the aid of fluoroscopy and anatomic landmarks. Briefly a starter awl was used. A gearshift was subsequently used to enter the commercial airplane pilot hole via a transpedicular route into the vertebral body. The commercial airplane pilot hole was tapped with an undersized instrument, and subsequently eight 6.5 x 40 mm pedicle screws were placed bilaterally at the indicated L3, L4, L5, and S1 levels. The screws were tested with the aid of the neurologic monitoring staff via pedicle screw stimulation. All reading suggested there was no significant cortical wall breech. The screws were also evaluated fluoro- graphically and appeared to be in satisfactory position. We then turned our attention to the decompression portion of the procedure. We removed the supraspinous and interspinous ligaments and subsequently the insertion of the ligamentum flavum on the undersurface of the proximal L5 lamina was dislodged with a curette. We then removed the ligamentum flavum as well as undercut the facets at this L5-S1 level to decompress the lateral recesses. We also performed a L5 laminectomy. After the decompression, which was over and above that which was required to place the interbody graft, the foramen and traversing roots at this level were found to be free and patent. We also took part of the medial facetsin order to aid in the decompression. We moved proximally to the L4-5 level and again did a decompression which included removing these supraspinous and interspinous ligaments, removing the ligamentum flavum, undercutting the L4-5 facets, and doing a and L4 laminectomy. We also did medial facetectomies at this level. We moved proximally to the L3-4 level and again removed the supraspinous and interspinous ligaments, undercut the L3-4 facets, removed hypertrophied ligamentum flavum, did medial facetectomies, and partial L3 laminectomy. We then protected the neural elements including the thecal sac and traversing nerve root on the left with a dural retractor. We made an annulotomy into the L5-S1 disc space and then removed entire disc material using Pituitary instruments. We trialed various size grafts after the endplates were prepared for graft insertion. A 10 x 26 enter body graft fit well within the disc space. We obtained some bone from the left posterior superior iliac spine through us a separate incision and combined with this with the bone which we had saved from the laminectomy portion of the procedure. This autograft bone was first placed in the anterior portion of the L5-S1 disc space and additional bone was placed within the interbody graft spacer. We then placed the interbody graft spacer obliquely across the L5-S1 disc space towards the midline while protecting the neural elements with a root retractor. When the graft was found to be in satisfactory position the sales agent business services was removed. We then prepared and interbody graft at the same way as we did at the L5-S1 level at the L4-5 level. This included protecting the neural elements with a dural retractor, neck and annulotomy of the L4-5 disc space, removing entire disc material, trialing with a 10 x 26 mm graft which fit well, packing the anterior portion of the L4-5 disc space with autograft bone, and ultimately placing a 10 x 26 mm interbody graft filled with bone obliquely across the L4-5 disc space. When found to be in appropriate position the sales agent business services was removed. We then copiously irrigated the wound. We then decorticated the L3, L4, L5, and S1 transverse processes as well as the facet joints of the involved L3-4, L4-5, and L5-S1 levels to aid in the posterolateral fusion. We placed autograft bone in the lateral gutters over these regions. We then placed rods within the screw heads of the involved L3, L4, L5, and S1 levels and first locked the distal screws and then subsequently locked the proximal screws so as to improve and reduce the spondylolisthesis previously seen. We then closed the wound in layers with 1 Vicryl for the fascia, 2-0 Vicryl. Subcutaneous tissue, and Dermabond was used for skin closure. Sterile dressings were placed over the wound. The patient was turned supine on a hospital bed and extubated. All sponge instruments and needle counts were correct at the end of the procedure. The patient tolerated the procedure well without complications. Anesthesia: BREE Surgeon: Tee Stephens Jr Was there an assistant signal maintainer present: No Estimated blood loss (cc): 225 Specimen: None Condition: stable Disposition: PACU
--- NOTE | 2019-06-09 13:13 | Anesthesia Evaluation Post Op ---
Date of Encounter: 06/09/19 Time of Encounter: 13:15 - Vital Signs Vital Signs: Vital Signs/O2 Sat/Glucose, Most Current Temp Pulse Resp BP Pulse Ox 06/09/19 12:59 92 12 125/68 97 06/09/19 12:49 97.7 F 82 14 134/66 95 06/09/19 12:39 91 12 126/73 93 06/09/19 12:29 101.2 F H 115 16 166/104 95 - Lungs Lungs: Clear Ascult./Percussion - Airway Airway: Non-obstructed - Cardiovascular Regular Rate - Mental Status Mental Status: Alert & Oriented, Answers Appropriately - Pain Pain Scale: 2 - Nausea Vomiting Nausea Vomiting: Not Present - Hydration Hydration: NPO - Discharge PostOp Status: Transfer Patient to floor
[2019-06-09] MEDS ORDERED: Acetaminophen 325 MG TABLET PO PRN (13:46)
[2019-06-09] MEDS ORDERED: Ondansetron 4 MG/2 ML VIAL IVP PRN (13:46)
[2019-06-09] MEDS ORDERED: Fluticasone Propionate Nasal 50 MCG/SPRAY BOTTLE NS PRN (13:46)
[2019-06-09] MEDS ORDERED: Naloxone 0.4 MG/ML INJ IVP PRN (13:46)
[2019-06-09] MEDS: Gabapentin 300 MG CAPSULE PO SCH ×2 (15:12→20:36)
[2019-06-09] MEDS: Ringers Solution, Lactated 1,000 ML IVC SCH (15:12)
[2019-06-09] MEDS: *HR* OxyCODONE Immed Rel 5 MG TABLET PO PRN (17:40)
[2019-06-09] MEDS ORDERED: *HR* Dextrose 50 % in Water (Syg) 50 ML SYRINGE IVP PRN (19:04)
[2019-06-09] MEDS ORDERED: D5% in Water 1,000 ML IVC PRN (19:04)
[2019-06-09] MEDS ORDERED: Dextrose Gel 15 GM/37.5 ML TUBE PO PRN ×2 (19:04)
[2019-06-09] MEDS: Insulin LISPRO 300 UNITS/3 ML VIAL SQ SCH (20:29)
[2019-06-09] MEDS: Insulin DETEMIR 100 UNIT/ML X5UNITS SQ SCH (20:37)
[2019-06-09] MEDS: *HR* HYDROcodone/Acet 5/325 mg TABLET PO PRN (20:37)
[2019-06-10] MEDS: *HR* OxyCODONE Immed Rel 5 MG TABLET PO PRN ×4 (03:19→19:52)
[2019-06-10] MEDS: *HR* HYDROcodone/Acet 5/325 mg TABLET PO PRN ×2 (05:55→17:26)
[2019-06-10] MEDS: Isosorbide MONOnitrate (24 HR) 60 MG TAB.ER.24H PO SCH (08:44)
[2019-06-10] MEDS: Gabapentin 300 MG CAPSULE PO SCH ×3 (08:45→21:38)
[2019-06-10] MEDS: Losartan/HCTZ 50-12.5 TABLET PO SCH (08:45)
[2019-06-10] MEDS: *HR* GlyBURIDE 5 MG TABLET PO SCH (08:45)
[2019-06-10] MEDS: *HR* Metformin 500 MG TABLET PO SCH (08:45)
[2019-06-10] MEDS: amLODIPine 5 MG TABLET PO SCH (08:46)
[2019-06-10] MEDS: Simethicone 80 MG TAB.CHEW PO PRN (08:53)
[2019-06-10] MEDS: Insulin LISPRO 300 UNITS/3 ML VIAL SQ SCH ×4 (10:19→21:35)
[2019-06-10] MEDS: (Ezetimibe 10 MG) PO SCH (10:20)
--- NOTE | 2019-06-10 12:24 | Orthopedics Progress Note ---
Date of Encounter: 06/10/19 Time of Encounter: 12:30 - Assessment and Plan (1) Spondylisthesis Current Visit: Yes Status: Chronic Qualifiers: Spinal region: unspecified Qualified Code(s): M43.10 - Spondylolisthesis, site unspecified (2) Lumbar stenosis Current Visit: Yes Status: Chronic Qualifiers: Neurogenic claudication status: unspecified Qualified Code(s): M48.061 - Spinal stenosis, lumbar region without neurogenic claudication (3) Lumbar radiculopathy Current Visit: Yes Status: Chronic (4) Status post lumbar spinal fusion Current Visit: Yes Status: Acute Subjective Principal diagnosis: s/p PLIF Interval history: POD#1 s/p Posterior lumbar interbody fusion L3-S1 [Spondylolisthesis, lumbar stenosis, lumbar radiculopathy] 06/09/19 Patient seen at bedside. Patient moaning and stating he feels terrible. Family at bedside. Patient reports pain in back as well as gas. A&Ox3 Dressing and incision c/d/i No calf tenderness, erythema, or warmth. Neurovascularly intact b/l LE. Labwork, vitals, and medications reviewed. Pain control: Adequate Participating in therapy. All questions and concerns addressed. Educated on use of incentive spirometer, ambulation, and hydration. Patient educated on post-operative restrictions and care. Addressed: see above. Patient course and disposition discussed with Dr. Stephens D/C plan: continue postoperative care Objective Vital signs: Vital Signs Temp Pulse Resp BP Pulse Ox 06/10/19 08:16 98.7 F 93 15 161/91 96 06/10/19 03:09 98.8 F 79 18 161/75 98 06/09/19 22:51 98.8 F 82 16 127/76 96 06/09/19 19:03 98.6 F 80 15 132/82 95 06/09/19 17:34 83 14 138/76 94 06/09/19 16:00 98.4 F 81 16 128/86 96 06/09/19 15:15 97 06/09/19 14:55 97.9 F 85 14 134/91 93 06/09/19 14:27 97.7 F 81 16 130/86 95 06/09/19 14:02 97.8 F 82 14 129/84 95 06/09/19 13:29 98.0 F 85 14 122/65 95 06/09/19 13:09 97.4 F L 86 16 111/69 97 06/09/19 12:59 92 12 125/68 97 06/09/19 12:49 97.7 F 82 14 134/66 95 06/09/19 12:39 91 12 126/73 93 06/09/19 12:29 101.2 F H 115 16 166/104 95 Intake and Output 06/09/19 06/10/19 06/10/19 23:59 07:59 15:59 Intake Total 400 / 400 800 / 1000 200 / 1000 Output Total 1350 / 1725 1600 / 1600 Balance -950 / -1325 -800 / -600 200 / -600 Intake: IV Fluids 100 / 100 100 / 100 Ancef 2,000 MG In 0.9 % Sodium 100 / 100 100 / 100 Chloride 100 ML @ 200 mls/hr IVPB Q8HR JAKY Rx#:[id number] Oral 300 / 300 700 / 900 200 / 900 Output: Catheter 1350 / 1350 1600 / 1600 Other: Weight 126.4 kg Blood Glucose* 160 114 Patient Weight 06/10/19 23:59 Weight 126.4 kg - Labs CBC & BMP: 06/13/19 05:24 06/13/19 05:24 Labs: Abnormal lab results POC Glucose 210 mg/dL (70-99) H 06/10/19 09:54 Consult Discharge Plan - Plan Referrals: Savita Murry MD [Primary Care Provider] - Prescriptions: Docusate Sodium [Colace] 100 mg PO BID 5 Days #10 capsule Levofloxacin [Levaquin] 750 mg PO DAILY 7 Days #7 tablet Acetaminophen [Non-Aspirin Extra Strength] 500 mg PO Q6H PRN 7 Days #28 tablet PRN Reason: Mild To Moderate Pain Tizanidine HCl 4 mg PO Q6H PRN 7 Days #28 tablet PRN Reason: Spasms
[2019-06-10] MEDS ORDERED: tiZANidine 4 MG TABLET PO PRN (12:25)
[2019-06-10] MEDS ORDERED: diazePAM 5 MG TABLET PO PRN ×2 (12:40→20:27)
[2019-06-10] MEDS: Nicotine 21 MG PATCH.TD24 TD SCH (14:04)
[2019-06-10] MEDS ORDERED: Temazepam 15 MG CAPSULE PO PRN (20:28)
[2019-06-10] MEDS: Insulin DETEMIR 100 UNIT/ML X5UNITS SQ SCH (22:31)
[2019-06-11] MEDS: *HR* OxyCODONE Immed Rel 5 MG TABLET PO PRN ×3 (02:01→13:35)
[2019-06-11] MEDS: Insulin LISPRO 300 UNITS/3 ML VIAL SQ SCH ×4 (08:05→20:21)
[2019-06-11] MEDS: Isosorbide MONOnitrate (24 HR) 60 MG TAB.ER.24H PO SCH (09:51)
[2019-06-11] MEDS: Gabapentin 300 MG CAPSULE PO SCH ×2 (09:52→15:55)
[2019-06-11] MEDS: Losartan/HCTZ 50-12.5 TABLET PO SCH (09:52)
[2019-06-11] MEDS: amLODIPine 5 MG TABLET PO SCH (09:52)
[2019-06-11] MEDS: *HR* Metformin 500 MG TABLET PO SCH (09:52)
[2019-06-11] MEDS: *HR* GlyBURIDE 5 MG TABLET PO SCH (09:53)
[2019-06-11] MEDS: Nicotine 21 MG PATCH.TD24 TD SCH (09:53)
[2019-06-11] MEDS: (Ezetimibe 10 MG) PO SCH (10:03)
[2019-06-11 15:04] LABS: Alanine Aminotransferase 46 Units/L (7-52); Albumin 3.8 g/dL (3.5-5.7); Albumin/Globulin Ratio 1.5 (1.1-2.2); Alkaline Phosphatase 39 Units/L (34-104); Aspartate Amino Transferase 67 Units/L (13-39); BUN/Creatinine Ratio 21 (6-26); Bilirubin,Total 0.6 mg/dL (0.3-1.0); Blood Urea Nitrogen 21 mg/dL (6-20); Calcium 8.7 mg/dL (8.6-10.3); Carbon Dioxide 27 mEq/L (23-29); Chloride 98 mEq/L (98-107); Globulin 2.5 g/dL (2.4-3.5); Glucose 72 mg/dL (70-105); Osmolality,Calculated 280 (280-300); Potassium 2.9 mEq/L (3.5-5.1); Sodium 134 mEq/L (136-145); Total Protein 6.3 g/dL (6.4-8.9); eGFR For African Americans > 60 (> 60); eGFR For Non-African Americans > 60 (> 60)
[2019-06-11 15:20] LABS: Troponin I 0.03 ng/mL (< 0.04)
[2019-06-11] MEDS ORDERED: 0.9 % Sodium Chloride 500 ML IV ONE (15:28)
[2019-06-11 15:48] LABS: Magnesium 2.2 mg/dL (1.6-2.6)
[2019-06-11] MEDS ORDERED: 0.9 % Sodium Chloride 500 ML IVC PRN (16:28)
--- NOTE | 2019-06-11 16:33 | Internal Medicine Consult Note ---
Date of Encounter: 06/11/19 Time of Encounter: 16:00 - Assessment and Plan (1) Syncope Current Visit: Yes Status: Acute Assessment and plan: although it appears to be consistent with vasovagal syncope, given his history of CVA, would recommend MRI head if his lumbar hardwares are MRI compatible. Discussed with the primary team check orthostatics and EKG keep on telemetry Echo 06/2018 EF 50% without an evidence of PFO, carotid doppler 06/2018 only showed nonstenotic plaques Qualifiers: Syncope type: unspecified Qualified Code(s): R55 - Syncope and collapse (2) Pneumonia Current Visit: Yes Status: Suspected Assessment and plan: pt is not able to be weaned off on O2 and is noted to have productive cough CXR showed R basilar airspace disease that can be compatible with atelectasis or pneumonia after the exam, pt also developed BP of 99/63 ?early sepsis check CBC, procalcitonin, lactic acid, and blood cultures -> will likely start levaquin if he has leukocytosis sputum culture if able to expectorate Qualifiers: Pneumonia type: due to unspecified organism Laterality: right Lung location: lower lobe of lung Qualified Code(s): J18.1 - Lobar pneumonia, unspe cified organism (3) Hypokalemia Current Visit: Yes Status: Acute Assessment and plan: replete PO (4) DM (diabetes mellitus), type 2, uncontrolled Current Visit: No Status: Chronic Assessment and plan: Patient's glycemic control reviewed. Will hold off on metformin and glyburide. D/c basal insulin as well low dose sliding scale Qualifiers: Glycemic state: with hypoglycemia Coma presence: without coma Qualified Code(s): E11.649 - Type 2 diabetes mellitus with hypoglycemia without coma (5) AAA (abdominal aortic aneurysm) Current Visit: No Status: Chronic Assessment and plan: s/p repair Qualifiers: Presence of rupture: without rupture Qualified Code(s): I71.4 - Abdominal aortic aneurysm, without rupture (6) CAD (coronary artery disease) Current Visit: No Status: Chronic Assessment and plan: s/p CABG [facility] 07/2018 showed severe TVD with 3 out of 3 patent bypass grafts home meds resumed Qualifiers: Coronary Disease-Associated Artery/Lesion type: bypass graft [place] vs. transplanted heart: [place] heart Associated angina: without angina Qualified Code(s): I25.810 - Atherosclerosis of coronary artery bypass graft(s) without angina pectoris (7) HTN (hypertension) Current Visit: No Status: Chronic Assessment and plan: hold off on home meds in view of borderline BP Qualifiers: Hypertension type: essential hypertension Qualified Code(s): I10 - Essential (primary) hypertension (8) Obesity (BMI 30-39.9) Current Visit: No Status: Chronic - Time Spent With Patient Total time spent is greater than 50% in coordination of care (as documented) at patient's floor/unit and/or counseling patient: Greater than 35 minutes Internal Medicine - CN: HPI - Data of Consult Patient: known to practice within the last 3 years Consult date: 06/11/19 Requesting Physician: Tee Stephens Jr MD - Consult Narrative Reason for consult: Syncope, cough History of present illness: Mr. Harry is a 48 year old male with history of CAD status post CABG, AAA repair, CVA, hypertension, diabetes, who was admitted for elective L3-S1 fusion on 06/09. He is POD #2 today and was noted to be coughing this morning when the primary team was rounding. Later on, it was reported that he had episodes of syncope during his PT sessions as well as when he was laying down. Lasted for seconds, not associated with postictal confusion, and patient did not have any focal neurological deficits including slurring of speech, facial droop, diplopia, dysphagia, limb weakness/numbness. Patient did not have any prodromal symptoms such as chest pain, palpitation, blurring of vision prior to the syncope but he does admit that he felt dizzy before and after the episode. Also, patient has been coughing greyish sputum since yesterday and had been requiring O2 for the last 2 days. No fever measured but pt was hot and had wet rag on his head to "cool himself down". No nausea/vomiting, abdominal pain, diarrhea, or dysuria. No neck stiffness, joint pain, or new rash. He was afebrile and hemodynamic is stable at time of my exam. Labwork showed hypo kalemia of 2.9 with CBC pending. CXR showed right base airspace opacity that may represent atelectasis versus pneumonia. Past Med Surg Social Fam HX - Past Medical History Attestation: Yes The following information was validated with the patient. Medical history: arthritis, COPD, coronary artery disease, CVA, diabetes, hyperlipidemia, hypertension Additional medical history: sleep apnea, neuropathy Psychiatric history: depression - Past Surgical History Surgical History: coronary bypass (CABG), herniorrhaphy Additional surgical history: Left iliac artery embolization 06/13/18, inguinal her luis m repair in childhood, right upper extremity tendon repair - Social History Smoking Status: Current every day smoker Packs per day: 1 Smokeless Tobacco Status: No Alcohol use: none Drug use: none - Family History Son Hx Family Cardiac Disorders: Yes (Hypertension) Grandmother Hx Family Endocrine Disorder: Yes (DM) Paternal Hx Family Endocrine Disorder: Yes (DM) All systems: reviewed and no additional remarkable complaints except as stated Internal Medicine - CN: Meds Amlodipine Besylate 10 mg PO DAILY 07/22/18 [History] Fluticasone Propionate Nasal [Flonase] 2 spr NS DAILY PRN 07/22/18 [History] Insulin DETEMIR [Levemir] 10 unit SQ HS 07/22/18 [History] Omeprazole [PriLOSEC] 20 mg PO DAILY 07/22/18 [History] Atorvastatin Calcium [Lipitor] 80 mg PO HS 06/09/19 [History] Carvedilol 12.5 mg PO BID 06/09/19 [History] Ezetimibe 10 mg PO DAILY 06/09/19 [History] Gabapentin [Neurontin] 300 mg PO TID 06/09/19 [History] Isosorbide MONOnitrate (24 HR) [Imdur] 60 mg PO DAILY 06/09/19 [History] Losartan/Hydrochlorothiazide [Losartan-Hctz 100-25 mg Tab] 1 tab PO DAILY [History] Metformin HCl 1,000 mg PO DAILY 06/09/19 [History] OxyCODONE/APAP 7.5/325 [Percocet 7.5/325 MG] 1 tab PO Q6H PRN 06/09/19 [History] Venlafaxine [Effexor] 75 mg PO DAILY 06/09/19 [History] glyBURIDE [GlyBURIDE] 5 mg PO DAILY 06/09/19 [History] Allergy/AdvReac Type Severity Reaction Status Date / Time lisinopril Allergy Severe Swelling Verified 06/09/19 07:22 of Lip/Tongue/Throat codeine Allergy Intermediate Gastrointestinal Verified 06/09/19 07:22 Upset Hospitalist - CN: Exam - Constitutional Vitals: Temp Pulse Resp BP Pulse Ox 98.2 F 72 20 99/63 94 06/11/19 16:24 06/11/19 16:24 06/11/19 16:24 06/11/19 16:24 06/11/19 16:24 Exam: General: Alert and oriented, not in acute distress. HEENT:EOMI, pupils equal, round and reactive. No nystagmus Cardiovascular:Normal S1 & S2, No JVD. Pulse regular. Lungs: Scattered rales R>L lung base Abdomen:Soft, non-tender, no rigidity. MSK: Lumbar dressing c/d/i Neurological: CN II-XII intact, power and sensation fully intact in all 4 limbs. No cerebellar signs, pronator drift -ve, Babinski downgoing bilaterally Skin:Normal color, no rash, no lesions. Pulses:Carotid and radial pulses normal +2. Rest of the physical exam is non contributory Internal Medicine - CN: Reslt - Labs CBC & Chem 7: 06/11/19 14:28 Labs: BMP 06/11/19 14:28 Sodium 134 L Potassium 2.9 L Chloride 98 Carbon Dioxide 27 BUN 21 H Creatinine 1.02 Glucose 72 Calcium 8.7 Cardiac Enzymes 06/11/19 Range/Units 14:28 Troponin I 0.03 (< 0.04) ng/mL Liver Function 06/11/19 Range/Units 14:28 Total Bilirubin 0.6 (0.3-1.0) mg/dL AST 67 H (13-39) Units/L ALT 46 (7-52) Units/L Alkaline Phosphatase 39 (34-104) Units/L Albumin 3.8 (3.5-5.7) g/dL - Impressions Impressions Chest X-Ray 06/11/19 14:49 IMPRESSION: 1. Right base airspace opacity, likely atelectasis. No pulmonary finding to account for patient's hypoxia. 2. Mild widening of the upper mediastinum compared to exam of June 2018. Differential includes vascular congestion, thoracic aortic aneurysm, and mediastinal mass. D/ / Garett Banks MD / Garett Banks MD Interpreting Provider: Garett Banks MD Consult Discharge Plan - Plan Referrals: Savita Murry MD [Primary Care Provider] -
[2019-06-11 16:54] LABS: Basophils % 0.2 %; Eosinophils % 0.1 %; Hematocrit 26.4 % (37.5-50.1); Hemoglobin 9.1 g/dL (12.9-16.9); Immature Granulocytes % 0.6 % (0-4); Lymphocytes # 2.5 K/mcL (0.6-4.6); Lymphocytes % 15.2 %; Mean Corpuscular HGB Conc 34.5 g/dL (31.6-35.5); Mean Corpuscular Hemoglobin 32.4 pg (28.0-33.3); Mean Platelet Volume 9.8 fL (9.4-12.4); Monocytes # 2.1 K/mcL (0.0-1.3); Monocytes % 13.2 %; Neutrophils # 11.5 K/mcL (1.6-8.9); Platelet Count 159 K/mcL (140-400); Red Blood Count 2.81 M/mcL (4.19-5.50); Red Cell Distribution Width 13.2 % (11.5-14.5); Segmented Neutrophils % 70.7 %; White Blood Count 16.3 K/mcL (4.3-11.1)
[2019-06-11] MEDS: Piperacillin/Tazobactam 3.375 GM in 0.9 % Sodium Chloride Mini Bag 100 ML IVPB SCH (19:46)
[2019-06-11] MEDS: Ringers Solution, Lactated 1,000 ML IVC SCH (19:48)
[2019-06-12] MEDS: Piperacillin/Tazobactam 3.375 GM in 0.9 % Sodium Chloride Mini Bag 100 ML IVPB SCH ×4 (02:09→22:48)
[2019-06-12 05:18] LABS: Basophils % 0.2 %; Eosinophils % 0.4 %; Hematocrit 26.7 % (37.5-50.1); Immature Granulocytes % 0.5 % (0-4); Lymphocytes # 2.6 K/mcL (0.6-4.6); Lymphocytes % 22.9 %; Mean Corpuscular HGB Conc 33.7 g/dL (31.6-35.5); Mean Corpuscular Hemoglobin 32.1 pg (28.0-33.3); Mean Corpuscular Volume 95.4 fL (83.0-100.0); Mean Platelet Volume 10.2 fL (9.4-12.4); Monocytes # 1.2 K/mcL (0.0-1.3); Monocytes % 10.4 %; Neutrophils # 7.4 K/mcL (1.6-8.9); Platelet Count 119 K/mcL (140-400); Red Cell Distribution Width 13.2 % (11.5-14.5); Segmented Neutrophils % 65.6 %; White Blood Count 11.3 K/mcL (4.3-11.1)
[2019-06-12 06:27] LABS: Alanine Aminotransferase 39 Units/L (7-52); Albumin 3.6 g/dL (3.5-5.7); Albumin/Globulin Ratio 1.4 (1.1-2.2); Alkaline Phosphatase 33 Units/L (34-104); Aspartate Amino Transferase 52 Units/L (13-39); BUN/Creatinine Ratio 21 (6-26); Bilirubin,Total 0.5 mg/dL (0.3-1.0); Blood Urea Nitrogen 19 mg/dL (6-20); Calcium 8.2 mg/dL (8.6-10.3); Carbon Dioxide 28 mEq/L (23-29); Chloride 102 mEq/L (98-107); Globulin 2.6 g/dL (2.4-3.5); Glucose 91 mg/dL (70-105); Osmolality,Calculated 286 (280-300); Potassium 3.8 mEq/L (3.5-5.1); Sodium 137 mEq/L (136-145); Total Protein 6.2 g/dL (6.4-8.9); eGFR For African Americans > 60 (> 60); eGFR For Non-African Americans > 60 (> 60)
[2019-06-12] MEDS: Insulin LISPRO 300 UNITS/3 ML VIAL SQ SCH ×4 (07:38→21:59)
[2019-06-12] MEDS: Nicotine 21 MG PATCH.TD24 TD SCH (09:02)
[2019-06-12] MEDS ORDERED: amLODIPine 5 MG TABLET PO SCH (09:48)
--- NOTE | 2019-06-12 09:50 | Internal Med Progress Note ---
Hospitalist Progress Note - Encounter Date of Encounter: 06/12/19 Time of Encounter: 08:45 - Subjective Interval History: Patient appears much more alert and interactive today. No longer complains of subjective fever. Reports improvement in his cough and sputum production as well. Overall blood pressure appears to have improved. - Exam Vitals: Temp Pulse Resp BP Pulse Ox 97.7 F 63 17 166/91 98 06/12/19 06:57 06/12/19 06:57 06/12/19 06:57 06/12/19 06:57 06/12/19 06:57 Exam: General: Alert and oriented, not in acute distress. Cardiovascular:Normal S1 & S2, No JVD. Pulse regular. Lungs: Scattered rales R>L lung base Abdomen:Soft, non-tender, no rigidity. MSK: Lumbar dressing c/d/i Neurological: no focal deficits - Assessment and Plan (1) Pneumonia Current Visit: Yes Status: Acute Assessment and Plan: pt is not able to be weaned off on O2 and is noted to have productive cough CXR showed R basilar airspace disease that can be compatible with atelectasis or pneumonia pt had borderline BP yesterday and leukocytosis on lab. Started on vanc/zosyn with clinical improvement will continue IV abx for today and transition to PO levaquin tomorrow to complete a total of 7 day course sputum culture if able to expectorate (2) Syncope Current Visit: Yes Status: Acute Assessment and Plan: although it appears to be consistent with vasovagal syncope +/- orthostatics, given his history of CVA, MRI was done that did not show any acute infarct. orthostatic vitals not checked yesterday, may be too late to check it now given that he was given IVF overnight already with normalization of BP no arrhythmia detected on telemetry Echo 06/2018 EF 50% without an evidence of PFO, carotid doppler 06/2018 only showed nonstenotic plaques (3) Hypokalemia Current Visit: Yes Status: Resolved Assessment and Plan: normalized (4) DM (diabetes mellitus), type 2, uncontrolled Current Visit: No Status: Chronic Assessment and Plan: Continue to hold off on metformin and glyburide. low dose sliding scale (5) AAA (abdominal aortic aneurysm) Current Visit: No Status: Chronic Assessment and Plan: s/p repair (6) CAD (coronary artery disease) Current Visit: No Status: Chronic Assessment and Plan: s/p CABG [facility] 07/2018 showed severe TVD with 3 out of 3 patent bypass grafts home meds resumed (7) HTN (hypertension) Current Visit: No Status: Chronic Assessment and Plan: will resume norvasc at lower dose (8) Obesity (BMI 30-39.9) Current Visit: No Status: Chronic - Time Spent with Patient Total time spent is greater than 50% in coordination of care (as documented) at patient's floor/unit and/or counseling patient: 25 - 35 minutes Plan of Care Discussed with: patient Internal Medicine: Result - Labs CBC & Chem 7: 06/12/19 04:51 06/12/19 04:51 Labs: Short CBC 06/11/19 06/12/19 Range/Units 16:40 04:51 WBC 16.3 H 11.3 H (4.3-11.1) K/mcL Hgb 9.1 L 9.0 L (12.9-16.9) g/dL Hct 26.4 L 26.7 L (37.5-50.1) % Plt Count 159 119 L (140-400) K/mcL Neutrophils # 11.5 H 7.4 (1.6-8.9) K/mcL BMP 06/11/19 06/12/19 14:28 04:51 Sodium 134 L 137 Potassium 2.9 L 3.8 D Chloride 98 102 Carbon Dioxide 27 28 BUN 21 H 19 Creatinine 1.02 0.89 Glucose 72 91 Calcium 8.7 8.2 L Cardiac Enzymes 06/11/19 Range/Units 14:28 Troponin I 0.03 (< 0.04) ng/mL Liver Function 06/11/19 06/12/19 Range/Units 14:28 04:51 Total Bilirubin 0.6 0.5 (0.3-1.0) mg/dL AST 67 H 52 H (13-39) Units/L ALT 46 39 (7-52) Units/L Alkaline Phosphatase 39 33 L (34-104) Units/L Albumin 3.8 3.6 (3.5-5.7) g/dL - Impressions Impressions Chest X-Ray 06/11/19 14:49 IMPRESSION: 1. Right base airspace opacity, likely atelectasis. No pulmonary finding to account for patient's hypoxia. 2. Mild widening of the upper mediastinum compared to exam of June 2018. Differential includes vascular congestion, thoracic aortic aneurysm, and mediastinal mass. D/ / Garett Banks MD / Garett Banks MD Interpreting Provider: Garett Banks MD Brain MRI 06/11/19 16:23 IMPRESSION: No acute infarct. D/ / Arsen Wolfe MD / Arsen Wolfe MD Interpreting Provider: Arsen Wolfe MD Lumbar Spine X-Ray 06/12/19 09:22 IMPRESSION: Posterior lumbar spinal fusion of L3 through S1 with discectomies of L4-5 and L5-S1. No acute hardware failure. Normal alignment. D/ / Timmy Marquez MD / Timmy Marquez MD Interpreting Provider: Timmy Marquez MD Consult Discharge Plan - Plan Referrals: Savita Murry MD [Primary Care Provider] - (1) Pneumonia Qualifiers: Pneumonia type: due to unspecified organism Laterality: right Lung location: lower lobe of lung Qualified Code(s): J18.1 - Lobar pneumonia, unspecified organism (2) Syncope Qualifiers: Syncope type: unspecified Qualified Code(s): R55 - Syncope and collapse (4) DM (diabetes mellitus), type 2, uncontrolled Qualifiers: Glycemic state: with hypoglycemia Coma presence: without coma Qualified Code(s): E11.649 - Type 2 diabetes mellitus with hypoglycemia without coma (5) AAA (abdominal aortic aneurysm) Qualifiers: Presence of rupture: without rupture Qualified Code(s): I71.4 - Abdominal aortic aneurysm, without rupture (6) CAD (coronary artery disease) Qualifiers: Coronary Disease-Associated Artery/Lesion type: bypass graft [place] vs. transplanted heart: [place] heart Associated angina: without angina Qualified Code(s): I25.810 - Atherosclerosis of coronary artery bypass graft(s) without angina pectoris (7) HTN (hypertension) Qualifiers: Hypertension type: essential hypertension Qualified Code(s): I10 - Essential (primary) hypertension
[2019-06-12] MEDS: (Ezetimibe 10 MG) PO SCH (11:30)
--- NOTE | 2019-06-12 17:46 | Discharge Summary ---
Orders not resulted at time of discharge: Pending orders 06/11/19 16:20 Culture,Sputum with Gram Stain [] Stat 06/11/19 16:40 Culture,Blood [] Stat 06/11/19 17:08 Legionella Antigen [] Stat S. Pneumoniae Antigen [] Stat Date of Encounter: 06/12/19 Time of Encounter: 13:00 - Discharge Diagnosis (1) Spondylisthesis Priority: Primary Status: Chronic Qualifiers: Spinal region: unspecified Qualified Code(s): M43.10 - Spondylolisthesis, site unspecified (2) Lumbar stenosis Priority: Primary Status: Chronic Qualifiers: Neurogenic claudication status: unspecified Qualified Code(s): M48.061 - Spinal stenosis, lumbar region without neurogenic claudication (3) Status post lumbar spinal fusion Priority: Primary Status: Acute (4) Pneumonia Priority: Secondary Status: Acute Qualifiers: Pneumonia type: due to unspecified organism Laterality: right Lung location: lower lobe of lung Qualified Code(s): J18.1 - Lobar pneumonia, unspecified organism - Hospital Course Hospital course: Mr. Harry is a 48 year old male POD#4 s/p Posterior lumbar interbody fusion L3- S1 [Spondylolisthesis, lumbar stenosis, lumbar radiculopathy] 06/09/19 The patient's postoperative course was complicated by syncope with subsequent diagnosis of pneumonia. Hospitalist team consulted and input was greatly appreciated. Progressed from intravenous analgesic needs to oral analgesic needs only. Remained neurovascularly intact and mobilized satisfactorily. All radiographic studies were satisfactory. Patient course and disposition was followed by Dr. Stephens. Patient seen by Dr. Stephens as discharging physician on this day, 06/13/19. Patient is discharged to home with plan for rehabilitation and outpatient orthopedic follow up has been arranged. Time spent discussing smoking cessation with patient: 3 to 10 minutes - Time Spent with Patient Total time spent providing and/or coordinating discharge services: - Discharge Medications Prescriptions: New Docusate Sodium [Colace] 100 mg PO BID 5 Days #10 capsule Tizanidine HCl 4 mg PO Q6H PRN 7 Days #28 tablet PRN Reason: Spasms Acetaminophen [Non-Aspirin Extra Strength] 500 mg PO Q6H PRN 7 Days #28 tablet PRN Reason: Mild To Moderate Pain Levofloxacin [Levaquin] 750 mg PO DAILY 7 Days #7 tablet Continued Amlodipine Besylate 10 mg PO DAILY Fluticasone Propionate Nasal [Flonase] 2 spr NS DAILY PRN PRN Reason: Allergy Symptoms Insulin DETEMIR [Levemir] 10 unit SQ HS Omeprazole [PriLOSEC] 20 mg PO DAILY Atorvastatin Calcium [Lipitor] 80 mg PO HS Gabapentin [Neurontin] 300 mg PO TID Isosorbide MONOnitrate (24 HR) [Imdur] 60 mg PO DAILY Losartan/Hydrochlorothiazide [Losartan-Hctz 100-25 mg Tab] 1 tab PO DAILY Venlafaxine [Effexor] 75 mg PO DAILY Carvedilol 12.5 mg PO BID Ezetimibe 10 mg PO DAILY glyBURIDE [GlyBURIDE] 5 mg PO DAILY Metformin HCl 1,000 mg PO DAILY OxyCODONE/APAP 7.5/325 [Percocet 7.5/325 MG] 1 tab PO Q6H PRN PRN Reason: Mild To Moderate Pain Home Medications: Amlodipine Besylate 10 mg PO DAILY 07/22/18 [History] Fluticasone Propionate Nasal [Flonase] 2 spr NS DAILY PRN 07/22/18 [History] Insulin DETEMIR [Levemir] 10 unit SQ HS 07/22/18 [History] Omeprazole [PriLOSEC] 20 mg PO DAILY 07/22/18 [History] Atorvastatin Calcium [Lipitor] 80 mg PO HS 06/09/19 [History] Carvedilol 12.5 mg PO BID 06/09/19 [History] Ezetimibe 10 mg PO DAILY 06/09/19 [History] Gabapentin [Neurontin] 300 mg PO TID 06/09/19 [History] Isosorbide MONOnitrate (24 HR) [Imdur] 60 mg PO DAILY 06/09/19 [History] Losartan/Hydrochlorothiazide [Losartan-Hctz 100-25 mg Tab] 1 tab PO DAILY 06/09/19 [History] Metformin HCl 1,000 mg PO DAILY 06/09/19 [History] OxyCODONE/APAP 7.5/325 [Percocet 7.5/325 MG] 1 tab PO Q6H PRN 06/09/19 [History] Venlafaxine [Effexor] 75 mg PO DAILY 06/09/19 [History] glyBURIDE [GlyBURIDE] 5 mg PO DAILY 06/09/19 [History] Acetaminophen [Non-Aspirin Extra Strength] 500 mg PO Q6H PRN 7 Days #28 tablet 06/12/19 [Rx] Docusate Sodium [Colace] 100 mg PO BID 5 Days #10 capsule 06/12/19 [Rx] Levofloxacin [Levaquin] 750 mg PO DAILY 7 Days #7 tablet 06/12/19 [Rx] Tizanidine HCl 4 mg PO Q6H PRN 7 Days #28 tablet 06/12/19 [Rx] Allergies/Adverse Reactions: Allergy/AdvReac Type Severity Reaction Status Date / Time lisinopril Allergy Severe Swelling Verified 06/09/19 07:22 of Lip/Tongue/Throat codeine Allergy Intermediate Gastrointestinal Verified 06/09/19 07:22 Upset Date of admission: 06/09/19 13:43 Primary care physician: Savita Murry MD Consults: 06/09/19 13:46 Consult to Occupational Therapy [CONS] Routine Comment: Evaluate, develop and implement POC Reason for Consult: Postoperative rehabilitation Does patient have active BEDREST order?: No Is patient medically & hemodynamically stable?: Yes Patient assessed for mobility or mobilized this visit?: No Consult to Physical Therapy [CONS] Routine Comment: Evaluate, develop and implement POC Reason for Consult: Postoperative rehabilitation Does patient have active BEDREST order?: No Is patient medically & hemodynamically stable?: Yes Patient assessed for mobility or mobilized this visit?: No Consult to Spine Navigator [CONS] [CONS] Routine 06/09/19 14:31 Consult to Technical Healthcare Consultant [CONS] Routine Reason for SW Consult: discharge needs 06/11/19 15:29 Consult to Hospitalist [CONS] Stat Consulting Provider: Hospitalist Isael Reason for Consult: syncope Time Notified: 15:29 Call Completed: Yes Discharging clinician: Tee Stephens Jr Anticipated date of discharge: 06/13/19 - VTE Documentation of Mechanical Device: Graduated compression elastic hosiery Labs on day of discharge: Labs from last 24 hours 06/12/19 06/12/19 06/12/19 16:25 07:31 04:51 WBC RBC Hgb Hct MCV MCH MCHC RDW Plt Count MPV Immature Gran % Seg Neutrophils % Lymphocytes % Monocytes % Eosinophils % Basophils % Neutrophils # Lymphocytes # Monocytes # Eosinophils # Basophils # Sodium 137 Potassium 3.8 D Chloride 102 Carbon Dioxide 28 BUN 19 Creatinine 0.89 Est GFR ( Amer) > 60 Est GFR (Non-Af Amer) > 60 BUN/Creatinine Ratio 21 Glucose 91 POC Glucose 192 H 106 H Calculated Osmolality 286 Calcium 8.2 L Total Bilirubin 0.5 AST 52 H ALT 39 Alkaline Phosphatase 33 L Serum Total Protein 6.2 L Albumin 3.6 Globulin 2.6 Albumin/Globulin Ratio 1.4 Procalcitonin 06/12/19 06/11/19 06/11/19 04:51 20:06 16:40 WBC 11.3 H RBC 2.80 L Hgb 9.0 L Hct 26.7 L MCV 95.4 MCH 32.1 MCHC 33.7 RDW 13.2 Plt Count 119 L MPV 10.2 Immature Gran % 0.5 Seg Neutrophils % 65.6 Lymphocytes % 22.9 Monocytes % 10.4 Eosinophils % 0.4 Basophils % 0.2 Neutrophils # 7.4 Lymphocytes # 2.6 Monocytes # 1.2 Eosinophils # 0.0 Basophils # 0.0 Sodium Potassium Chloride Carbon Dioxide BUN Creatinine Est GFR ( Amer) Est GFR (Non-Af Amer) BUN/Creatinine Ratio Glucose POC Glucose 81 Calculated Osmolality Calcium Total Bilirubin AST ALT Alkaline Phosphatase Serum Total Protein Albumin Globulin Albumin/Globulin Ratio Procalcitonin 0.12 06/11/19 14:00 WBC RBC Hgb Hct MCV MCH MCHC RDW Plt Count MPV Immature Gran % Seg Neutrophils % Lymphocytes % Monocytes % Eosinophils % Basophils % Neutrophils # Lymphocytes # Monocytes # Eosinophils # Basophils # Sodium Potassium Chloride Carbon Dioxide BUN Creatinine Est GFR ( Amer) Est GFR (Non-Af Amer) BUN/Creatinine Ratio Glucose POC Glucose 82 Calculated Osmolality Calcium Total Bilirubin AST ALT Alkaline Phosphatase Serum Total Protein Albumin Globulin Albumin/Globulin Ratio Procalcitonin Preliminary micro results at discharge 06/11/19 16:40 Blood Culture - Preliminary Peripheral Venipuncture Culture is incubating and being continuously monitored for growth. Final report to follow. 06/11/19 16:40 Blood Culture - Preliminary Peripheral Venipuncture Culture is incubating and being continuously monitored for growth. Final report to follow. - Impressions ITS Impressions Fluoroscopy 06/09/19 08:35 IMPRESSION: Intraprocedural fluoroscopic spot images as above. See separate procedure report for more information. D/ / Oliver Leon MD / Oliver Leon MD Interpreting Provider: Oliver Leon MD Lumbar Spine X-Ray 06/09/19 08:35 IMPRESSION: Intraprocedural fluoroscopic spot images as above. See separate procedure report for more information. D/ / Oliver Leon MD / Oliver Leon MD Interpreting Provider: Oliver Leon MD Chest X-Ray 06/11/19 14:49 IMPRESSION: 1. Right base airspace opacity, likely atelectasis. No pulmonary finding to account for patient's hypoxia. 2. Mild widening of the upper mediastinum compared to exam of June 2018. Differential includes vascular congestion, thoracic aortic aneurysm, and mediastinal mass. D/ / Garett Banks MD / Garett Banks MD Interpreting Provider: Garett Banks MD Brain MRI 06/11/19 16:23 IMPRESSION: No acute infarct. D/ / Arsen Wolfe MD / Arsen Wolfe MD Interpreting Provider: Arsen Wolfe MD Lumbar Spine X-Ray 06/12/19 09:22 IMPRESSION: Posterior lumbar spinal fusion of L3 through S1 with discectomies of L4-5 and L5-S1. No acute hardware failure. Normal alignment. D/ / Timmy Marquez MD / Timym Marquez MD Interpreting Provider: Timmy Marquez MD - Patient Status Disposition: Home Health Service Condition: Fair Functional capacity at discharge: uses cane/walker Overall status at discharge: patient is progressing back to baseline - Ambulatory Orders Ambulatory Orders: Basic Metabolic Panel [CHEM] Time Frame: 5 Days, Facility: [facility], Location: Lab - Discharge Instructions Instructions: Pneumonia (DC) Follow Up With: Liliana Gonzales PAC [Physician Gas Well Pumper] - 06/23/19 9:15 am (also on 09/08/19 at 0815) Dino Newberry DO [Partnered Physician] - 07/30/19 9:30 am Eros Olmstead MD [Partnered Physician] - 08/12/19 1:00 pm Savita Murry MD [Primary Care Provider] - Additional Instructions: Discharge Instructions: Lumbar Please call [facility] ([phone]), your Primary Care Physician, or report to the ER if you have any of the following symptoms: Fever greater that 101.5, increased pain/redness/drainage/odor for your incision site or any other concerning symptoms. ACTIVITY * May Shower * No Tub Baths * No lifting greater than 10 pounds * No Smoking * No Swimming * No off Ground Activities (Running, Climbing, Ladders, Horseback Riding) * No Driving * Wear Back Brace when up walking if lumbar fusion done * Incentive Spirometer 10 times an hour MEDICATIONS: Upon discharge resume your home medications. Take all the medications as prescribed. Take a stool softener if taking narcotic pain medications. Stool softeners are only effective if you drink enough fluids. Drink 6-8 glass of water or fluids a day, unless this is not allowed for another health problem. Despite using stool softeners, if you haven't had a bowel movement in 3 days, please switch to a gentle laxative. Gentle laxatives are sold over the counter. You should have a bowel movement within 24 hours, if not call the office. You will be discharged from the hospital with a prescription for pain medication. You are encouraged to decrease the use of narcotic pain medication as tolerated. Should you require a refill, please call the office. It is best to call 48-72 hours in advance of needing a prescription refill so you don't run out of medication. WOUND CARE: Remove Dressing Tomorrow. Leave incision open to air. Pat dry when you get out of the shower. FOLLOW-UP: Please follow up with your surgeon in the orthopedic clinic in 2 weeks from the day of surgery. References: [employer] (www.apta.org) - Diet and Activity Activity: as per physical therapy Diet: advance to your usual diet
[2019-06-12] MEDS: Simethicone 80 MG TAB.CHEW PO PRN (17:53)
[2019-06-12] MEDS: *HR* HYDROcodone/Acet 5/325 mg TABLET PO PRN (17:53)
[2019-06-12] MEDS: Ringers Solution, Lactated 1,000 ML IVC SCH ×2 (19:29→19:32)
[2019-06-12] MEDS ORDERED: Gabapentin 100 MG CAPSULE PO ONE (22:14)
[2019-06-13] MEDS: *HR* HYDROcodone/Acet 5/325 mg TABLET PO PRN ×2 (01:42→11:32)
[2019-06-13 05:37] LABS: Basophils % 0.2 %; Eosinophils # 0.1 K/mcL (0.0-0.6); Eosinophils % 1.1 %; Hematocrit 26.9 % (37.5-50.1); Hemoglobin 9.2 g/dL (12.9-16.9); Immature Granulocytes % 0.5 % (0-4); Lymphocytes # 2.3 K/mcL (0.6-4.6); Lymphocytes % 27.2 %; Mean Corpuscular HGB Conc 34.2 g/dL (31.6-35.5); Mean Corpuscular Hemoglobin 32.7 pg (28.0-33.3); Mean Corpuscular Volume 95.7 fL (83.0-100.0); Mean Platelet Volume 9.5 fL (9.4-12.4); Monocytes # 0.8 K/mcL (0.0-1.3); Monocytes % 9.4 %; Neutrophils # 5.2 K/mcL (1.6-8.9); Platelet Count 124 K/mcL (140-400); Red Blood Count 2.81 M/mcL (4.19-5.50); Red Cell Distribution Width 13.2 % (11.5-14.5); Segmented Neutrophils % 61.6 %; White Blood Count 8.4 K/mcL (4.3-11.1)
[2019-06-13 05:56] LABS: BUN/Creatinine Ratio 18 (6-26); Blood Urea Nitrogen 16 mg/dL (6-20); Calcium 8.5 mg/dL (8.6-10.3); Carbon Dioxide 27 mEq/L (23-29); Chloride 102 mEq/L (98-107); Glucose 100 mg/dL (70-105); Magnesium 2.3 mg/dL (1.6-2.6); Osmolality,Calculated 285 (280-300); Potassium 3.2 mEq/L (3.5-5.1); Sodium 137 mEq/L (136-145); eGFR For African Americans > 60 (> 60); eGFR For Non-African Americans > 60 (> 60)
[2019-06-13] MEDS ORDERED: Potassium Chloride Elixir 20 MEQ/15 ML UDC PO SCH (08:00)
--- NOTE | 2019-06-13 08:15 | Orthopedics Progress Note ---
Date of Encounter: 06/11/19 Time of Encounter: 12:30 - Assessment and Plan (1) Spondylisthesis Current Visit: Yes Status: Chronic Qualifiers: Spinal region: unspecified Qualified Code(s): M43.10 - Spondylolisthesis, site unspecified (2) Lumbar stenosis Current Visit: Yes Status: Chronic Qualifiers: Neurogenic claudication status: unspecified Qualified Code(s): M48.061 - Spinal stenosis, lumbar region without neurogenic claudication (3) Lumbar radiculopathy Current Visit: Yes Status: Chronic (4) Status post lumbar spinal fusion Current Visit: Yes Status: Acute Subjective Principal diagnosis: s/p PLIF Interval history: POD#2 s/p Posterior lumbar interbody fusion L3-S1 [Spondylolisthesis, lumbar stenosis, lumbar radiculopathy] 06/09/19 Patient seen at bedside. Patient states feeling much better and has been attempting to participate with therapy. A&Ox3 Dressing and incision c/d/i No calf tenderness, erythema, or warmth. Neurovascularly intact b/l LE. Labwork, vitals, and medications reviewed. Pain control: Adequate Participating in therapy. All questions and concerns addressed. Educated on use of incentive spirometer, ambulation, and hydration. Patient educated on post-operative restrictions and care. Addressed: see above. Patient course and disposition discussed with Dr. Stephens D/C plan: continue postoperative care Objective Vital signs: Vital Signs Temp Pulse Resp BP Pulse Ox 06/13/19 08:05 83 20 182/115 96 06/13/19 04:31 98.6 F 79 18 165/73 99 06/13/19 03:31 97.4 F L 68 20 149/82 95 06/12/19 23:32 98.7 F 81 16 172/89 98 06/12/19 23:00 97.9 F 76 18 168/98 98 06/12/19 22:32 97.7 F 74 20 157/86 95 06/12/19 20:34 95 06/12/19 18:56 98.2 F 73 20 163/81 95 06/12/19 16:13 97.9 F 88 20 174/101 99 06/12/19 12:50 93 06/12/19 11:40 98.1 F 74 18 148/76 100 Intake and Output 06/12/19 06/13/19 06/13/19 23:59 07:59 15:59 Intake Total 800 / 1740 337 / 337 Output Total 1999 / 420 1300 / 1300 Balance -1200 / -2460 -963 / -963 Intake: IV Fluids 350 / 550 100 / 100 Zosyn 3.375 GM In 0.9 % Sodium 100 / 300 100 / 100 Chloride (Mini-Bag +) 100 ML @ 25 mls/hr IVPB Q8HR [facility] Rx#: [id number] Vancocin 1,500 MG In 0.9 % 250 / 250 Sodium Chloride 250 ML @ 166. 667 mls/hr IVPB Q12H [facility] Rx#: [id number] Oral 450 / 1190 237 / 237 Output: Urine 19990 1300 / 1300 Other: Meal Dinner Percent of Meal Consumed 75% Weight 128 kg Blood Glucose* 101 120 Patient Weight 06/13/19 23:59 Weight 128 kg - Labs CBC & BMP: 06/13/19 05:24 06/13/19 05:24 Labs: Abnormal lab results WBC 11.3 K/mcL (4.3-11.1) H 06/12/19 04:51 RBC 2.81 M/mcL (4.19-5.50) L 06/13/19 05:24 Hgb 9.2 g/dL (12.9-16.9) L 06/13/19 05:24 Hct 26.9 % (37.5-50.1) L 06/13/19 05:24 Plt Count 124 K/mcL (140-400) L 06/13/19 05:24 Neutrophils # 11.5 K/mcL (1.6-8.9) H 06/11/19 16:40 Monocytes # 2.1 K/mcL (0.0-1.3) H 06/11/19 16:40 Sodium 134 mEq/L (136-145) L 06/11/19 14:28 Potassium 3.2 mEq/L (3.5-5.1) L 06/13/19 05:24 BUN 21 mg/dL (6-20) H 06/11/19 14:28 POC Glucose 101 mg/dL (70-99) H 06/12/19 21:48 Calcium 8.5 mg/dL (8.6-10.3) L 06/13/19 05:24 AST 52 Units/L (13-39) H 06/12/19 04:51 Alkaline Phosphatase 33 Units/L (34-104) L 06/12/19 04:51 Serum Total Protein 6.2 g/dL (6.4-8.9) L 06/12/19 04:51 Vancomycin Trough 12 mcg/mL (5-10) H 06/13/19 05:24 Consult Discharge Plan - Plan Referrals: Savita Murry MD [Primary Care Provider] - Prescriptions: Docusate Sodium [Colace] 100 mg PO BID 5 Days #10 capsule Levofloxacin [Levaquin] 750 mg PO DAILY 7 Days #7 tablet Acetaminophen [Non-Aspirin Extra Strength] 500 mg PO Q6H PRN 7 Days #28 tablet PRN Reason: Mild To Moderate Pain Tizanidine HCl 4 mg PO Q6H PRN 7 Days #28 tablet PRN Reason: Spasms
--- NOTE | 2019-06-13 08:20 | Orthopedics Progress Note ---
Date of Encounter: 06/12/19 Time of Encounter: 12:30 - Assessment and Plan (1) Spondylisthesis Current Visit: Yes Status: Chronic Qualifiers: Spinal region: unspecified Qualified Code(s): M43.10 - Spondylolisthesis, site unspecified (2) Lumbar stenosis Current Visit: Yes Status: Chronic Qualifiers: Neurogenic claudication status: unspecified Qualified Code(s): M48.061 - Spinal stenosis, lumbar region without neurogenic claudication (3) Lumbar radiculopathy Current Visit: Yes Status: Chronic (4) Status post lumbar spinal fusion Current Visit: Yes Status: Acute (5) Pneumonia Current Visit: Yes Status: Acute Qualifiers: Pneumonia type: due to unspecified organism Laterality: right Lung location: lower lobe of lung Qualified Code(s): J18.1 - Lobar pneumonia, unspecified organism (6) Syncope Current Visit: Yes Status: Acute Qualifiers: Syncope type: unspecified Qualified Code(s): R55 - Syncope and collapse Subjective Principal diagnosis: s/p PLIF Interval history: POD#3 s/p Posterior lumbar interbody fusion L3-S1 [Spondylolisthesis, lumbar aurelio nosis, lumbar radiculopathy] 06/09/19 Patient seen at bedside. Patient states feeling much better. Spouse at bedside Yesterday (POD#2) after visit with patient, notified by nursing staff that patient had syncopal episode when getting up to work with therapy. Labs and imaging ordered with patient having second syncopal episode while laying supine resting in bed. Dr. Stephens was notified and Hospitalist team was consulted. patient with h/o stroke and therefore MRI brain was ordered. With further work up by hospitalist team, patient diagnosed with pneumonia. A&Ox3 Dressing and incision c/d/i No calf tenderness, erythema, or warmth. Neurovascularly intact b/l LE. Labwork, vitals, and medications reviewed. Pain control: Adequate Participating in therapy. All questions and concerns addressed. Educated on use of incentive spirometer, ambulation, and hydration. Patient educated on post-operative restrictions and care. Addressed: see above. Patient course and disposition discussed with Dr. Stephens D/C plan: continue postoperative care. Plan for discharge tomorrow, 06/13 with PO antibiotics. Keep outpatient follow up as scheduled Patient to see PCP following discharge to follow up re: pneumonia Objective Vital signs: Vital Signs Temp Pulse Resp BP Pulse Ox 06/13/19 08:05 83 20 182/115 96 06/13/19 04:31 98.6 F 79 18 165/73 99 06/13/19 03:31 97.4 F L 68 20 149/82 95 06/12/19 23:32 98.7 F 81 16 172/89 98 06/12/19 23:00 97.9 F 76 18 168/98 98 06/12/19 22:32 97.7 F 74 20 157/86 95 06/12/19 20:34 95 06/12/19 18:56 98.2 F 73 20 163/81 95 06/12/19 16:13 97.9 F 88 20 174/101 99 06/12/19 12:50 93 06/12/19 11:40 98.1 F 74 18 148/76 100 Intake and Output 06/12/19 06/13/19 06/13/19 23:59 07:59 15:59 Intake Total 800 / 1740 337 / 337 Output Total 2000 / 4200 1300 / 1300 Balance -1200 / -2460 -963 / -963 Intake: IV Fluids 350 / 550 100 / 100 Zosyn 3.375 GM In 0.9 % Sodium 100 / 300 100 / 100 Chloride (Mini-Bag +) 100 ML @ 25 mls/hr IVPB Q8HR [facility] Rx#: [id number] Vancocin 1,500 MG In 0.9 % 250 / 250 Sodium Chloride 250 ML @ 166. 667 mls/hr IVPB Q12H [facility] Rx#: [id number] Oral 450 / 1190 237 / 237 Output: Urine 2000 / 4200 1300 / 1300 Other: Meal Dinner Percent of Meal Consumed 75% Weight 128 kg Blood Glucose* 101 120 Patient Weight 06/13/19 23:59 Weight 128 kg - Labs CBC & BMP: 06/13/19 05:24 06/13/19 05:24 Labs: Abnormal lab results WBC 11.3 K/mcL (4.3-11.1) H 06/12/19 04:51 RBC 2.81 M/mcL (4.19-5.50) L 06/13/19 05:24 Hgb 9.2 g/dL (12.9-16.9) L 06/13/19 05:24 Hct 26.9 % (37.5-50.1) L 06/13/19 05:24 Plt Count 124 K/mcL (140-400) L 06/13/19 05:24 Neutrophils # 11.5 K/mcL (1.6-8.9) H 06/11/19 16:40 Monocytes # 2.1 K/mcL (0.0-1.3) H 06/11/19 16:40 Sodium 134 mEq/L (136-145) L 06/11/19 14:28 Potassium 3.2 mEq/L (3.5-5.1) L 06/13/19 05:24 BUN 21 mg/dL (6-20) H 06/11/19 14:28 POC Glucose 101 mg/dL (70-99) H 06/12/19 21:48 Calcium 8.5 mg/dL (8.6-10.3) L 06/13/19 05:24 AST 52 Units/L (13-39) H 06/12/19 04:51 Alkaline Phosphatase 33 Units/L (34-104) L 06/12/19 04:51 Serum Total Protein 6.2 g/dL (6.4-8.9) L 06/12/19 04:51 Vancomycin Trough 12 mcg/mL (5-10) H 06/13/19 05:24 Consult Discharge Plan - Plan Referrals: Savita Murry MD [Primary Care Provider] - Prescriptions: Docusate Sodium [Colace] 100 mg PO BID 5 Days #10 capsule Levofloxacin [Levaquin] 750 mg PO DAILY 7 Days #7 tablet Acetaminophen [Non-Aspirin Extra Strength] 500 mg PO Q6H PRN 7 Days #28 tablet PRN Reason: Mild To Moderate Pain Tizanidine HCl 4 mg PO Q6H PRN 7 Days #28 tablet PRN Reason: Spasms
[2019-06-13] MEDS: (Ezetimibe 10 MG) PO SCH (08:31)
[2019-06-13] MEDS: Nicotine 21 MG PATCH.TD24 TD SCH (08:31)
[2019-06-13] MEDS: Insulin LISPRO 300 UNITS/3 ML VIAL SQ SCH ×2 (08:31→11:28)
[2019-06-13] MEDS ORDERED: amLODIPine 5 MG TABLET PO SCH (09:00)
[2019-06-13] MEDS ORDERED: levoFLOXacin 750 MG TABLET PO SCH (09:00)
--- NOTE | 2019-06-13 10:46 | Internal Med Progress Note ---
Hospitalist Progress Note - Encounter Date of Encounter: 06/13/19 Time of Encounter: 09:30 - Subjective Interval History: No acute events overnight. Patient is eager to be discharged this morning. Denies any shortness of breath or worsening sputum production. - Exam Vitals: Temp Pulse Resp BP Pulse Ox 98.6 F 83 20 177/83 96 06/13/19 04:31 06/13/19 08:05 06/13/19 08:05 06/13/19 09:29 06/13/19 08:05 Exam: General: Alert and oriented, not in acute distress. Cardiovascular:Normal S1 & S2, No JVD. Pulse regular. Lungs: Scattered rales R>L lung base but improving aeration Abdomen:Soft, non-tender, no rigidity. MSK: Lumbar dressing c/d/i Neurological: no focal deficits - Assessment and Plan (1) Pneumonia Current Visit: Yes Status: Acute Assessment and Plan: pt was not able to be weaned off on O2 and is noted to have productive cough CXR showed R basilar airspace disease that can be compatible with atelectasis or pneumonia pt had borderline BP on 06/11 and leukocytosis. Started on vanc/zosyn with clinical improvement he is now weaned off on O2 and improving hemodynamics as well as WBC can be discharged on a total of 7 days of levaquin (2) Syncope Current Visit: Yes Status: Acute Assessment and Plan: although it appears to be consistent with vasovagal syncope +/- orthostatics, given his history of CVA, MRI was done that did not show any acute infarct. no arrhythmia detected on telemetry Echo 06/2018 EF 50% without an evidence of PFO, carotid doppler 06/2018 only showed nonstenotic plaques (3) Hypokalemia Current Visit: Yes Status: Resolved Assessment and Plan: replete again today repeat BMP in 5 days as outpatient (4) DM (diabetes mellitus), type 2, uncontrolled Current Visit: No Status: Chronic Assessment and Plan: Continue to hold off on metformin and glyburide. low dose sliding scale (5) AAA (abdominal aortic aneurysm) Current Visit: No Status: Chronic Assessment and Plan: s/p repair (6) CAD (coronary artery disease) Current Visit: No Status: Chronic Assessment and Plan: s/p CABG [facility] 07/2018 showed severe TVD with 3 out of 3 patent bypass grafts home meds resumed (7) HTN (hypertension) Current Visit: No Status: Chronic Assessment and Plan: increase norvasc back to his home dose and coreg also resumed can restart other home meds including Imdur and losartan/HCTZ if BP continues to remain elevated. Can be titrated in outpatient setting (8) Obesity (BMI 30-39.9) Current Visit: No Status: Chronic - Time Spent with Patient Total time spent is greater than 50% in coordination of care (as documented) at patient's floor/unit and/or counseling patient: 25 - 35 minutes Plan of Care Discussed with: patient Internal Medicine: Result - Labs CBC & Chem 7: 06/13/19 05:24 06/13/19 05:24 Labs: Short CBC 06/13/19 Range/Units 05:24 WBC 8.4 (4.3-11.1) K/mcL Hgb 9.2 L (12.9-16.9) g/dL Hct 26.9 L (37.5-50.1) % Plt Count 124 L (140-400) K/mcL Neutrophils # 5.2 (1.6-8.9) K/mcL BMP 06/13/19 05:24 Sodium 137 Potassium 3.2 L Chloride 102 Carbon Dioxide 27 BUN 16 Creatinine 0.91 Glucose 100 Calcium 8.5 L Consult Discharge Plan - Plan Referrals: Savita Murry MD [Primary Care Provider] - Prescriptions: Docusate Sodium [Colace] 100 mg PO BID 5 Days #10 capsule Levofloxacin [Levaquin] 750 mg PO DAILY 7 Days #7 tablet Acetaminophen [Non-Aspirin Extra Strength] 500 mg PO Q6H PRN 7 Days #28 tablet PRN Reason: Mild To Moderate Pain Tizanidine HCl 4 mg PO Q6H PRN 7 Days #28 tablet PRN Reason: Spasms (1) Pneumonia Qualifiers: Pneumonia type: due to unspecified organism Laterality: right Lung location: lower lobe of lung Qualified Code(s): J18.1 - Lobar pneumonia, unspecified organism (2) Syncope Qualifiers: Syncope type: unspecified Qualified Code(s): R55 - Syncope and collapse (4) DM (diabetes mellitus), type 2, uncontrolled Qualifiers: Glycemic state: with hypoglycemia Coma presence: without coma Qualified Code(s): E11.649 - Type 2 diabetes mellitus with hypoglycemia without coma (5) AAA (abdominal aortic aneurysm) Qualifiers: Presence of rupture: without rupture Qualified Code(s): I71.4 - Abdominal aortic aneurysm, without rupture (6) CAD (coronary artery disease) Qualifiers: Coronary Disease-Associated Artery/Lesion type: bypass graft [place] vs. transplanted heart: [place] heart Associated angina: without angina Qualified Code(s): I25.810 - Atherosclerosis of coronary artery bypass graft(s) without angina pectoris (7) HTN (hypertension) Qualifiers: Hypertension type: essential hypertension Qualified Code(s): I10 - Essential (primary) hypertension
[2019-06-13 11:14] VITALS: BP 154/77
[2019-06-13] MEDS ORDERED: Aminoglycoside Consult 1 EACH MC ONE (12:49)
--- NOTE | 2019-06-29 09:10 | Electrocardiograph Report ---
[address] [address] Test Date: 2019-06-11 Pat Name: Sher Harry Department: 114 Room: [facility] [place] Gender: M Bottom Presser: : [id number] Requested By: Liliana Cloud Order Number: [id number] Reading MD: Clay Lopez Measurements Intervals [place] Rate: 75 P: 54 TN: 214 QRS: 23 QRSD: 105 T: 99 QT: 401 QTc: 430 Interpretive Statements SINUS RHYTHM WITH FIRST DEGREE AV BLOCK ST DEVIATION AND MODERATE T-WAVE ABNORMALITY, CONSIDER LATERAL ISCHEMIA Electronically Signed On 06-29-2019 8:57:35 EDT by Clay Lopez
== END 2019-06-13 12:50 | disposition home health service (06) | DRG 453 ==
LOC: SAMDAY 06:02 → 3NENU 13:43
PROVIDERS: ADMIT Orthopaedic Surgery Orthopaedic Surgery of the Spine; ATTEND Orthopaedic Surgery Orthopaedic Surgery of the Spine